=== PATIENT | female | born 1945 | race Caucasian/White ===

== ENCOUNTER 2017-03-29 09:29 | Outpatient (CLI) | payer MEDICARE, MEDICAID ==
[2017-03-29 11:55] LABS: Hematocrit 35.4 % (36.0-47.0); Mean Platelet Volume 6.8 fL (7.4-10.4); Red Blood Cell (RBC) Count 3.98 mill/uL (4.20-5.40); White Blood Cell (WBC) Count 8.9 thou/uL (4.8-10.8)
[2017-03-29 12:00] LABS: PTT 34.4 SEC (22.9-36.1); Prothrombin Time 14.7 SEC (12.0-14.7)
[2017-03-29 12:22] LABS: ALT (SGPT) 32 U/L (8-55); AST (SGOT) 35 U/L (5-34); Alkaline Phosphatase 149 U/L (40-150); Anion Gap 12 mmol/L (10-20); BUN (Urea Nitrogen) 9 mg/dL (9.8-20.1); Bilirubin, Total 0.8 mg/dL (0.2-1.2); Calc. Creatinine Clearance 0 mL/min (70-130); Calcium 9.3 mg/dL (7.8-10.44); Carbon Dioxide 27 mmol/L (23-31); Chloride 104 mmol/L (98-107); Cholesterol 117 mg/dl (< 200 Desired); Estimated GFR-MDRD 79; Globulin 3.2 g/dL (2.4-3.5); LDL Cholesterol, Calculated 61 mg/dL; Protein, Total 6.8 g/dL (6.0-8.3)
== END 2017-03-29 09:30 | disposition home or self-care (01) ==
LOC: LABBT 09:29
PROVIDERS: ATTEND Internal Medicine Cardiovascular Disease
DX: Z01.818 Encounter for other preprocedural examination (principal); R94.39 Abnormal result of other cardiovascular function study
CPT/HCPCS: 80053; 80061; 85027; 85610; 85730; 93005; 93010

== ENCOUNTER 2019-01-29 11:52 | Inpatient (IN) | payer MEDICARE, MEDICAID ==
[~2019-01-29 11:52] MED LIST: Iopamidol 370 76% 100 ML VIAL ONE
[2019-01-29] MEDS ORDERED: Midazolam HCl 5 mg/ml Vial ONE ×3 (12:02→13:37)
[2019-01-29] MEDS ORDERED: Fentanyl 100 MCG/2 ML VIAL ONE ×4 (12:02→13:37)
[2019-01-29 12:09] LABS: Actual Bicarbonate (HCO3a) 19.1 mEq/L (22-28); Analyzer IN Cardio ER; Base Excess (BEa) -8.9 mEq/L (-2.0 to +3.0); Calcium, Ionized 1.26 mmol/L (1.12-1.30); Carboxyhemoglobin (COHb) 0.1 gm% (0.0-3.0); Hemoglobin (Hb) 11.8 g/dL (12.0-16.0); Potassium - ABG Lab 3.64 mmol/L (3.70-5.30)
[2019-01-29 12:11] LABS: Puncture Site LR
[2019-01-29 12:52] LABS: Hemoglobin 10.5 g/dL (12.0-16.0); Mean Corpuscular HGB CONC 32.7 g/dL (32.0-36.0); Mean Corpuscular Hemoglobin 27.4 pg (27.0-31.0); Mean Corpuscular Volume 83.8 fL (78.0-98.0); RBC Distribution Width 15.1 % (11.5-14.5); Red Blood Cell (RBC) Count 3.84 mill/uL (4.20-5.40); White Blood Cell (WBC) Count 24.4 thou/uL (4.8-10.8)
[2019-01-29 13:04] LABS: Bilirubin Negative (Negative); Blood, Urine 2+ (Negative); Clarity Clear (Clear); Glucose, Urine (Dipstick) 500 mg/dL (Negative); Leukocyte 25 Leu/uL (Negative); Nitrite Negative (Negative); Protein, Urine (Dipstick) 100 mg/dL (Neg-Trace); Squamous Epithelial 0-3 HPF (0-3)
[2019-01-29 13:08] LABS: Anisocytosis SLIGHT = 6-15 cells (100X) (0-5/hpf); Band 23 % (5-11); Lymphocytes 1 % (21-51); MDiff Complete? YES; Mean Platelet Volume 9.1 fL (7.4-10.4); Monocytes 1 % (0-10); Neutrophil 75 % (42-75); Ovalocytes SLIGHT = 2-5 cells (100X) (0-1/hpf); Platelet Count 36 thou/uL (130-400); Platelet Morphology Comment Appears Decreased; Polychromasia SLIGHT = 2-3 cells (100X) (0-2/hpf)
[2019-01-29 13:12] LABS: Bacteria/HPF 2+ HPF (None Seen)
--- NOTE | 2019-01-29 13:21 | RAD ---
PORTABLE CHEST: Date: 01/29/19 HISTORY: Mental status change. COMPARISON: 04/17/12. FINDINGS: ET tube and NG tube have been placed and appear adequately positioned. There is hazy alveolar infiltr ate in both upper lungs. Lower lobes appear clear. Heart is mildly enlarged. IMPRESSION: Hazy bilateral upper lobe infiltrative changes. POS: [facility]
[2019-01-29] MEDS ORDERED: Fentanyl 20 mcg/ml (100 ml CADD) IV PRN (13:31)
[2019-01-29 13:59] LABS: INR-International Normal Ratio 1.5; PTT 24.1 SEC (22.9-36.1)
[2019-01-29] MEDS ORDERED: Azithromycin 500 MG in Sodium Chloride 0.9% 250 ML 250 ML IVPB SCH (14:00)
--- NOTE | 2019-01-29 14:05 | CT ---
CT head without contrast: Multiple axial tomograms obtained through the head without IV enhancement. INDICATIONS: Postintubation COMPARISON: None FINDINGS: Ventricles have normal size and position. No evidence of intracranial mass, hemorrhage, edema, or infarct. Visualized sinuses and mastoids are aerated. Small air-fluid levels in both maxillary sinuses Bony calvarium appears unremarkable. IMPRESSION: No acute finding
--- NOTE | 2019-01-29 14:16 | RAD ---
PORTABLE CHEST: Date: 01/29/19 HISTORY: Post line placement. COMPARISON: Earlier exam same date. FINDINGS: There has now been placement of a right-sided central line. Catheter tip overlies the superior vena c vince. No signs of pneumothorax. No other interval change. IMPRESSION: Placement of right-sided central line. No signs of pneumothorax. POS: [facility]
--- NOTE | 2019-01-29 14:23 | CT ---
EXAM: CTA of the chest HISTORY: Difficulty breathing and severe back pain COMPARISON: None TECHNIQUE: Multiple contiguous axial images were obtained a CTA of the chest with contrast per pulmon tristian embolism protocol. 3-D oblique MIP reformats and direct coronal reformats were performed. FINDINGS: HEART: Normal in size without focal cardiac abnormality. PULMONARY ARTERIES: Normal in caliber without filling defects to suggest pulmonary emboli. MEDIASTINUM: No hilar or mediastinal lymphadenopathy. An NG tube is seen with its tip in the stomach. An endotracheal tube is seen with its tip above the graciela. A central venous catheter is seen with its tip in the superior vena cava. LUNGS: Moderate dependent atelectasis is seen PLEURAL SPACE: No pleural effusion or pneumothorax. CHEST WALL SOFT TISSUES: Unremarkable VISUALIZED OSSEOUS STRUCTURES: Degenerative changes in the spine IMPRESSION: 1. No evidence of pulmonary thromboembolism 2. Moderate dependent atelectasis EXAM: CTA abdomen and pelvis with IV contrast CLINICAL INFORMATION: Difficulty breathing and severe back pain COMPARISON: None. TECHNIQUE: Multiple contiguous axial images were obtained and a CTA of the abdomen and pelvis with IV contrast. 3-D Coronal and sagittal MIP reformats were performed. FINDINGS: Abdomen: Liver: Cirrhotic without focal liver lesions. Bile Ducts: Normal caliber. Gallbladder: Large calcified gallstone. Pancreas: within normal limits. Spleen: within normal limits. There is a spontaneous left splenorenal shunt. Adrenals: within normal limits. Kidneys: within normal limits. Pelvis: Reproductive Organs: No pelvic masses. Ureters: within normal limits. Bladder: Decompressed by Cheng catheter. Peritoneum: No ascites or free air, no fluid collection. Bowel: Normal caliber. Scattered diverticula in the colon. Mesentery and Retroperitoneum: No enlarged mesenteric or retroperitoneal lymph nodes. Vessels: Atherosclerotic calcifications in the aorta. No evidence of dissection or aneurysmal dilatat ion. The celiac trunk, SMA, and SRINATH are patent. A single renal artery is seen on each side without significant atherosclerotic disease. Abdominal Wall: within normal limits. Bones: Degenerative changes in the spine. IMPRESSION: 1. Cirrhosis with sequelae of portal hypertension 2. Cholelithiasis 3. Diverticulosis 4. No evidence of aortic dissection or aneurysmal dilatation.
[2019-01-29] MEDS ORDERED: Azithromycin 500 MG VIAL ONE (14:35)
[2019-01-29] MEDS ORDERED: cefTRIAXone\\ROCEPHIN 2 GM VIAL ONE (14:35)
[2019-01-29 14:57] LABS: ALT (SGPT) 18 U/L (8-55); AST (SGOT) 40 U/L (5-34); Alkaline Phosphatase 131 U/L (40-110); Anion Gap 12 mmol/L (10-20); BUN (Urea Nitrogen) 10 mg/dL (9.8-20.1); Bilirubin, Total 1.2 mg/dL (0.2-1.2); Calc. Creatinine Clearance 0 mL/min (70-130); Calcium 8.7 mg/dL (7.8-10.44); Carbon Dioxide 22 mmol/L (23-31); Chloride 108 mmol/L (98-107); Estimated GFR-MDRD 59; Globulin 2.8 g/dL (2.4-3.5); Glucose 273 mg/dL (83-110); Potassium 3.5 mmol/L (3.5-5.1); Protein, Total 5.8 g/dL (6.0-8.3); Sodium 138 mmol/L (136-145)
[2019-01-29] MEDS ORDERED: Ventilator Sedation Protocol 1 EACH FS ONE (15:51)
[2019-01-29] MEDS ORDERED: CCU Electrolyte Replacement 1 EACH FS ONE (15:51)
[2019-01-29] MEDS ORDERED: Sodium Chloride 0.9% 1,000 ML IV SCH (16:00)
[2019-01-29] MEDS ORDERED: Lorazepam 2 MG/ML VIAL SLOW IVP PRN (16:20)
[2019-01-29] MEDS ORDERED: Fentanyl BOLUS 250 ML IVPB PRN (16:20)
[2019-01-29] MEDS ORDERED: DISCONTINUE PREVIOUS NARCOTIC PAIN MEDICATIONS AND BENZODIAZEPINES FS SCH (16:20)
[2019-01-29] MEDS ORDERED: Propofol BOLUS 1,000 MG/100 ML VIAL IV PRN (16:20)
[2019-01-29] MEDS ORDERED: Morphine 2 MG/ML SYRINGE SLOW IVP PRN (16:20)
--- NOTE | 2019-01-29 16:20 | CON ---
DATE OF CONSULTATION: 01/29/2019 REASON FOR CONSULTATION: New left bundle-branch block. HISTORY OF PRESENT ILLNESS: Mrs. Rodriguez is a 73-year-old white female, who comes to the hospital via EMS. She called EMS apparently for severe back pain and difficulty breathing. When EMS got to her, she was cyanotic, hypoxic and had to be intubated in the field for airway protection and hypoxia. Apparently, she had pink frothy sputum in her ET tube. She had a fever as well and was tachycardic, but blood pressure was in the 130s. She was brought in and initial EKG showed a new onset left bundle branch block. Cardiology was called. I rushed to her bedside. She soon went back down her heart rate. Once it crossed 108 and went lower than that, her QRS was shorter and had a normal EKG just in sinus tachycardia with no ST elevations. Currently, she is intubated and not give any history. PAST MEDICAL HISTORY: From chart review: 1. Type 2 diabetes. 2. COPD. 3. Hypertension. 4. Hypothyroidism. 5. Hyperlipidemia. PAST SURGICAL HISTORY: 1. Tonsillectomy. 2. Back surgery. 3. Ovarian cyst. SOCIAL HISTORY: Per chart review. No alcohol, tobacco, or drugs. ALLERGIES: 1. PENICILLIN. 2. CODEINE. 3. IODINE. 4. BETADINE. 5. SULFA DRUGS. MEDICATIONS: Outpatient medications from previous admissions show 1. Tramadol. 2. Metformin. 3. Verapamil. 4. Valsartan. 5. Levothyroxine. 6. Ibuprofen. 7. Atorvastatin. FAMILY HISTORY: Unobtainable. REVIEW OF SYSTEMS: Unobtainable as the patient is intubated. PHYSICAL EXAMINATION: VITAL SIGNS: Temperature is 102, pulse 104, respiratory rate 28, saturating 99% on 100% FiO2, blood pressure 142/77. GENERAL: Sedated, intubated. LUNGS: Have coarse breath sounds bilaterally. Distant lungs sounds. CARDIOVASCULAR: S1 and S2. Distant heart sounds. ABDOMEN: Soft. EXTREMITIES: Trace edema. SKIN: Warm and dry. LABORATORY DATA: Laboratory work was reviewed. White count of 24, hemoglobin of 10.5, hematocrit 32, platelet count of 36. Coags were reviewed. ABG was reviewed. Chemistries were reviewed. Glucose was 273. Lactic acid was 4. Albumin of 3.0. BNP was 92. Troponin was 0.63 and CK-MB is normal at 3. Urine study shows 2+ blood, 11-20 red cells, 7-10 white cells, 2+ bacteria. EKG initially showed a left bundle branch block. Once her heart rate started to come down she was in sinus tachycardia with no ST changes to suggest acute ischemia. CT of the chest was reviewed. It showed no evidence of pulmonary embolism. No evidence of dissection. There is what appears to be cirrhosis with portal hypertension, cholelithiasis and diverticulosis. CT of the brain showed no acute findings. ASSESSMENT AND PLAN: 1. Acute hypoxic hypercapnic respiratory insufficiency. 2. Non-ST elevation myocardial infarction, likely a type 2 demand type of ischemia. 3. Rate related left bundle branch block resolved once her heart rate does go below 108. PLAN: 1. Continue to trend troponins. 2. Continue supportive care. 3. We will do an echocardiogram to assess LV function valvular structures. 4. No plan on an invasive approach at this time as this is most likely a type 2 demand type of ischemia. Thank you for letting us to participate in the care of your patient. We will follow 45 minutes critical care time delivered at bedside. Job ID: [id number]
[2019-01-29] MEDS ORDERED: PHOS-NAK 1 PKT PACK PO PRN ×2 (16:22)
[2019-01-29] MEDS ORDERED: Potassium Phosphate 12 MMOL in Sodium Chloride 0.9% 250 ML 250 ML IV PRN (16:22)
[2019-01-29] MEDS ORDERED: CCU ELECTROLYTE REPLACEMENT PROTOCOL FS PRN (16:22)
[2019-01-29] MEDS ORDERED: Magnesium Oxide 400 MG TAB PO PRN ×2 (16:22)
[2019-01-29] MEDS ORDERED: Potassium Phosphate 9 MMOL in Sodium Chloride 0.9% 100 ML IVPB PRN (16:22)
[2019-01-29] MEDS ORDERED: Potassium Phosphate 15 MMOL in Sodium Chloride 0.9% 250 ML 250 ML IV PRN (16:22)
[2019-01-29] MEDS ORDERED: Magnesium 2 GM/50 ML 2 GM in Premix Bag 1 BAG IVPB PRN (16:22)
[2019-01-29] MEDS ORDERED: Potassium Chloride 20 MEQ TAB PO PRN (16:22)
[2019-01-29] MEDS ORDERED: Potassium Chloride 40 MEQ in Sodium Chloride 0.9% 250 ML 250 ML IVPB PRN (16:22)
--- NOTE | 2019-01-29 16:49 | CON ---
DATE OF CONSULTATION: 01/29/2019 This is 45 minutes critical care time. REASON FOR CONSULTATION: Respiratory failure, requiring mechanical ventilation. HISTORY OF PRESENT ILLNESS: The patient is a 73-year-old female, who comes to the ER with complaints of back pain and difficulty breathing. Apparently, she was intubated en route after having difficulty breathing. She is currently on mechanical ventilation. The workup has included a CT angiogram of the chest, which demonstrated moderate dependent bilateral atelectasis, cirrhosis with portal hypertension. Initially, she had a left bundle branch block, which resolved. Brain CT had no acute findings. Currently, she is intubated and noncommunicative. The information I have is gleaned by reviewing the records in the chart and by talking with nursing personnel. PAST MEDICAL HISTORY: 1. Diabetes mellitus, type 2. 2. COPD. PAST SURGICAL HISTORY: Tonsillectomy, back surgery, and ovarian cyst removal. SOCIAL HISTORY: Apparently, does not smoke. Does not use alcohol. ALLERGIES: CODEINE AND PENICILLIN. MEDICATIONS: Prior to admission, currently not known. REVIEW OF SYSTEMS: Cannot be obtained. The patient is currently on mechanical ventilation. PHYSICAL EXAMINATION: VITAL SIGNS: Temperature is 100.9, pulse 94, blood pressure 132/64, and O2 saturation 100%. GENERAL: She will wake up. She will open her eyes. She will squeeze hands appropriately when asked. HEENT: Unremarkable. NECK: No adenopathy or JVD. LUNGS: Fairly clear anteriorly. CARDIAC: S1 and S2. Regular. ABDOMEN: Morbidly obese, and nontender to palpation. EXTREMITIES: No clubbing, cyanosis, or edema. LABORATORY DATA: White blood cell count 24.4, hematocrit 32.2, and platelet count 36. INR is 1.5. The patient has 75% neutrophils, 23% bands. A pH is 7.20, pCO2 of 50, pO2 of 148, that is on SIMV rate 22, tidal volume 450, PEEP 5, pressure support 10, FiO2 of 100%. Sodium 138, potassium 3.5, chloride 108, CO2 of 22, BUN 10, creatinine 0.9, glucose 273. Lactate was 4. AST 40, ALT 18, troponin 0.63, and albumin 3.0. CT pulmonary angiogram was reviewed. There is no evidence of thromboembolism. There is no evidence of aortic dissection. CT of the chest shows bilateral infiltrative changes in the lower one-third of the lungs with air bronchograms probably consistent with pneumonia. ASSESSMENT: 1. Community-acquired pneumonia. 2. Jzy-JN-whwsvyd elevation myocardial infarction. 3. Acute respiratory failure, requiring mechanical ventilation. 4. Probable underlying chronic obstructive pulmonary disease given history. 5. Cirrhosis. 6. Thrombocytopenia, which is probably secondary to cirrhosis. 7. Transient hypotension, which appears to be resolved. PLAN: The patient has been placed in the ICU. She will receive broad-spectrum IV antibiotics. She will be fluid resuscitated. Laboratory tests will be trended. The above encompassed 45 minutes of critical care time. Job ID: [id number]
[2019-01-29 17:24] LABS: Troponin I 3.877 ng/mL (< 0.028)
[2019-01-29] MEDS ORDERED: Aspirin 325 MG TAB PER TUBE SCH (17:45)
[2019-01-29] MEDS ORDERED: Enoxaparin Sodium 120 MG/0.8 ML SYRINGE SC SCH (17:45)
[2019-01-29] MEDS: Sodium Chloride 0.9% 1,000 ML IV SCH (18:05)
[2019-01-29] MEDS: Propofol 1,000 MG/100 ML VIAL IV PRN (18:10)
[2019-01-29 19:36] LABS: Troponin I 3.898 ng/mL (< 0.028)
--- NOTE | 2019-01-29 20:59 | HP ---
PRIMARY CARE PROVIDER: Cindi Boyd DO. CHIEF COMPLAINT: Back pain and shortness of breath. HISTORY OF PRESENT ILLNESS: This is a 73-year-old female who presented to [facility] Emergency Department in transport by EMS personnel after they were initially called to her home complaining of severe back pain and difficulty breathing. The patient was reported by EMS personnel to be cyanotic and hypoxic, undergoing intubation in the home. The patient was also noted with pink frothy sputum in her ET tube per EMS reports. The patient was also noted febrile and tachycardic with normal blood pressure. History is obtained after discussions with the emergency room attending as well as review of electronic medical record and EMS reports. The patient currently on mechanical ventilation and unable to provide any history. In the emergency room, the patient underwent extensive evaluation including chest imaging and CT angiogram of the chest. Bilateral infiltrates were noted; however, CT angiogram ruled out evidence of pulmonary embolus or dissection. The patient did meet sepsis protocol receiving IV Rocephin, azithromycin, in addition to intravenous normal saline and fentanyl. The patient was noted with elevated lactic acid level; white blood cell count of 24,000; and troponin I trending from 0.638 to 3.88. The patient was transferred to the critical care unit for further evaluation. PAST MEDICAL HISTORY: 1. Chronic obstructive pulmonary disease. 2. Diabetes mellitus type 2. 3. Hypertension. 4. Hypothyroidism. PAST SURGICAL HISTORY: 1. Status post tonsillectomy. 2. Status post back surgery. 3. Status post ovarian cystectomy. CURRENT MEDICATIONS: Based on previous evaluation in the electronic medical record of 2017; 1. Lipitor 10 mg p.o. at bedtime. 2. Levothyroxine 137 mcg p.o. daily. 3. Metformin 1000 mg p.o. b.i.d. 4. Tramadol 50 mg p.o. q.6 hours p.r.n. 5. Valsartan 160 mg p.o. daily. 6. Verapamil 180 mg p.o. daily. ALLERGIES: TO CODEINE, PENICILLIN, IODINE, AND SOAP. FAMILY HISTORY: Positive for hypertension. SOCIAL HISTORY: Resides in [place], [place]. Retired. No current alcohol, tobacco, or illicit drug use. REVIEW OF SYSTEMS: Unable to obtain due to the patient on mechanical ventilation. PHYSICAL EXAMINATION: VITAL SIGNS: On admission, blood pressure 163/91, pulse 126, respiratory rate 30, O2 saturation 98% on 100% FiO2 by mechanical ventilation. GENERAL APPEARANCE: This is a 73-year-old female, on current mechanical ventilation, grimacing, shaking her head in moderate distress. HEENT: Pupils are equal, round, reactive to light and accommodation. Extraocular muscles are intact. No scleral icterus. No conjunctival injection. Nares patent. OP is clear. ET tube and OGT tube in place. NECK: Supple. No cervical adenopathy. No thyromegaly. No carotid bruits. No JVD appreciated. Cervical spine with full active and passive range of motion. No meningeal signs noted. CHEST: Diminished breath sounds in the bases bilaterally with occasional rhonchi. CARDIOVASCULAR: S1 and S2 with tachycardia. Distant heart sounds. ABDOMEN: Obese with landmarks difficult to palpate due to the patient's body habitus. No rebound or guarding appreciated. Bowel sounds are positive in all 4 quadrants. EXTREMITIES: Warm and dry with fair turgor. Mild edema to the lower extremities bilaterally. Pulses are palpable distally at the dorsalis pedis, posterior tibial, and popliteal arteries bilaterally. Capillary refill less than 2 seconds. NEUROLOGIC: Agitated, opens eyes to name. Moves all extremities. PERTINENT LABORATORY AND X-RAY FINDINGS: Sodium is 138, potassium 3.5, chloride 108, CO2 of 22, BUN 10, creatinine 0.94, estimated GFR 59, glucose 273, lactic acid level 4.0, calcium 8.7, total bilirubin 1.2, AST 40, ALT of 18, alkaline phosphatase 131. Troponin I ranged between 0.638 to 3.88. BNP 93. Albumin 3.0. CBC showed a white blood cell count of 24.4, hemoglobin 10.5, hematocrit 32, platelet count 36,000, and 75% neutrophils with 23% bands. PT 18, INR 1.5, PTT 24.1. ABG dated 01/29/2019, at 12:04 p.m. showed a pH of 7.20, pCO2 of 50, pO2 of 148, bicarb 19, with 98% O2 saturation on 100% FiO2 by SIMV. CT of the brain without contrast dated 01/29/2019, showed no acute intracranial process. CT angiogram of the chest dated 01/29/2019, showed no evidence of pulmonary embolus. Moderate dependent atelectasis. Cirrhotic changes of the liver noted with portal hypertension with cholelithiasis, diverticulosis, but no evidence of aortic dissection or aneurysmal dilation. Portable chest x-ray dated 01/29/2019, showed bilateral upper lobe infiltrates. EKG dated 01/29/2019, by my interpretation shows sinus tachycardia with heart rates in the 120s. Attenuated R-waves noted in the precordial leads. Left bundle-branch block noted. Left axis deviation. Repeat EKG dated 01/29/2019, showed sinus tachycardia with resolution of bundle branch block pattern. ASSESSMENT AND PLAN: 1. Acute hypoxic hypercapnic respiratory failure. Suspect multifactorial process including component of [id number]-DG-[id number] myocardial infarction. Questionable developing community-acquired pneumonia and sepsis. We will continue SIMV titrating to clinical response. Pulmonary Critical Care Service consulted for ventilatory management. See below for management options. Repeat ABG and portable chest x-ray in the a.m. 2. Sepsis secondary to probable bacterial pneumonia. We will continue general sepsis protocol. Serial lactic acid measurement. Continue Levaquin and vancomycin. Await blood and urine culture results. 3. Lyc-VX-uppvhopoh myocardial infarction. We will continue trending of cardiac biomarkers. Lovenox 1 mg/kg subcutaneously x1 now and q.12 hours thereafter. Aspirin 325 mg per OGT. 2D transthoracic echocardiogram pending. Cardiology consultation obtained for further recommendations and monitoring. 4. Left bundle branch block pattern. Suspect secondarily to [id number]-NW-vysxjbkxa myocardial infarction in conjunction with respiratory failure and sepsis. See management above. Continue telemetry monitoring. 5. Hepatic cirrhosis with thrombocytopenia. We will continue to monitor clinically. No current evidence to suggest hepatic decompensation currently. 6. Hypertension. Continue hydralazine 10 mg IV q.4 hours as needed for systolic blood pressure greater than or equal to 180. Confirm home blood pressure regimen. 7. Morbid obesity. Consider dietitian consult. 8. Prophylaxis. Sequential compression devices while in bed. Protonix 40 mg IV daily. 9. Code status is full. Surrogate medical decision maker is the patient's son. Job ID: [id number]
[2019-01-29] MEDS: Vancomycin HCl 1 GM in Premix Bag 1 BAG IVPB SCH (21:51)
[2019-01-30] MEDS: Propofol 1,000 MG/100 ML VIAL IV PRN ×2 (02:00→20:17)
[2019-01-30 04:49] LABS: #Lymphocytes 0.7 thou/uL (1.20-3.40); #Monocytes 0.9 thou/uL (0.11-0.59); #Neutrophils 10.1 thou/uL (1.40-6.50); %Basophils 0.1 % (0.0-1.0); %Eosinophils 0.1 % (0.0-10.0); %Lymphocytes 6.3 % (21.0-51.0); %Neutrophils 85.7 % (42.0-75.0); Hemoglobin 9.3 g/dL (12.0-16.0); Mean Corpuscular HGB CONC 32.8 g/dL (32.0-36.0); Mean Corpuscular Hemoglobin 28.1 pg (27.0-31.0); Mean Corpuscular Volume 85.5 fL (78.0-98.0); Mean Platelet Volume 8.1 fL (7.4-10.4); Platelet Count 68 thou/uL (130-400); RBC Distribution Width 15.4 % (11.5-14.5); Red Blood Cell (RBC) Count 3.32 mill/uL (4.20-5.40); White Blood Cell (WBC) Count 11.8 thou/uL (4.8-10.8)
[2019-01-30 04:52] LABS: Hemoglobin A1c 5.9 % (4.0-6.0)
[2019-01-30 05:04] LABS: Anion Gap 9 mmol/L (10-20); BUN (Urea Nitrogen) 14 mg/dL (9.8-20.1); Calc. Creatinine Clearance 114 mL/min (70-130); Calcium 8.7 mg/dL (7.8-10.44); Carbon Dioxide 22 mmol/L (23-31); Chloride 110 mmol/L (98-107); Estimated GFR-MDRD 64; Glucose 154 mg/dL (83-110); Magnesium 1.4 mg/dL (1.6-2.6); Potassium 3.2 mmol/L (3.5-5.1); Sodium 138 mmol/L (136-145)
[2019-01-30] MEDS: Sodium Chloride 0.9% 1,000 ML IV SCH ×3 (06:14→18:45)
[2019-01-30 06:47] LABS: Actual Bicarbonate (HCO3a) 19.7 mEq/L (22-28); Base Excess (BEa) -2.1 mEq/L (-2.0 to +3.0); Calcium, Ionized 1.22 mmol/L (1.12-1.30); Carboxyhemoglobin (COHb) 0.8 gm% (0.0-3.0); Hemoglobin (Hb) 9.8 g/dL (12.0-16.0); O2 Tension (PaO2) 70.7 mmHg (> 70.0); Potassium - ABG Lab 3.23 mmol/L (3.70-5.30); pH, Arterial 7.53 (7.35-7.45)
[2019-01-30 06:50] LABS: CO2 Tension 24.4 mmHg (35.0-45.0); Puncture Site RRA
--- NOTE | 2019-01-30 06:53 | PRG ---
DATE OF SERVICE: 01/30/2019 TIME SPENT: 35 minutes of critical care time. SUBJECTIVE: The patient remains intubated on mechanical ventilation. There have been no acute changes overnight. She is sedated on propofol and fentanyl. OBJECTIVE: VITAL SIGNS: Her temperature is 98.9, pulse 72, blood pressure 111/54, sat 98%, and respiratory rate 28. Intake for last 24 hours 577, output 555. HEENT: Unremarkable. NECK: No adenopathy or JVD. LUNGS: Diminished breath sounds at both bases. CARDIAC: S1, S2. Regular. No murmur. ABDOMEN: Obese, soft, nontender, and nondistended. EXTREMITIES: No clubbing, cyanosis, or edema. LABORATORY DATA: Sodium 138, potassium 3.2, chloride 110, CO2 of 22, BUN 14, creatinine 0.8, glucose 154, and magnesium 1.4. TSH 0.3. Hemoglobin A1c was 5.9. White blood cell count 11.8, hematocrit 28.4, and platelet count 68. Her chest x-ray was rotated, bilateral lower lobe infiltrates are evident. ET tube and central line are in good position. ASSESSMENT: 1. Acute hypoxic respiratory failure, requiring mechanical ventilation. 2. Community-acquired pneumonia. 3. Non ST-segment elevation myocardial infarction. 4. Probable underlying chronic obstructive pulmonary disease. 5. Cirrhosis. 6. Thrombocytopenia, which is probably secondary to cirrhosis. 7. Transient hypotension which resolved. PLAN: 1. Continue supportive care with mechanical ventilation, adjusting ventilatory rate and tidal volume as needed. 2. Continue IV antibiotics. 3. Replace magnesium and potassium. 4. Continue to monitor labs. 5. I do not think she is weanable at this time, probably remained ventilated over the weekend. 6. Initiate enteral tube feeds. Job ID: [id number]
[2019-01-30] MEDS: Pantoprazole 40 MG VIAL IVP SCH (08:36)
[2019-01-30] MEDS: Vancomycin HCl 1 GM in Premix Bag 1 BAG IVPB SCH (08:37)
--- NOTE | 2019-01-30 10:11 | RAD ---
SINGLE VIEW CHEST: Date: 01/30/19 COMPARISON: 01/29/19. HISTORY: Pneumonia. FINDINGS: Single view of the chest shows an enlarged cardiomediastinal silhouette. The lines and tubes are unch anged in position. There are bilateral veil-like opacities which likely representing layering pleural effusions. Perihilar fullness is seen which may represent infiltrates or enlarged pulmonary vasculat ure. IMPRESSION: Bilateral pleural effusions with adjacent atelectasis versus infiltrates. POS: [facility]
[2019-01-30] MEDS ORDERED: VANCOMYCIN IVPB PRN (11:24)
[2019-01-30] MEDS: fentaNYL Citrate/PF 2,000 MCG in Sodium Chloride 0.9% 60 ML IV SCH (15:30)
--- NOTE | 2019-01-30 20:09 | PDOC.HOSPP ---
- Subjective Encounter Date: 01/30/19 Encounter Time: 13:54 Subjective: 73 y/o female with COPD, hTN and liver cirrhosis admitted with respiratory distress requiring intubation. Patient reportedly developed worsening backpain and SOB. Found by EMS to be hypoxic and cyanotic hence was intubated at her home. Further evaluation showed LBBB, bilateral infiltrates, and elevated troponin. Still intubated. - Objective Vital Signs & Weight: Vital Signs (12 hours) Temp Pulse Resp Pulse Ox 01/30/19 19:02 87 97 01/30/19 16:00 99.3 F 01/30/19 13:57 97 01/30/19 12:00 99 F 01/30/19 10:35 68 01/30/19 10:00 99.5 F 17 01/30/19 09:00 99.7 F H Weight Admit Weight 268 lb Weight 268 lb 15.423 oz Most Recent Monitor Data Heart Rate from ECG 88 NIBP 138/85 NIBP BP-Mean 102 Respiration from ECG 18 SpO2 97 I&O: 01/29/19 01/30/19 01/31/19 06:59 06:59 06:59 Intake Total 1871.0 2284 Output Total 670 430 Balance 1201.0 1854 Result Diagrams: 01/30/19 04:30 01/30/19 03:30 Hospitalist ROS - Medication Medications: Active Medications Generic Name Dose Route Start Last Admin Trade Name Freq PRN Reason Stop Dose Admin Albuterol/Ipratropium 3 ml 01/29/19 18:30 01/30/19 19:02 Duoneb NEB 3 ml [id number] CHEO Administration Sodium Chloride 1,000 mls @ 100 mls/hr 01/29/19 16:00 01/30/19 18:45 Normal Saline 0.9% IV 1,000 mls .Q10H CHEO Administration Ascorbic Acid 1,500 mg/ Sodium 53 mls @ 100 mls/hr 01/29/19 18:00 01/30/19 17 :14 Chloride IVPB 02/02/19 18:01 53 mls Q6HR [facility]O Administration Levofloxacin 750 mg/ Device 150 mls @ 100 mls/hr 01/29/19 17:00 01/30/19 16: 32 IVPB 150 mls Q24HR [facility]O Administration Thiamine HCl 200 mg/ Sodium 52 mls @ 100 mls/hr 01/29/19 21:00 01/30/19 08:37 Chloride IVPB 02/02/19 21:01 52 mls Q12HR [facility]O Administration Vancomycin HCl 1 gm/ Device 200 mls @ 200 mls/hr 01/29/19 21:00 01/30/19 08: 37 IVPB 200 mls Q12HR CHEO Administration Fentanyl Citrate 2,000 mcg/ 100 mls @ 0 mls/hr 01/29/19 16:20 01/30/19 15:30 Sodium Chloride IV 02/28/19 16:20 100 mls INF CHEO Administration Protocol Per Protocol Lorazepam 2 mg 01/29/19 16:20 01/30/19 14:35 Ativan SLOW IVP 02/28/19 16:20 2 mg Q1H PRN Administration Breakthrough agitation Pantoprazole Sodium 40 mg 01/30/19 09:00 01/30/19 08:36 Protonix IVP 40 mg DAILY CHEO Administration Potassium Chloride 40 meq 01/29/19 16:22 01/30/19 16:20 Klor-Con PER TUBE 40 meq ASDIR PRN Administration FOR SERUM K+ 2.5-3.5 Propofol 1,000 mg 01/29/19 16:20 01/30/19 02:00 Diprivan IV 02/28/19 16:20 1,000 mg INF PRN Administration TO ACHIEVE GOAL RASS Protocol Sodium Chloride 10 ml 01/30/19 09:00 01/30/19 08:36 Flush - Normal Saline IVF 10 ml Q12HR CHEO Administration - Exam General - other findings: sedated and mechanically ventilated ENT: normocephalic atraumatic ENT - other findings: Et tube in place Heart: RRR Respiratory - other findings: ventilator transmitted breathsound Gastrointestinal: soft, normal bowel sounds Extremities - other findings: erythema of right leg and foot noted Neurological: cranial nerve grossly intact Neurological - other findings: Sedated but wakes up with stimulation Hosp A/P (1) Acute respiratory failure with hypoxemia Code(s): J96.01 - ACUTE RESPIRATORY FAILURE WITH HYPOXIA Status: Acute (2) COPD exacerbation Code(s): J44.1 - CHRONIC OBSTRUCTIVE PULMONARY DISEASE W (ACUTE) EXACERBATION Status: Acute (3) CHF exacerbation Code(s): I50.9 - HEART FAILURE, UNSPECIFIED Status: Acute (4) Sepsis Code(s): A41.9 - SEPSIS, UNSPECIFIED ORGANISM Status: Acute (5) Bacteremia Code(s): R78.81 - BACTEREMIA Status: Acute (6) Cellulitis of right lower extremity Code(s): L03.115 - CELLULITIS OF RIGHT LOWER LIMB Status: Acute (7) Acute non-ST elevation myocardial infarction (NSTEMI) Code(s): I21.4 - NON-ST ELEVATION (NSTEMI) MYOCARDIAL INFARCTION Status: Acute (8) LBBB (left bundle branch block) Code(s): I44.7 - LEFT BUNDLE-BRANCH BLOCK, UNSPECIFIED Status: Acute (9) Hypothyroidism Code(s): E03.9 - HYPOTHYROIDISM, UNSPECIFIED Status: Acute (10) BHARGAV (acute kidney injury) Code(s): N17.9 - ACUTE KIDNEY FAILURE, UNSPECIFIED Status: Acute (11) Hypokalemia Code(s): E87.6 - HYPOKALEMIA Status: Acute (12) Hypomagnesemia Code(s): E83.42 - HYPOMAGNESEMIA Status: Acute - Plan Continue broad spectrum antibotics. Sedatives and mechanical ventilation as per Pulm/critical care Replete serum potassium and magnesium Awaiting ECHO Continue other treatments. Await microbe ID and susceptibility
[2019-01-30 20:36] LABS: Vancomycin, Trough 9.4 ug/mL
[2019-01-30] MEDS: Vancomycin HCl 1.25 GM in Sodium Chloride 0.9% 250 ML 250 ML IVPB SCH (21:26)
[2019-01-31] MEDS ORDERED: Propofol 1,000 MG/100 ML VIAL IV ONE (03:07)
[2019-01-31 04:35] LABS: #Lymphocytes 0.8 thou/uL (1.20-3.40); #Monocytes 0.7 thou/uL (0.11-0.59); #Neutrophils 7.4 thou/uL (1.40-6.50); %Basophils 0.2 % (0.0-1.0); %Eosinophils 0.4 % (0.0-10.0); %Lymphocytes 8.9 % (21.0-51.0); %Monocytes 7.5 % (0.0-10.0); Mean Corpuscular HGB CONC 31.7 g/dL (32.0-36.0); Mean Corpuscular Volume 88.4 fL (78.0-98.0); Mean Platelet Volume 8.6 fL (7.4-10.4); Platelet Count 71 thou/uL (130-400); White Blood Cell (WBC) Count 8.9 thou/uL (4.8-10.8)
[2019-01-31 04:48] LABS: Anion Gap 7 mmol/L (10-20); BUN (Urea Nitrogen) Less than 4 mg/dL (9.8-20.1); Calc. Creatinine Clearance 171 mL/min (70-130); Calcium 8.6 mg/dL (7.8-10.44); Carbon Dioxide 24 mmol/L (23-31); Chloride 112 mmol/L (98-107); Estimated GFR-MDRD Greater than 90; Glucose 164 mg/dL (83-110); Potassium 4.1 mmol/L (3.5-5.1); Sodium 139 mmol/L (136-145)
[2019-01-31 07:16] LABS: Actual Bicarbonate (HCO3a) 21.7 mEq/L (22-28); Base Excess (BEa) -3.8 mEq/L (-2.0 to +3.0); CO2 Tension 41.3 mmHg (35.0-45.0); Calcium, Ionized 1.29 mmol/L (1.12-1.30); Carboxyhemoglobin (COHb) 0.7 gm% (0.0-3.0); Hemoglobin (Hb) 10.1 g/dL (12.0-16.0); O2 Tension (PaO2) 84.6 mmHg (> 70.0); Potassium - ABG Lab 4.15 mmol/L (3.70-5.30); pH, Arterial 7.34 (7.35-7.45)
[2019-01-31 07:17] LABS: ALV-art Gradient 148.975 (0-20); Puncture Site RRA
[2019-01-31] MEDS: Sodium Chloride 0.9% 1,000 ML IV SCH (08:37)
[2019-01-31] MEDS: Pantoprazole 40 MG VIAL IVP SCH (08:37)
[2019-01-31] MEDS: Vancomycin HCl 1.25 GM in Sodium Chloride 0.9% 250 ML 250 ML IVPB SCH ×2 (10:15→21:39)
--- NOTE | 2019-01-31 12:15 | RAD ---
PORTABLE AP CHEST XRAY: HISTORY: Pneumonia. COMPARISON: 01/30/2019. FINDINGS: Lines and tubes remain stable in position. The cardiac silhouette appears enlarged. There is increa sed density seen at each lung base which appeared to represent bilateral pleural effusions, but recen t CTA of the chest on 01/29/2019 demonstrated consolidation involving the lower lobes bilaterally. Pu lmonary vasculature is within normal limits. Given differences in patient positioning, chest has not significantly changed compared to the prior study on 01/30/2019. IMPRESSION: 1. Increased bibasilar densities. Recent CTA chest demonstrated consolidation in the lower lobes hue aterally. 2. Lines and tubes stable in position. POS: OFF
[2019-01-31] MEDS: Propofol 1,000 MG/100 ML VIAL IV PRN ×2 (17:05→20:09)
--- NOTE | 2019-01-31 17:12 | PDOC.HOSPP ---
- Subjective Encounter Date: 01/31/19 Encounter Time: 14:11 Subjective: 73 y/o female with COPD, hTN and liver cirrhosis admitted with respiratory distress requiring intubation. Patient reportedly developed worsening backpain and SOB. Found by EMS to be hypoxic and cyanotic hence was intubated at her home. Further evaluation showed LBBB, bilateral infiltrates, and elevated troponin. Still intubated and mechanically ventilated. - Objective Vital Signs & Weight: Vital Signs (12 hours) Temp Pulse Resp BP Pulse Ox 01/31/19 16:00 98.1 F 19 01/31/19 15:38 95 149/60 H 01/31/19 14:00 20 01/31/19 13:39 79 140/64 01/31/19 12:00 98.9 F 15 01/31/19 10:27 73 128/60 01/31/19 10:00 17 01/31/19 08:55 78 01/31/19 08:00 98.9 F 16 97 01/31/19 07:57 71 134/70 Weight Admit Weight 268 lb Weight 268 lb 15.423 oz Most Recent Monitor Data Heart Rate from ECG 87 NIBP 137/70 NIBP BP-Mean 92 Respiration from ECG 15 SpO2 99 I&O: 01/30/19 01/31/19 02/01/19 06:59 06:59 06:59 Intake Total 1871.0 3835.5 Output Total 670 895 450 Balance 1201.0 2940.5 -450 Result Diagrams: 01/31/19 04:09 01/31/19 03:30 Hospitalist ROS - Medication Medications: Active Medications Generic Name Dose Route Start Last Admin Trade Name Freq PRN Reason Stop Dose Admin Albuterol/Ipratropium 3 ml 01/29/19 18:30 01/31/19 14:27 Duoneb NEB 3 ml [id number] CHEO Administration Sodium Chloride 1,000 mls @ 70 mls/hr 01/29/19 16:00 01/31/19 08:37 Normal Saline 0.9% IV 1,000 mls .[id number] CHEO Administration Ascorbic Acid 1,500 mg/ Sodium 53 mls @ 100 mls/hr 01/29/19 18:00 01/31/19 17 :05 Chloride IVPB 02/02/19 18:01 53 mls Q6HR CHEO Administration Levofloxacin 750 mg/ Device 150 mls @ 100 mls/hr 01/29/19 17:00 01/31/19 17: 05 IVPB 150 mls Q24HR CHEO Administration Thiamine HCl 200 mg/ Sodium 52 mls @ 100 mls/hr 01/29/19 21:00 01/31/19 09:17 Chloride IVPB 02/02/19 21:01 52 mls Q12HR CHEO Administration Fentanyl Citrate 2,000 mcg/ 100 mls @ 0 mls/hr 01/29/19 16:20 01/30/19 15:30 Sodium Chloride IV 02/28/19 16:20 100 mls INF CHEO Administration Protocol Per Protocol Vancomycin HCl 1.25 gm/ Sodium 250 mls @ 166.667 mls/hr 01/30/19 21:00 10:15 Chloride IVPB 250 mls Q12HR CHEO Administration Lorazepam 2 mg 01/29/19 16:20 01/30/19 14:35 Ativan SLOW IVP 02/28/19 16:20 2 mg Q1H PRN Administration Breakthrough agitation Pantoprazole Sodium 40 mg 01/30/19 09:00 01/31/19 08:37 Protonix IVP 40 mg DAILY CHEO Administration Potassium Chloride 40 meq 01/29/19 16:22 01/30/19 16:20 Klor-Con PER TUBE 40 meq ASDIR PRN Administration FOR SERUM K+ 2.5-3.5 Propofol 1,000 mg 01/29/19 16:20 01/31/19 17:05 Diprivan IV 02/28/19 16:20 1,000 mg INF PRN Administration TO ACHIEVE GOAL RASS Protocol Sodium Chloride 10 ml 01/30/19 09:00 01/31/19 08:37 Flush - Normal Saline IVF 10 ml Q12HR CHEO Administration - Exam General Appearance: awake alert General - other findings: obese Eye: anicteric sclera ENT: normocephalic atraumatic ENT - other findings: ET and NG tubes in place Neck: symmetric, no JVD Heart: RRR Respiratory - other findings: fair air entry bilaterally. Gastrointestinal: soft, non-distended, diminished bowl sounds Extremities: 1+ LE edema Extremities - other findings: mild erythema of right lower extremity Neurological - other findings: Sedated. Hosp A/P (1) Streptococcal bacteremia Code(s): R78.81 - BACTEREMIA; B95.5 - UNSP STREPTOCOCCUS THE CAUSE OF DISEASES CLASSD ELSWHR Status: Acute (2) Acute respiratory failure with hypoxemia Code(s): J96.01 - ACUTE RESPIRATORY FAILURE WITH HYPOXIA Status: Acute (3) COPD exacerbation Code(s): J44.1 - CHRONIC OBSTRUCTIVE PULMONARY DISEASE W (ACUTE) EXACERBATION Status: Acute (4) CHF exacerbation Code(s): I50.9 - HEART FAILURE, UNSPECIFIED Status: Acute (5) Sepsis Code(s): A41.9 - SEPSIS, UNSPECIFIED ORGANISM Status: Acute (6) Bacteremia Code(s): R78.81 - BACTEREMIA Status: Acute (7) Cellulitis of right lower extremity Code(s): L03.115 - CELLULITIS OF RIGHT LOWER LIMB Status: Acute (8) Acute non-ST elevation myocardial infarction (NSTEMI) Code(s): I21.4 - NON-ST ELEVATION (NSTEMI) MYOCARDIAL INFARCTION Status: Acute (9) LBBB (left bundle branch block) Code(s): I44.7 - LEFT BUNDLE-BRANCH BLOCK, UNSPECIFIED Status: Acute (10) Hypothyroidism Code(s): E03.9 - HYPOTHYROIDISM, UNSPECIFIED Status: Acute (11) BHARGAV (acute kidney injury) Code(s): N17.9 - ACUTE KIDNEY FAILURE, UNSPECIFIED Status: Acute (12) Hypokalemia Code(s): E87.6 - HYPOKALEMIA Status: Acute (13) Hypomagnesemia Code(s): E83.42 - HYPOMAGNESEMIA Status: Acute (14) Streptococcus agalactiae infection Code(s): A49.1 - STREPTOCOCCAL INFECTION, UNSPECIFIED SITE Status: Acute - Plan Continue broad spectrum antibotics. Await strep agalactiae susceptibility Sedatives and mechanical ventilation as per Pulm/critical care Awaiting ECHO Monitor electrolytes and replete as needed. Continue other treatments.
[2019-01-31] MEDS: fentaNYL Citrate/PF 2,000 MCG in Sodium Chloride 0.9% 60 ML IV SCH (17:18)
--- NOTE | 2019-01-31 18:32 | PRG ---
DATE OF SERVICE: 01/31/2019 SUBJECTIVE: Ms. Rodriguez remains mechanically ventilated. OBJECTIVE: VITAL SIGNS: Blood pressure 137/70, heart rate 87, respiratory rates in the teens, oximetry is 99% to 100%. Intake and output are positive 2940. LUNGS: Remarkable for coarse equal breath sounds. HEART: Regular rhythm. ABDOMEN: Soft. EXTREMITIES: Without asymmetry. DIAGNOSTIC STUDIES: Chest x-ray today shows bilateral effusions. One blood culture grew out group B Strep. Urine culture grew out Enterococcus. The other blood culture was negative. White count 8.9, hemoglobin 9.0, platelets 71,000. Sodium 139, potassium 4.1, chloride 112, bicarb 24, BUN less than 4, creatinine 0.58. PH 7.34, CO2 of 41, PO2 of 84. IMV was decreased today. IMPRESSION: 1. Hypoxic respiratory failure, requiring mechanical ventilation. 2. Community-acquired pneumonia. 3. Cystitis. 4. Unt-UX-[id number] elevation myocardial infarction. 5. Underlying obstructive lung disease. 6. Underlying cirrhosis. 7. Thrombocytopenia, likely is part of the inflammatory response combined with the cirrhosis. We will continue ventilatory support. Currently, she is not weanable. As anticipated, we are making slow progress, but she is hemodynamically stable. Critical care time is 35 minutes. Job ID: [id number] MTDD
[2019-01-31] MEDS: hydrALAZINE 20 MG/ML VIAL SLOW IVP PRN (20:09)
[2019-02-01] MEDS: Sodium Chloride 0.9% 1,000 ML IV SCH ×2 (01:29→16:56)
[2019-02-01 04:39] LABS: #Lymphocytes 0.9 thou/uL (1.20-3.40); #Monocytes 0.5 thou/uL (0.11-0.59); #Neutrophils 6.9 thou/uL (1.40-6.50); %Eosinophils 0.4 % (0.0-10.0); %Lymphocytes 10.9 % (21.0-51.0); %Monocytes 5.9 % (0.0-10.0); %Neutrophils 82.8 % (42.0-75.0); Hemoglobin 8.9 g/dL (12.0-16.0); Mean Corpuscular HGB CONC 32.5 g/dL (32.0-36.0); Mean Corpuscular Hemoglobin 28.4 pg (27.0-31.0); Mean Corpuscular Volume 87.4 fL (78.0-98.0); Mean Platelet Volume 8.5 fL (7.4-10.4); Platelet Count 82 thou/uL (130-400); RBC Distribution Width 15.9 % (11.5-14.5); Red Blood Cell (RBC) Count 3.13 mill/uL (4.20-5.40); White Blood Cell (WBC) Count 8.4 thou/uL (4.8-10.8)
[2019-02-01 04:57] LABS: Anion Gap 7 mmol/L (10-20); BUN (Urea Nitrogen) 14 mg/dL (9.8-20.1); Calc. Creatinine Clearance 136 mL/min (70-130); Calcium 8.6 mg/dL (7.8-10.44); Carbon Dioxide 22 mmol/L (23-31); Chloride 112 mmol/L (98-107); Estimated GFR-MDRD 79; Glucose 188 mg/dL (83-110); Magnesium 1.8 mg/dL (1.6-2.6); Sodium 137 mmol/L (136-145)
[2019-02-01] MEDS: hydrALAZINE 20 MG/ML VIAL SLOW IVP PRN (05:09)
[2019-02-01 07:23] LABS: Actual Bicarbonate (HCO3a) 23.7 mEq/L (22-28); Base Excess (BEa) -2.4 mEq/L (-2.0 to +3.0); CO2 Tension 46.7 mmHg (35.0-45.0); Carboxyhemoglobin (COHb) 0.7 gm% (0.0-3.0); O2 Tension (PaO2) 82.4 mmHg (> 70.0); Potassium - ABG Lab 4.11 mmol/L (3.70-5.30); pH, Arterial 7.32 (7.35-7.45)
[2019-02-01 07:24] LABS: ALV-art Gradient 144.425 (0-20); Puncture Site LR
[2019-02-01 08:37] LABS: Vancomycin, Trough 14.8 ug/mL
[2019-02-01] MEDS: Magnesium Oxide 400 MG TAB PO SCH ×2 (08:43→21:37)
[2019-02-01] MEDS: fentaNYL Citrate/PF 2,000 MCG in Sodium Chloride 0.9% 60 ML IV SCH (08:43)
[2019-02-01] MEDS: Pantoprazole 40 MG VIAL IVP SCH (08:44)
[2019-02-01] MEDS ORDERED: Furosemide 40 MG/4 ML VIAL SLOW IVP SCH (09:00)
[2019-02-01] MEDS: Vancomycin HCl 1.25 GM in Sodium Chloride 0.9% 250 ML 250 ML IVPB SCH ×2 (09:16→21:44)
[2019-02-01] MEDS: Propofol 1,000 MG/100 ML VIAL IV PRN ×2 (12:24→18:04)
--- NOTE | 2019-02-01 12:27 | RAD ---
PORTABLE AP CHEST: Date: 02/01/19 HISTORY: Pneumonia. Follow-up evaluation. COMPARISON: 01/31/19. FINDINGS: Endotracheal tube, nasogastric tube, and right internal jugular vein central venous catheters remain in place and unchanged in position. Cardiac silhouette remains enlarged. Increased bibasilar densitie s are again seen, which may be related to bilateral pleural effusions and associated atelectasis. Mil d increased perihilar interstitial densities and alveolar opacities are seen on the right, which may be related to associated pneumonia. Pulmonary vasculature is at the upper limits of normal. No other interval change. IMPRESSION: Cardiomegaly and bilateral pleural effusions with increased perihilar interstitial and alveolar opaci ties which may be related to associated pneumonia in the right mid lung zone. Pneumonia at either louisa g base also could not be entirely excluded. POS: OFF
--- NOTE | 2019-02-01 14:06 | PDOC.HOSPP ---
- Subjective Encounter Date: 02/01/19 Encounter Time: 11:03 Subjective: 73 y/o female with COPD, hTN and liver cirrhosis admitted with respiratory distress requiring intubation. Patient reportedly developed worsening backpain and SOB. Found by EMS to be hypoxic and cyanotic hence was intubated at her home. Further evaluation showed LBBB, bilateral infiltrates, and elevated troponin. Still intubated, sedated and mechanically ventilated. No new problem. - Objective Vital Signs & Weight: Vital Signs (12 hours) Temp Pulse Resp BP Pulse Ox 02/01/19 13:37 77 125/62 02/01/19 12:00 98.2 F 19 02/01/19 10:43 75 139/61 02/01/19 10:00 16 02/01/19 08:00 99.7 F H 19 97 02/01/19 07:11 91 143/59 H 02/01/19 06:00 18 02/01/19 05:09 83 02/01/19 04:00 16 02/01/19 03:22 83 02/01/19 03:21 99 02/01/19 03:00 98.3 F Weight Admit Weight 268 lb Weight 268 lb 15.423 oz Most Recent Monitor Data Heart Rate from ECG 80 NIBP 125/62 NIBP BP-Mean 83 Respiration from ECG 14 SpO2 100 I&O: 01/31/19 02/01/19 02/02/19 06:59 06:59 06:59 Intake Total 3835.5 3072 50 Output Total 319 862 6634 Balance 2940.5 2137 -1430 Result Diagrams: 02/01/19 04:30 02/01/19 04:30 Hospitalist ROS - Medication Medications: Active Medications Generic Name Dose Route Start Last Admin Trade Name Freq PRN Reason Stop Dose Admin Albuterol/Ipratropium 3 ml 01/29/19 18:30 02/01/19 10:42 Duoneb NEB 3 ml [id number] CHEO Administration Furosemide 60 mg 02/01/19 09:00 02/01/19 08:43 Lasix SLOW IVP 60 mg DAILY CHEO Administration Hydralazine HCl 10 mg 01/29/19 17:51 02/01/19 05:09 Apresoline SLOW IVP 10 mg Q4H PRN Administration SBP Greater Than 180 Sodium Chloride 1,000 mls @ 70 mls/hr 01/29/19 16:00 02/01/19 01:29 Normal Saline 0.9% IV 1,000 mls .[id number] CHEO Administration Ascorbic Acid 1,500 mg/ Sodium 53 mls @ 100 mls/hr 01/29/19 18:00 02/01/19 12 :24 Chloride IVPB 02/02/19 18:01 53 mls Q6HR CHEO Administration Levofloxacin 750 mg/ Device 150 mls @ 100 mls/hr 01/29/19 17:00 01/31/19 17: 05 IVPB 150 mls Q24HR CHEO Administration Thiamine HCl 200 mg/ Sodium 52 mls @ 100 mls/hr 01/29/19 21:00 02/01/19 09:15 Chloride IVPB 02/02/19 21:01 52 mls Q12HR CHEO Administration Fentanyl Citrate 2,000 mcg/ 100 mls @ 0 mls/hr 01/29/19 16:20 02/01/19 08:43 Sodium Chloride IV 02/28/19 16:20 100 mls INF CHEO Administration Protocol Per Protocol Vancomycin HCl 1.25 gm/ Sodium 250 mls @ 166.667 mls/hr 01/30/19 21:00 09:16 Chloride IVPB 250 mls Q12HR CHEO Administration Lorazepam 2 mg 01/29/19 16:20 01/30/19 14:35 Ativan SLOW IVP 02/28/19 16:20 2 mg Q1H PRN Administration Breakthrough agitation Magnesium Oxide 400 mg 02/01/19 09:00 02/01/19 08:43 Magnesium Oxide PO 400 mg BID CHEO Administration Pantoprazole Sodium 40 mg 01/30/19 09:00 02/01/19 08:44 Protonix IVP 40 mg DAILY CHEO Administration Potassium Chloride 40 meq 01/29/19 16:22 01/30/19 16:20 Klor-Con PER TUBE 40 meq ASDIR PRN Administration FOR SERUM K+ 2.5-3.5 Propofol 1,000 mg 01/29/19 16:20 02/01/19 12:24 Diprivan IV 02/28/19 16:20 1,000 mg INF PRN Administration TO ACHIEVE GOAL RASS Protocol Sodium Chloride 10 ml 01/30/19 09:00 02/01/19 08:44 Flush - Normal Saline IVF 10 ml Q12HR CHEO Administration - Exam General - other findings: sedated Eye: anicteric sclera ENT: normocephalic atraumatic ENT - other findings: ET and NG tubes in place Neck - other findings: short thick neck. Heart: RRR Respiratory - other findings: ventilator transmitted sound noted Extremities: 1+ LE edema Extremities - other findings: Right thigh erythema is worse Neurological: cranial nerve grossly intact Neurological - other findings: Sedated Hosp A/P (1) Streptococcal bacteremia Code(s): R78.81 - BACTEREMIA; B95.5 - UNSP STREPTOCOCCUS THE CAUSE OF DISEASES CLASSD ELSWHR Status: Acute (2) Acute respiratory failure with hypoxemia Code(s): J96.01 - ACUTE RESPIRATORY FAILURE WITH HYPOXIA Status: Acute (3) COPD exacerbation Code(s): J44.1 - CHRONIC OBSTRUCTIVE PULMONARY DISEASE W (ACUTE) EXACERBATION Status: Acute (4) CHF exacerbation Code(s): I50.9 - HEART FAILURE, UNSPECIFIED Status: Acute (5) Sepsis Code(s): A41.9 - SEPSIS, UNSPECIFIED ORGANISM Status: Acute (6) Cellulitis of right lower extremity Code(s): L03.115 - CELLULITIS OF RIGHT LOWER LIMB Status: Acute (7) Acute non-ST elevation myocardial infarction (NSTEMI) Code(s): I21.4 - NON-ST ELEVATION (NSTEMI) MYOCARDIAL INFARCTION Status: Acute (8) LBBB (left bundle branch block) Code(s): I44.7 - LEFT BUNDLE-BRANCH BLOCK, UNSPECIFIED Status: Acute (9) Hypothyroidism Code(s): E03.9 - HYPOTHYROIDISM, UNSPECIFIED Status: Acute (10) BHARGAV (acute kidney injury) Code(s): N17.9 - ACUTE KIDNEY FAILURE, UNSPECIFIED Status: Acute (11) Hypokalemia Code(s): E87.6 - HYPOKALEMIA Status: Acute (12) Hypomagnesemia Code(s): E83.42 - HYPOMAGNESEMIA Status: Acute (13) Streptococcus agalactiae infection Code(s): A49.1 - STREPTOCOCCAL INFECTION, UNSPECIFIED SITE Status: Acute - Plan Add clindamycin to Levaquin and vancomycin given worsening right leg cellulitiis Sedatives and mechanical ventilation as per Pulm/critical care Awaiting ECHO Monitor electrolytes and replete as needed. Continue other treatments. Tube feeding and other supportve care to continue
[2019-02-01] MEDS: Clindamycin/D5W 600 MG in Premix Bag 1 BAG IVPB SCH ×2 (14:21→21:44)
--- NOTE | 2019-02-01 17:45 | PRG ---
DATE OF SERVICE: 02/01/2019 SUBJECTIVE: Florencia Rodriguez remains mechanically ventilated. OBJECTIVE: VITAL SIGNS: Blood pressure 113/51, heart rate is in the 70s, respiratory rate is in the teens. LUNGS: Remarkable for distant breath sounds. HEART: Regular rhythm. ABDOMEN: Soft. EXTREMITIES: Without asymmetry or edema. NEUROLOGIC: grossly nonfocal. She is sedated for ventilation. LABORATORY DATA: White count 8.4, hemoglobin 8.9, platelets 82,000. Sodium 137, potassium 4, chloride 112, bicarbonate 22, BUN 14, creatinine 0.73. PH 7.32, CO2 of 46, PO2 of 82. Chest radiograph, essentially unchanged. IMPRESSION: 1. Hypoxic respiratory failure with mechanical ventilation. 2. Pneumonia with cystitis for non ST-segment elevated myocardial infarction. 3. Underlying obstructive lung disease. 4. Underlying cirrhosis. 5. Thrombocytopenia. 6. Obesity. We made some small ventilator changes, but she is not a candidate for extubation yet. CRITICAL CARE TIME: 30 minutes. Job ID: [id number]
[2019-02-02] MEDS: Propofol 1,000 MG/100 ML VIAL IV PRN ×3 (01:27→22:46)
[2019-02-02] MEDS: fentaNYL Citrate/PF 2,000 MCG in Sodium Chloride 0.9% 60 ML IV SCH (04:22)
[2019-02-02 04:29] LABS: #Eosinphils 0.1 thou/uL (0.0-0.7); #Lymphocytes 0.9 thou/uL (1.20-3.40); #Monocytes 0.7 thou/uL (0.11-0.59); %Basophils 0.4 % (0.0-1.0); %Eosinophils 0.9 % (0.0-10.0); %Lymphocytes 11.6 % (21.0-51.0); %Monocytes 9.4 % (0.0-10.0); %Neutrophils 77.6 % (42.0-75.0); Hemoglobin 9.1 g/dL (12.0-16.0); Mean Corpuscular HGB CONC 32.5 g/dL (32.0-36.0); Mean Corpuscular Hemoglobin 28.5 pg (27.0-31.0); Mean Corpuscular Volume 87.7 fL (78.0-98.0); Mean Platelet Volume 8.2 fL (7.4-10.4); Platelet Count 90 thou/uL (130-400); RBC Distribution Width 15.9 % (11.5-14.5); Red Blood Cell (RBC) Count 3.19 mill/uL (4.20-5.40); White Blood Cell (WBC) Count 7.7 thou/uL (4.8-10.8)
[2019-02-02 04:46] LABS: Anion Gap 9 mmol/L (10-20); BUN (Urea Nitrogen) 18 mg/dL (9.8-20.1); Calc. Creatinine Clearance 131 mL/min (70-130); Calcium 8.7 mg/dL (7.8-10.44); Carbon Dioxide 25 mmol/L (23-31); Chloride 109 mmol/L (98-107); Estimated GFR-MDRD 75; Glucose 218 mg/dL (83-110); Potassium 3.7 mmol/L (3.5-5.1); Sodium 139 mmol/L (136-145)
[2019-02-02] MEDS: Clindamycin/D5W 600 MG in Premix Bag 1 BAG IVPB SCH ×3 (05:47→21:22)
[2019-02-02 06:19] LABS: Actual Bicarbonate (HCO3a) 23.9 mEq/L (22-28); Base Excess (BEa) -2.1 mEq/L (-2.0 to +3.0); CO2 Tension 46.5 mmHg (35.0-45.0); Carboxyhemoglobin (COHb) 1.2 gm% (0.0-3.0); Hemoglobin (Hb) 9.2 g/dL (12.0-16.0); O2 Tension (PaO2) 91.5 mmHg (> 70.0); Potassium - ABG Lab 3.86 mmol/L (3.70-5.30); pH, Arterial 7.33 (7.35-7.45)
[2019-02-02 06:26] LABS: ALV-art Gradient 135.575 (0-20); Puncture Site RRA
--- NOTE | 2019-02-02 07:56 | RAD ---
EXAM: CHEST ONE VIEW HISTORY: Pneumonia. Follow-up evaluation. COMPARISON: 02/01/2019. FINDINGS: Lines and tubes remain stable in position. This exam is obtained with the patient in kyphotic positio antoni. Cardiac silhouette does appear enlarged. Pulmonary vasculature is mildly increased. Small bilateral pleural effusions are present greater on the right. Again noted is increase in bilateral pe rihilar interstitial and alveolar opacities which may related to pulmonary edema or infectious process. Chest is overall unchanged compared to prior study. IMPRESSION: Stable chest.
[2019-02-02] MEDS: Magnesium Oxide 400 MG TAB PO SCH ×2 (08:34→20:38)
[2019-02-02] MEDS: Furosemide 40 MG/4 ML VIAL SLOW IVP SCH ×2 (08:34→20:42)
[2019-02-02] MEDS: Pantoprazole 40 MG VIAL IVP SCH (08:34)
[2019-02-02 08:54] LABS: Vancomycin, Trough 15.4 ug/mL
--- NOTE | 2019-02-02 09:24 | PRG ---
DATE OF SERVICE: 02/02/2019 A 35 minutes of critical care time. SUBJECTIVE: The patient remains intubated on mechanical ventilation. OBJECTIVE: VITAL SIGNS: Her temperature is 98.7 with no fever overnight, pulse 90, blood pressure 137/62, and O2 saturation 100%. Intake for 24 hours 3832 and output 2295. HEENT: Unremarkable. NECK: No adenopathy or JVD. LUNGS: Diminished breath sounds at the bases. CARDIAC: S1 and S2. Regular. ABDOMEN: Soft and morbidly obese. EXTREMITIES: Edematous. LABORATORY DATA: A pH of 7.33, pCO2 of 46, pO2 of 91, SIMV rate 12, tidal volume 450, PEEP 5, pressure support of 10, and FiO2 of 40%. White blood cell count 7.7, hematocrit 28.0, and platelet count 90. Sodium 139, potassium 3.7, chloride 109, CO2 of 25, BUN 18, creatinine 0.7, and glucose 218. ASSESSMENT: 1. Acute respiratory failure requiring mechanical ventilation. 2. Pneumonia. 3. Volume overload. 4. Cirrhosis of the liver. 5. Thrombocytopenia, which has slowly improved. PLAN: 1. I am going to switch her over to pressure control ventilation because she is desiring higher tidal volumes, which she is currently being given. 2. Stop the vancomycin, since no MRSA has grown out. 3. She has an urticarial type rash on her legs, which I am not sure is due to drug reaction or this could be some type of yeast infection. 4. Continue enteral tube feeds. 5. Prognosis remains guarded. Job ID: [id number]
[2019-02-02] MEDS: Sodium Chloride 0.9% 1,000 ML IV SCH (12:05)
[2019-02-02] MEDS: Nystatin Powder 15 GM BOT TOP PRN ×2 (14:37→20:25)
[2019-02-02] MEDS ORDERED: Dextrose 50% Abboject 50 ML SYRINGE SLOW IVP PRN (18:21)
[2019-02-02] MEDS ORDERED: Dextrose 5% in Water 1,000 ML IV PRN (18:21)
[2019-02-02] MEDS ORDERED: HumaLOG 300 UNITS/3 ML VIAL SC PRN (18:21)
--- NOTE | 2019-02-02 18:24 | PDOC.HOSPP ---
- Subjective Encounter Date: 02/02/19 Encounter Time: 18:20 Subjective: f/u for resp failure on mech ventilation receiving Clindamycin/Levaquin for PNA , sepsis unable to wean. Receiving TF's with Vital HP at 60ml/h. Nursing reports LLE redness near knee/thigh. - Objective Vital Signs & Weight: Vital Signs (12 hours) Temp Pulse Resp BP Pulse Ox 02/02/19 17:00 98.7 F 02/02/19 16:00 16 02/02/19 15:05 85 02/02/19 14:00 12 02/02/19 12:57 99 166/65 H 02/02/19 12:00 99.3 F 12 02/02/19 10:36 91 155/70 H 02/02/19 10:00 14 02/02/19 08:24 97 02/02/19 08:00 98.3 F 14 100 02/02/19 07:30 102 H Weight Admit Weight 268 lb Weight 269 lb 10.005 oz Most Recent Monitor Data Heart Rate from ECG 77 NIBP 136/50 NIBP BP-Mean 78 Respiration from ECG 17 SpO2 100 I&O: 02/01/19 02/02/19 02/03/19 06:59 06:59 06:59 Intake Total 3072 3832 110 Output Total 935 2295 3015 Balance 2137 1537 -2905 Result Diagrams: 02/02/19 04:10 02/02/19 04:10 Additional Labs: Microbiology 01/29/19 13:38 Central Line - Right external jugular vein Blood Culture - Final Streptococcus agalactiae Gp. B 01/29/19 12:50 Urine vela catheter Urine Culture - Final Enterococcus faecalis 01/29/19 14:23 Central Line - Right external jugular vein Blood Culture - Preliminary NO GROWTH AT 48 HOURS Laboratory Tests 01/30/19 01/30/19 01/31/19 04:30 20:11 04:09 Hgb 9.3 L 9.0 L Plt Count 68 L 71 L Vancomycin Trough 9.4 02/01/19 02/01/19 02/02/19 04:30 08:02 08:09 Hgb 8.9 L Plt Count 82 L Vancomycin Trough 14.8 15.4 Radiology Reviewed by me: Yes (PCXR - perihilar infiltrates, lines/tube in place ) EKG Reviewed by me: Yes (Tele - SR) Hospitalist ROS - Medication Medications: Active Medications Generic Name Dose Route Start Last Admin Trade Name Freq PRN Reason Stop Dose Admin Albuterol/Ipratropium 3 ml 01/29/19 18:30 02/02/19 15:04 Duoneb NEB 3 ml [id number] CHEO Administration Furosemide 60 mg 02/02/19 09:00 02/02/19 08:34 Lasix SLOW IVP 60 mg BID CHEO Administration Hydralazine HCl 10 mg 01/29/19 17:51 02/01/19 05:09 Apresoline SLOW IVP 10 mg Q4H PRN Administration SBP Greater Than 180 Levofloxacin 750 mg/ Device 150 mls @ 100 mls/hr 01/29/19 17:00 02/02/19 17: 06 IVPB 150 mls Q24HR CHEO Administration Fentanyl Citrate 2,000 mcg/ 100 mls @ 0 mls/hr 01/29/19 16:20 02/02/19 04:22 Sodium Chloride IV 02/28/19 16:20 100 mls INF CHEO Administration Protocol Per Protocol Clindamycin Phosphate/Dextrose 50 mls @ 100 mls/hr 02/01/19 14:00 02/02/19 14 :18 600 mg/ Device IVPB 50 mls Q8HR CHEO Administration Lorazepam 2 mg 01/29/19 16:20 01/30/19 14:35 Ativan SLOW IVP 02/28/19 16:20 2 mg Q1H PRN Administration Breakthrough agitation Magnesium Oxide 400 mg 02/01/19 09:00 02/02/19 08:34 Magnesium Oxide PO 400 mg BID CHEO Administration Nystatin 1 gm 02/02/19 07:59 02/02/19 14:37 Mycostatin Powder TOP 1 applic BID PRN Administration Topical Irritations Potassium Chloride 40 meq 01/29/19 16:22 01/30/19 16:20 Klor-Con PER TUBE 40 meq ASDIR PRN Administration FOR SERUM K+ 2.5-3.5 Propofol 1,000 mg 01/29/19 16:20 02/02/19 11:02 Diprivan IV 02/28/19 16:20 1,000 mg INF PRN Administration TO ACHIEVE GOAL RASS Protocol Sodium Chloride 10 ml 01/30/19 09:00 02/02/19 08:34 Flush - Normal Saline IVF 10 ml Q12HR CHEO Administration - Exam General - other findings: sedate on mech ventilation Eye: PERRL ENT: normocephalic atraumatic, no oropharyngeal lesions ENT - other findings: ETT in place Neck: supple, symmetric, no JVD, no thyromegaly Heart: RRR, no murmur, no gallops, no rubs, normal peripheral pulses Respiratory: no wheezes, no tachypnea Respiratory - other findings: diminished in bases Gastrointestinal: soft, non-distended, normal bowel sounds, no palpable masses Gastrointestinal - other findings: obese, Vela in place Extremities: 2+ LE edema Extremities - other findings: + erythema LLE in distal thigh, groin Skin: normal turgor Neurological - other findings: sedate on mech ventilation Hosp A/P (1) Sepsis Code(s): A41.9 - SEPSIS, UNSPECIFIED ORGANISM Status: Acute Plan: Continue Levaquin/Clindamycin for streptococcal coverage (2) Acute respiratory failure with hypoxemia Code(s): J96.01 - ACUTE RESPIRATORY FAILURE WITH HYPOXIA Status: Acute Plan: continue mech ventilation, slow wean as clinically indicated (3) BHARGAV (acute kidney injury) Code(s): N17.9 - ACUTE KIDNEY FAILURE, UNSPECIFIED Status: Acute Plan: Resolving, avoid nephrotoxic meds and limit contrast exposure (4) Cellulitis of right lower extremity Code(s): L03.115 - CELLULITIS OF RIGHT LOWER LIMB Status: Acute Plan: Suspected, check dopplers to r/o DVT, monitor clinically (5) Streptococcal bacteremia Code(s): R78.81 - BACTEREMIA; B95.5 - UNSP STREPTOCOCCUS THE CAUSE OF DISEASES CLASSD ELSWHR Status: Acute Plan: See above (6) Acute non-ST elevation myocardial infarction (NSTEMI) Code(s): I21.4 - NON-ST ELEVATION (NSTEMI) MYOCARDIAL INFARCTION Status: Acute - Plan continue antibiotics, certified social workers in health care, respiratory therapy continue critical support Mech ventilation weaning as clinically indicated Continue Levaquin/Clindamycin Check BLE dopplers to r/o DVT Nutritional support with Vital HP @ 60ml/h Add ISS, serial accuchecks AM lab: BMP, CBC
[2019-02-02] MEDS ORDERED: Enoxaparin Sodium 40 MG/0.4 ML SYRINGE SC SCH (18:45)
--- NOTE | 2019-02-02 22:48 | ULT ---
US Venous Doppler Bilat History: Pain and edema Comparison: None. Findings: Real-time grayscale, color, and spectral analysis of the bilateral lower extremity venous s ystem was performed. The common femoral, femoral, proximal portions greater saphenous and deep femoral veins as well as the popliteal posterior tibial veins were interrogated. Partially occlusive thrombus left posterior tibial vein. Remainder of the veins are patent with moris l flow, augmentation, and compression. Impression: Partially occlusive thrombus left posterior tibial vein. The technologist notified of the nurse Ramsey at time of exam.
[2019-02-02] MEDS: HumaLOG 300 UNITS/3 ML VIAL SC PRN (23:50)
[2019-02-03 04:23] LABS: #Eosinphils 0.1 thou/uL (0.0-0.7); #Lymphocytes 0.8 thou/uL (1.20-3.40); #Monocytes 0.7 thou/uL (0.11-0.59); #Neutrophils 4.8 thou/uL (1.40-6.50); %Basophils 0.2 % (0.0-1.0); %Eosinophils 2.3 % (0.0-10.0); %Lymphocytes 12.4 % (21.0-51.0); %Monocytes 10.7 % (0.0-10.0); %Neutrophils 74.4 % (42.0-75.0); Hemoglobin 8.8 g/dL (12.0-16.0); Mean Corpuscular HGB CONC 32.3 g/dL (32.0-36.0); Mean Corpuscular Hemoglobin 28.3 pg (27.0-31.0); Mean Corpuscular Volume 87.6 fL (78.0-98.0); Mean Platelet Volume 8.4 fL (7.4-10.4); Platelet Count 90 thou/uL (130-400); RBC Distribution Width 15.9 % (11.5-14.5); Red Blood Cell (RBC) Count 3.12 mill/uL (4.20-5.40); White Blood Cell (WBC) Count 6.4 thou/uL (4.8-10.8)
[2019-02-03 04:33] LABS: Anion Gap 8 mmol/L (10-20); BUN (Urea Nitrogen) 21 mg/dL (9.8-20.1); Calc. Creatinine Clearance 129 mL/min (70-130); Calcium 8.9 mg/dL (7.8-10.44); Carbon Dioxide 31 mmol/L (23-31); Chloride 103 mmol/L (98-107); Estimated GFR-MDRD 74; Glucose 277 mg/dL (83-110); Potassium 3.4 mmol/L (3.5-5.1); Sodium 139 mmol/L (136-145)
[2019-02-03] MEDS: Clindamycin/D5W 600 MG in Premix Bag 1 BAG IVPB SCH (05:33)
[2019-02-03] MEDS: HumaLOG 300 UNITS/3 ML VIAL SC PRN ×3 (05:49→16:16)
[2019-02-03] MEDS: Potassium Chloride 40 MEQ in Premix Bag 1 BAG IVPB PRN (06:24)
[2019-02-03 07:00] LABS: Actual Bicarbonate (HCO3a) 29.6 mEq/L (22-28); Base Excess (BEa) 4.2 mEq/L (-2.0 to +3.0); CO2 Tension 49.3 mmHg (35.0-45.0); Calcium, Ionized 1.26 mmol/L (1.12-1.30); Carboxyhemoglobin (COHb) 1.3 gm% (0.0-3.0); Hemoglobin (Hb) 8.8 g/dL (12.0-16.0); Potassium - ABG Lab 3.81 mmol/L (3.70-5.30)
[2019-02-03 07:08] LABS: Puncture Site RR
[2019-02-03 07:09] LABS: ALV-art Gradient 115.575 (0-20)
[2019-02-03] MEDS: Furosemide 40 MG/4 ML VIAL SLOW IVP SCH ×3 (07:57→20:42)
[2019-02-03] MEDS: Magnesium Oxide 400 MG TAB PO SCH ×2 (08:02→20:42)
[2019-02-03] MEDS: Pantoprazole 40 MG VIAL IVP SCH (08:42)
[2019-02-03] MEDS: Propofol 1,000 MG/100 ML VIAL IV PRN ×2 (09:00→20:42)
[2019-02-03] MEDS ORDERED: Enoxaparin Sodium 40 MG/0.4 ML SYRINGE SC SCH (09:00)
--- NOTE | 2019-02-03 10:03 | RAD ---
CHEST ONE VIE: HISTORY: Follow up pneumonia. COMPARISON: 02/02/2019 FINDINGS: Life support tubes remain in place with cardiomegaly and bilateral pleural effusions and vascular con gestion. IMPRESSION: Overall stable chest. Continue short term followup for clearing. POS: TPC
[2019-02-03] MEDS: Apixaban 5 MG TAB PO SCH ×2 (10:04→20:42)
[2019-02-03] MEDS: NPH, Human Insulin Isophane 300 UNIT/3 ML VIAL SC SCH ×2 (10:04→20:43)
--- NOTE | 2019-02-03 10:16 | PRG ---
DATE OF SERVICE: 02/03/2019 TIME SPENT: Thirty five minutes of critical care time. SUBJECTIVE: The patient remains intubated on mechanical ventilation. There has been no acute changes. She will wake up to voice. OBJECTIVE: VITAL SIGNS: Temperature is 99.1, pulse 80, blood pressure 103/66. A 24-hour intake 2564, output 4540. Weight 269 pounds. HEENT: She has conjunctival edema. NECK: No adenopathy or JVD. LUNGS: Diminished breath sounds at the bases. CARDIAC: S1 and S2, regular. ABDOMEN: Obese, soft, and nontender. EXTREMITIES: No edema. LABORATORY DATA: Sodium 139, potassium 3.4, chloride 103, CO2 of 31, BUN 21, creatinine 0.7, glucose 277. White blood cell count 6.4, hematocrit 27.4, and platelet count 90. A pH of 7.40, pCO2 of 49, PO2 of 108. A Doppler of the lower extremities demonstrated a partially occlusive thrombus of the left posterior tibial vein. Her x-ray shows a rotated film, endotracheal tube looks to be in good position. She has bilateral effusions. ASSESSMENT: 1. Acute respiratory failure requiring mechanical ventilation. 2. Deep venous thrombosis. 3. Cirrhosis of the liver. 4. Mild thrombocytopenia. 5. Pneumonia. 6. Developing prerenal azotemia. PLAN: 1. I will go ahead and switch her Lovenox to Eliquis given that she has DVT and the mild thrombocytopenia. I am choosing to use a lower dose of Eliquis in this situation. 2. Continue IV Levaquin and discontinue the clindamycin. 3. Decrease the dose of Lasix. 4. Not weanable from mechanical ventilation at this time. 5. We will follow. Job ID: [id number]
[2019-02-03] MEDS: hydrALAZINE 20 MG/ML VIAL SLOW IVP PRN ×2 (17:38→21:02)
--- NOTE | 2019-02-03 18:11 | PDOC.HOSPP ---
- Subjective Encounter Date: 02/03/19 Encounter Time: 16:40 Subjective: f/u for sepsis, resp failure on mech ventilation and unable to wean. Receiving Levaquin/Lasix/Duonebs. TF's with Vital HP @ 60ml/h - Objective Vital Signs & Weight: Vital Signs (12 hours) Temp Pulse Resp BP 02/03/19 16:00 99.2 F 14 02/03/19 14:54 91 186/75 H 02/03/19 14:00 12 02/03/19 13:05 72 133/56 L 02/03/19 12:00 12 02/03/19 11:00 98.7 F 02/03/19 10:48 78 150/70 H 02/03/19 10:00 12 02/03/19 08:06 77 149/73 H 02/03/19 08:00 16 02/03/19 07:00 99.1 F Weight Admit Weight 268 lb Weight 269 lb 10.005 oz Most Recent Monitor Data Heart Rate from ECG 74 NIBP 171/53 NIBP BP-Mean 92 Respiration from ECG 12 SpO2 100 I&O: 02/02/19 02/03/19 02/04/19 06:59 06:59 06:59 Intake Total 3832 2564.6 1119 Output Total 2295 4540 2105 Balance 1537 -1975.4 -986 Result Diagrams: 02/03/19 03:20 02/03/19 03:20 Additional Labs: Accuchecks 02/03/19 02/03/19 02/03/19 16:18 11:30 05:50 POC Glucose 230 H 318 H 305 H 02/02/19 23:49 POC Glucose 245 H Microbiology 01/29/19 13:38 Central Line - Right external jugular vein Blood Culture - Final Streptococcus agalactiae Gp. B 01/29/19 12:50 Urine vela catheter Urine Culture - Final Enterococcus faecalis 01/29/19 14:23 Central Line - Right external jugular vein Blood Culture - Preliminary NO GROWTH AT 48 HOURS Laboratory Tests 01/30/19 01/30/19 01/31/19 04:30 20:11 04:09 Hgb 9.3 L 9.0 L Plt Count 68 L 71 L Vancomycin Trough 9.4 02/01/19 02/01/19 02/02/19 04:30 08:02 08:09 Hgb 8.9 L Plt Count 82 L Vancomycin Trough 14.8 15.4 Radiology Reviewed by me: Yes (PCXR - bilat effusions, lines/tubes in position; Venogram - + DVT LLE) EKG Reviewed by me: Yes (Tele - SR) Hospitalist ROS - Medication Medications: Active Medications Generic Name Dose Route Start Last Admin Trade Name Freq PRN Reason Stop Dose Admin Albuterol/Ipratropium 3 ml 01/29/19 18:30 02/03/19 14:54 Duoneb NEB 3 ml [id number] CHEO Administration Apixaban 5 mg 02/03/19 09:00 02/03/19 10:04 Eliquis PO 5 mg BID CHEO Administration Furosemide 40 mg 02/03/19 08:54 02/03/19 10:03 Lasix SLOW IVP Not Given BID CHEO Hydralazine HCl 10 mg 01/29/19 17:51 02/03/19 17:38 Apresoline SLOW IVP 10 mg Q4H PRN Administration SBP Greater Than 180 Levofloxacin 750 mg/ Device 150 mls @ 100 mls/hr 01/29/19 17:00 02/03/19 17: 15 IVPB 150 mls Q24HR CHEO Administration Fentanyl Citrate 2,000 mcg/ 100 mls @ 0 mls/hr 01/29/19 16:20 02/02/19 04:22 Sodium Chloride IV 02/28/19 16:20 100 mls INF CHEO Administration Protocol Per Protocol Potassium Chloride 40 meq/ 100 mls @ 50 mls/hr 01/29/19 16:22 02/03/19 06:24 Device IVPB 100 mls ASDIR PRN Administration FOR SERUM K+ 2.5 - 3.5 Insulin Human Lispro 0 units 02/02/19 18:21 02/03/19 16:16 Humalog SC 4 unit .MODERATE SLIDING SC PRN Administration Moderate Correctional Scale Insulin Human NPH 15 unit 02/03/19 09:00 02/03/19 10:04 Humulin N SC 15 unit BID CHEO Administration Lorazepam 2 mg 01/29/19 16:20 01/30/19 14:35 Ativan SLOW IVP 02/28/19 16:20 2 mg Q1H PRN Administration Breakthrough agitation Magnesium Oxide 400 mg 02/01/19 09:00 02/03/19 08:02 Magnesium Oxide PO 400 mg BID CHEO Administration Nystatin 1 gm 02/02/19 07:59 02/02/19 20:25 Mycostatin Powder TOP 1 applic BID PRN Administration Topical Irritations Pantoprazole Sodium 40 mg 02/03/19 09:00 02/03/19 08:42 Protonix IVP 40 mg DAILY CHEO Administration Potassium Chloride 40 meq 01/29/19 16:22 01/30/19 16:20 Klor-Con PER TUBE 40 meq ASDIR PRN Administration FOR SERUM K+ 2.5-3.5 Propofol 1,000 mg 01/29/19 16:20 02/03/19 09:00 Diprivan IV 02/28/19 16:20 1,000 mg INF PRN Administration TO ACHIEVE GOAL RASS Protocol Sodium Chloride 10 ml 01/30/19 09:00 02/03/19 08:42 Flush - Normal Saline IVF 10 ml Q12HR CHEO Administration - Exam General - other findings: sedate on mech ventilation ENT: normocephalic atraumatic, no oropharyngeal lesions ENT - other findings: ETT in place Neck: supple, symmetric, no JVD, no thyromegaly Heart: RRR, no gallops, no rubs, normal peripheral pulses Respiratory: no wheezes, no ronchi Respiratory - other findings: diminished in bases bilat Gastrointestinal: soft, non-tender, non-distended, normal bowel sounds Gastrointestinal - other findings: obese Extremities: 1+ LE edema Skin: normal turgor Neurological - other findings: sedate on mech vent Psychiatric: somnolent Hosp A/P (1) Sepsis Code(s): A41.9 - SEPSIS, UNSPECIFIED ORGANISM Status: Acute Plan: Enterococcus UTI, Group B strep on 1 of 2 blood cx, currently on Levaquin IV (2) Acute respiratory failure with hypoxemia Code(s): J96.01 - ACUTE RESPIRATORY FAILURE WITH HYPOXIA Status: Acute Plan: Persistent, continue SIMV, unable to wean (3) BHARGAV (acute kidney injury) Code(s): N17.9 - ACUTE KIDNEY FAILURE, UNSPECIFIED Status: Acute Plan: Resolved, avoid nephrotoxic meds and limit contrast (4) Cellulitis of right lower extremity Code(s): L03.115 - CELLULITIS OF RIGHT LOWER LIMB Status: Acute (5) Streptococcal bacteremia Code(s): R78.81 - BACTEREMIA; B95.5 - UNSP STREPTOCOCCUS THE CAUSE OF DISEASES CLASSD ELSWHR Status: Acute Plan: See above (6) Acute non-ST elevation myocardial infarction (NSTEMI) Code(s): I21.4 - NON-ST ELEVATION (NSTEMI) MYOCARDIAL INFARCTION Status: Acute (7) Deep vein thrombosis (DVT) of distal vein of left lower extremity Code(s): I82.4Z2 - AC EMBLSM AND THOMBOS UNSP DEEP VEINS OF LEFT DIST LOW EXTRM Status: Acute Plan: Continue Eliquis - Plan continue antibiotics, social services specialist, respiratory therapy continue critical support Mec ventilation weaning as clinically indicated Continue Levaquin Continue Eliquis 5mg BID Nutritional support with Vital HP @ 60ml/h Add ISS, serial accuchecks Consult Palliative care team AM lab: BMP, CBC
[2019-02-04] MEDS: HumaLOG 300 UNITS/3 ML VIAL SC PRN ×4 (00:53→18:16)
[2019-02-04] MEDS: Propofol 1,000 MG/100 ML VIAL IV PRN ×4 (03:12→22:40)
[2019-02-04 04:51] LABS: #Eosinphils 0.2 thou/uL (0.0-0.7); #Lymphocytes 0.7 thou/uL (1.20-3.40); #Monocytes 0.5 thou/uL (0.11-0.59); %Basophils 0.4 % (0.0-1.0); %Eosinophils 3.3 % (0.0-10.0); %Lymphocytes 10.2 % (21.0-51.0); %Monocytes 7.7 % (0.0-10.0); %Neutrophils 78.5 % (42.0-75.0); Hemoglobin 8.7 g/dL (12.0-16.0); Mean Corpuscular HGB CONC 31.9 g/dL (32.0-36.0); Mean Corpuscular Volume 87.9 fL (78.0-98.0); Mean Platelet Volume 7.9 fL (7.4-10.4); Platelet Count 88 thou/uL (130-400); RBC Distribution Width 15.9 % (11.5-14.5); Red Blood Cell (RBC) Count 3.11 mill/uL (4.20-5.40); White Blood Cell (WBC) Count 6.4 thou/uL (4.8-10.8)
[2019-02-04 05:05] LABS: Anion Gap 9 mmol/L (10-20); BUN (Urea Nitrogen) 25 mg/dL (9.8-20.1); Calc. Creatinine Clearance 129 mL/min (70-130); Calcium 9.2 mg/dL (7.8-10.44); Carbon Dioxide 32 mmol/L (23-31); Chloride 102 mmol/L (98-107); Estimated GFR-MDRD 74; Glucose 301 mg/dL (83-110); Potassium 3.8 mmol/L (3.5-5.1); Sodium 139 mmol/L (136-145)
--- NOTE | 2019-02-04 07:58 | RAD ---
CHEST 1 VIEW: COMPARISON: 02/03/2019. HISTORY: Pneumonia. FINDINGS: Redemonstration of endotracheal tube, nasogastric tube, right-sided central venous catheter, and over lying cardiac specialist leads. Heart is enlarged and the pulmonary vessels are prominent. There are b ilateral pleural effusions with adjacent parenchymal change. No pneumothorax. IMPRESSION: Worsening congestive heart failure. POS: [facility]
[2019-02-04] MEDS: Apixaban 5 MG TAB PO SCH ×2 (08:40→20:37)
[2019-02-04] MEDS: Furosemide 40 MG/4 ML VIAL SLOW IVP SCH (08:40)
[2019-02-04] MEDS: Magnesium Oxide 400 MG TAB PO SCH ×2 (08:40→20:37)
[2019-02-04] MEDS: Pantoprazole 40 MG VIAL IVP SCH (08:40)
[2019-02-04] MEDS: acetaZOLAMIDE Sodium 250 MG in Sodium Chloride 0.9% 50 ML IVPB SCH ×2 (08:52→20:49)
--- NOTE | 2019-02-04 09:27 | PRG ---
DATE OF SERVICE: 02/04/2019 35 minutes of critical care time. SUBJECTIVE: She remains intubated on mechanical ventilation. She will wake up once sedation is lessened. OBJECTIVE: VITAL SIGNS: Temperature is 99.6, pulse 75, blood pressure 158/66, O2 saturation 97%. She is currently on SIMV pressure control ventilation. HEENT: Exam is unremarkable. NECK: No adenopathy or JVD. LUNGS: Coarse breath sounds that are diminished at the bases. CARDIAC: S1, S2. Regular. ABDOMEN: Obese, soft, nontender. EXTREMITIES: Edematous. LABORATORY DATA: Sodium 139, potassium 3.8, chloride 102, CO2 of 32, BUN 25, creatinine 0.7, glucose 301. White blood cell count 6.4, hematocrit 27.3, and platelet count 88. ABG pending. IMAGING STUDIES: Chest x-ray demonstrates bilateral pulmonary edema/effusions. ASSESSMENT: 1. Acute hypoxic respiratory failure, requiring mechanical ventilation. 2. Non ST-segment elevation myocardial infarction. 3. Deep venous thrombosis. 4. Cirrhosis of liver. 5. Mild thrombocytopenia. 6. Pneumonia. PLAN: 1. I will go ahead and drop her Lasix dose and add acetazolamide as this patient is developing a metabolic alkalosis, which may be deleterious in terms of weaning. 2. I do think she needs a significant more amount of fluid removed before being able to be weaned. 3. Continue enteral tube feedings and double the dose of NPH insulin. 4. Continue antibiotics for full 7 days. Her last day should be tomorrow. 5. Continue Eliquis for treatment of the DVT. Job ID: [id number]
[2019-02-04] MEDS: NPH, Human Insulin Isophane 300 UNIT/3 ML VIAL SC SCH ×2 (10:11→20:38)
--- NOTE | 2019-02-04 15:45 | PDOC.PALCO ---
Palliative Care Consult - Consult Details Requesting Physician: Dr Vidales Reason for Consult: goals of care, advance directives assistance, family support Family Members Present: None - Pertinent HPI Patient had back pain and difficultly breathing at home, EMS was called. On arrival patient was found to be cyanotic and hypoxic and intubated in the home setting prior to transport. In route patient was febrile and tachycardic. Admitted to the CCU for management. - Pertinent PMH COPD, Morbid Obesity, DM II, Hypertension, Hypothyroid - Social History Smoking Status: Unknown if ever smoked Alcohol Use: none Drug Use History: none Living Situation: independent - Medications MAR Reviewed: Yes - Allergies Allergies/Adverse Reactions: Allergies Allergy/AdvReac Type Severity Reaction Status Date / Time codeine Allergy hives, Verified 03/29/17 10:01 itching, dyspnea Penicillins Allergy hives, Verified 03/29/17 10:01 dyspnea povidone-iodine Allergy blisters Verified 03/29/17 10:01 [From Betadine] soap [From Betadine] Allergy blisters Verified 03/29/17 10:01 Sulfa (Sulfonamide Allergy Verified 03/29/17 10:01 Antibiotics) - Subjective Intubated, mechanical ventilation, non responsive. ROS: Unable to obtain as patient non responsive - Objective Vital Signs: Vital Signs - Most Recent Temp Pulse Resp BP Pulse Ox 98.2 F 72 12 150/62 H 96 02/04/19 12:00 02/04/19 15:03 02/04/19 14:00 02/04/19 15:03 02/04/19 08:00 Palliative Performance Scale: 20 - Physical Exam Deviation from normal: Intubated, sedated, HEENT: moist MMs Deviation from normal: Mechanical ventilation Cardiovascular: RRR Deviation from normal: faint heart sounds Deviation from normal: obtunded, soft Musculoskeletal: pulses present, edema present Deviation from normal: intubated, non responsive Deviation from normal: mild weeping left lower ext, pallor - Problem List (1) Palliative care encounter Code(s): Z51.5 - ENCOUNTER FOR PALLIATIVE CARE Current Visit: Yes Status: Acute (2) Acute respiratory failure with hypoxemia Code(s): J96.01 - ACUTE RESPIRATORY FAILURE WITH HYPOXIA Current Visit: Yes Status: Acute (3) CHF exacerbation Code(s): I50.9 - HEART FAILURE, UNSPECIFIED Current Visit: Yes Status: Acute (4) COPD exacerbation Code(s): J44.1 - CHRONIC OBSTRUCTIVE PULMONARY DISEASE W (ACUTE) EXACERBATION Current Visit: Yes Status: Acute (5) Sepsis Code(s): A41.9 - SEPSIS, UNSPECIFIED ORGANISM Current Visit: Yes Status: Acute - Plan/Recommendations Plan: Intubated, mechanical ventilation. Lindsey Augustine RNfloorworker lasting arranged family meeting for tomorrow noon with patient son. Will discuss patient status, resuscitation status, and goals of care in relation to patient current health crisis. Dr Vidales notified of meeting. [30] minutes spent on this encounter with >50% of the time in counseling and coordination of care. Thank you for this very appropriate consult.
--- NOTE | 2019-02-04 16:17 | PDOC.HOSPP ---
- Subjective Encounter Date: 02/04/19 Encounter Time: 16:10 Subjective: f/u for resp failure on mech vent unable to wean. Receiving - Objective Vital Signs & Weight: Vital Signs (12 hours) Temp Pulse Resp BP Pulse Ox 02/04/19 15:03 72 150/62 H 02/04/19 14:00 12 02/04/19 13:11 71 02/04/19 12:00 98.2 F 13 02/04/19 10:48 71 151/61 H 02/04/19 10:00 14 02/04/19 09:29 68 02/04/19 08:00 98.6 F 12 96 02/04/19 07:21 70 157/77 H 02/04/19 06:00 14 Weight Admit Weight 268 lb Weight 269 lb 10.005 oz Most Recent Monitor Data Heart Rate from ECG 71 NIBP 150/62 NIBP BP-Mean 91 Respiration from ECG 13 SpO2 98 I&O: 02/03/19 02/04/19 02/05/19 06:59 06:59 06:59 Intake Total 2564.6 2321 100 Output Total 4540 3260 [address] [address].4 -939 -825 Result Diagrams: 02/04/19 04:34 02/04/19 04:34 Additional Labs: Accuchecks 02/04/19 02/04/19 02/04/19 12:11 04:39 00:54 POC Glucose 268 H 290 H 273 H 02/03/19 02/03/19 20:48 16:18 POC Glucose 226 H 230 H Microbiology 01/29/19 13:38 Central Line - Right external jugular vein Blood Culture - Final Streptococcus agalactiae Gp. B 01/29/19 12:50 Urine vela catheter Urine Culture - Final Enterococcus faecalis 01/29/19 14:23 Central Line - Right external jugular vein Blood Culture - Preliminary NO GROWTH AT 48 HOURS Laboratory Tests 01/30/19 01/30/19 01/31/19 04:30 20:11 04:09 Hgb 9.3 L 9.0 L Plt Count 68 L 71 L Vancomycin Trough 9.4 02/01/19 02/01/19 02/02/19 04:30 08:02 08:09 Hgb 8.9 L Plt Count 82 L Vancomycin Trough 14.8 15.4 Radiology Reviewed by me: Yes (PCXR - pulm edema, lines/tubes in position) EKG Reviewed by me: Yes (Tele - SR) Hospitalist ROS - Medication Medications: Active Medications Generic Name Dose Route Start Last Admin Trade Name Freq PRN Reason Stop Dose Admin Albuterol/Ipratropium 3 ml 01/29/19 18:30 02/04/19 15:03 Duoneb NEB 3 ml [id number] CHEO Administration Apixaban 5 mg 02/03/19 09:00 02/04/19 08:40 Eliquis PO 5 mg BID CHEO Administration Furosemide 40 mg 02/04/19 09:00 02/04/19 08:40 Lasix SLOW IVP 40 mg DAILY CHEO Administration Hydralazine HCl 10 mg 01/29/19 17:51 02/03/19 21:02 Apresoline SLOW IVP 10 mg Q4H PRN Administration SBP Greater Than 180 Levofloxacin 750 mg/ Device 150 mls @ 100 mls/hr 01/29/19 17:00 02/03/19 17: 15 IVPB 150 mls Q24HR CHEO Administration Fentanyl Citrate 2,000 mcg/ 100 mls @ 0 mls/hr 01/29/19 16:20 02/02/19 04:22 Sodium Chloride IV 02/28/19 16:20 100 mls INF CHEO Administration Protocol Per Protocol Potassium Chloride 40 meq/ 100 mls @ 50 mls/hr 01/29/19 16:22 02/03/19 06:24 Device IVPB 100 mls ASDIR PRN Administration FOR SERUM K+ 2.5 - 3.5 Acetazolamide Sodium 250 mg/ 50 mls @ 100 mls/hr 02/04/19 09:00 02/04/19 08: 52 Sodium Chloride IVPB 50 mls BID CHEO Administration Insulin Human Lispro 0 units 02/02/19 18:21 02/04/19 13:05 Humalog SC 6 unit .MODERATE SLIDING SC PRN Administration Moderate Correctional Scale Insulin Human Lispro 0 units 02/02/19 18:21 02/03/19 20:46 Humalog SC 2 unit .BEDTIME SLIDING SC PRN Administration Bedtime Correctional Scale Insulin Human NPH 30 unit 02/04/19 07:59 02/04/19 10:11 Humulin N SC 30 unit BID CHEO Administration Lorazepam 2 mg 01/29/19 16:20 01/30/19 14:35 Ativan SLOW IVP 02/28/19 16:20 2 mg Q1H PRN Administration Breakthrough agitation Magnesium Oxide 400 mg 02/01/19 09:00 02/04/19 08:40 Magnesium Oxide PO 400 mg BID CHEO Administration Nystatin 1 gm 02/02/19 07:59 02/02/19 20:25 Mycostatin Powder TOP 1 applic BID PRN Administration Topical Irritations Pantoprazole Sodium 40 mg 02/03/19 09:00 02/04/19 08:40 Protonix IVP 40 mg DAILY CHEO Administration Potassium Chloride 40 meq 01/29/19 16:22 01/30/19 16:20 Klor-Con PER TUBE 40 meq ASDIR PRN Administration FOR SERUM K+ 2.5-3.5 Propofol 1,000 mg 01/29/19 16:20 02/04/19 09:01 Diprivan IV 02/28/19 16:20 1,000 mg INF PRN Administration TO ACHIEVE GOAL RASS Protocol Sodium Chloride 10 ml 01/30/19 09:00 02/04/19 08:41 Flush - Normal Saline IVF 10 ml Q12HR CHEO Administration - Exam General - other findings: sedate on mech vent ENT: normocephalic atraumatic, no oropharyngeal lesions ENT - other findings: ETT in place Neck: supple, symmetric, no JVD, no thyromegaly Heart: RRR, no murmur, no gallops, no rubs, normal peripheral pulses Respiratory: rales, rhonchi Respiratory - other findings: diminished bilat Gastrointestinal: soft, non-tender, non-distended, normal bowel sounds Extremities: 2+ LE edema Extremities - other findings: RLE erythema of thigh/posterior knee Skin: normal turgor Neurological - other findings: somnolent, sedate Hosp A/P (1) Sepsis Code(s): A41.9 - SEPSIS, UNSPECIFIED ORGANISM Status: Acute Plan: Bacteremia with strep spp on Levaquin, apparent RLE cellulitis developing (2) Acute respiratory failure with hypoxemia Code(s): J96.01 - ACUTE RESPIRATORY FAILURE WITH HYPOXIA Status: Acute Plan: SIMV, continue pulmonary support, not weanable (3) BHARGAV (acute kidney injury) Code(s): N17.9 - ACUTE KIDNEY FAILURE, UNSPECIFIED Status: Acute Plan: Resolved (4) Cellulitis of right lower extremity Code(s): L03.115 - CELLULITIS OF RIGHT LOWER LIMB Status: Acute Plan: Add Vancomycin 1gm IV q12h, serial monitoring, r/o for DVT of RLE (5) Streptococcal bacteremia Code(s): R78.81 - BACTEREMIA; B95.5 - UNSP STREPTOCOCCUS THE CAUSE OF DISEASES CLASSD ELSWHR Status: Acute Plan: See above (6) Acute non-ST elevation myocardial infarction (NSTEMI) Code(s): I21.4 - NON-ST ELEVATION (NSTEMI) MYOCARDIAL INFARCTION Status: Acute (7) Deep vein thrombosis (DVT) of distal vein of left lower extremity Code(s): I82.4Z2 - AC EMBLSM AND THOMBOS UNSP DEEP VEINS OF LEFT DIST LOW EXTRM Status: Acute Plan: Continue Eliquis - Plan continue antibiotics, health and social care teacher, respiratory therapy continue critical support Unable to wean mech ventilation currently, may need to consider Trach Continue Levaquin Continue Eliquis 5mg BID Nutritional support with Vital HP @ 60ml/h Add ISS, serial accuchecks Family meeting with Palliative care 02/05/19 Add Vancomycin 1gm IV q12h AM lab: BMP, CBC
[2019-02-04] MEDS ORDERED: Vancomycin HCl 1 GM in Premix Bag 1 BAG IVPB SCH (17:00)
[2019-02-04] MEDS: Vancomycin HCl 1 GM in Premix Bag 1 BAG IVPB SCH (20:38)
[2019-02-05] MEDS: HumaLOG 300 UNITS/3 ML VIAL SC PRN ×4 (00:45→16:28)
[2019-02-05 05:02] LABS: #Eosinphils 0.3 thou/uL (0.0-0.7); #Monocytes 0.5 thou/uL (0.11-0.59); #Neutrophils 4.7 thou/uL (1.40-6.50); %Basophils 0.1 % (0.0-1.0); %Eosinophils 4.7 % (0.0-10.0); %Lymphocytes 15.5 % (21.0-51.0); %Neutrophils 71.8 % (42.0-75.0); Hemoglobin 8.8 g/dL (12.0-16.0); Mean Corpuscular HGB CONC 32.1 g/dL (32.0-36.0); Mean Corpuscular Hemoglobin 28.4 pg (27.0-31.0); Mean Corpuscular Volume 88.6 fL (78.0-98.0); Mean Platelet Volume 7.6 fL (7.4-10.4); Platelet Count 92 thou/uL (130-400); White Blood Cell (WBC) Count 6.6 thou/uL (4.8-10.8)
[2019-02-05] MEDS: Propofol 1,000 MG/100 ML VIAL IV PRN ×3 (05:07→22:19)
[2019-02-05 05:19] LABS: Anion Gap 8 mmol/L (10-20); BUN (Urea Nitrogen) 28 mg/dL (9.8-20.1); Calc. Creatinine Clearance 129 mL/min (70-130); Calcium 9.3 mg/dL (7.8-10.44); Carbon Dioxide 33 mmol/L (23-31); Chloride 102 mmol/L (98-107); Estimated GFR-MDRD 74; Glucose 184 mg/dL (83-110); Potassium 3.5 mmol/L (3.5-5.1); Sodium 139 mmol/L (136-145)
[2019-02-05 06:45] LABS: Actual Bicarbonate (HCO3a) 32.2 mEq/L (22-28); Base Excess (BEa) 6.8 mEq/L (-2.0 to +3.0); CO2 Tension 50.7 mmHg (35.0-45.0); Calcium, Ionized 1.28 mmol/L (1.12-1.30); Carboxyhemoglobin (COHb) 0.8 gm% (0.0-3.0); Hemoglobin (Hb) 9.5 g/dL (12.0-16.0); O2 Tension (PaO2) 84.4 mmHg (> 70.0); Potassium - ABG Lab 3.53 mmol/L (3.70-5.30); pH, Arterial 7.42 (7.35-7.45)
[2019-02-05 07:13] LABS: ALV-art Gradient 137.425 (0-20); Puncture Site RR
[2019-02-05] MEDS ORDERED: acetaZOLAMIDE Sodium 500 MG in Sodium Chloride 0.9% 50 ML IVPB SCH (08:59)
[2019-02-05] MEDS: Pantoprazole 40 MG VIAL IVP SCH (09:31)
[2019-02-05] MEDS: acetaZOLAMIDE Sodium 500 mg Vial IVP SCH ×2 (09:31→20:16)
[2019-02-05] MEDS: Furosemide 40 MG/4 ML VIAL SLOW IVP SCH (09:32)
[2019-02-05] MEDS: NPH, Human Insulin Isophane 300 UNIT/3 ML VIAL SC SCH ×2 (09:33→21:15)
[2019-02-05] MEDS: Sterile Water 10 ML VIAL FS SCH ×2 (09:33→20:16)
[2019-02-05] MEDS: Apixaban 5 MG TAB PO SCH ×2 (09:34→20:17)
[2019-02-05] MEDS: Magnesium Oxide 400 MG TAB PO SCH ×2 (09:34→20:16)
[2019-02-05] MEDS: Vancomycin HCl 1 GM in Premix Bag 1 BAG IVPB SCH ×2 (09:34→20:17)
--- NOTE | 2019-02-05 09:46 | PRG ---
DATE OF SERVICE: 02/05/2019 TIME SPENT: 35 minutes of critical care time. SUBJECTIVE: The patient remains intubated on mechanical ventilation. She is sedated on propofol. She is little difficult for me to awaken. OBJECTIVE: VITAL SIGNS: Her temperature is 97.8, pulse 63, blood pressure 164/75, O2 saturation 100%. A 24-hour intake 2533, output 1735. Weight 270 pounds. HEENT: Unremarkable. NECK: No adenopathy or JVD. LUNGS: Diminished breath sounds at the bases. CARDIAC: S1 and S2. Regular. ABDOMEN: Soft and nontender. EXTREMITIES: Edematous. LABORATORY DATA: Sodium 139, potassium 3.5, chloride 102, CO2 of 33, BUN 28, creatinine 0.7, and glucose 184. White blood cell count 6.6, hematocrit 27.5, and platelet count 92. Chest x-ray shows no significant change. ABG; pH of 7.42, pCO2 of 50, and pO2 of 84. ASSESSMENT: 1. Acute hypoxic respiratory failure, requiring mechanical ventilation. 2. Aid-[id number]-[id number] elevation myocardial infarction. 3. Deep venous thrombosis. 4. Cirrhosis of liver. 5. Thrombocytopenia. 6. Pneumonia. 7. Fluid overload. PLAN: 1. Continue diuresis, but increase the dose as her weight is up 2 pounds from yesterday. 2. Limit sedation. 3. Continue NPH. 4. Discontinue antibiotics after today. 5. Continue anticoagulation. Job ID: [id number]
--- NOTE | 2019-02-05 10:22 | RAD ---
CHEST ONE VIEW: HISTORY: Pneumonia. COMPARISON: 02/04/2019 FINDINGS: Life support tubes in place and stable. Bilateral pleural effusions, vascular congestion and bilatera l edema with cardiomegaly. IMPRESSION: Overall stable findings. Continue short term followup. POS: [facility]
--- NOTE | 2019-02-05 15:59 | PDOC.PALF ---
Purpose of Conference: Discuss current health status with patient sonRick Care Providers Present: Lindsey Augustine RNsoftware engineering analyst, Lindsey Flor [facility] Palliative Care Family Members Present: Rick patient son Meeting Comments: Son gave brief review of events prior to patient coming to the hospital. Discussed current health status paired with chronic disease processes. Goals of Care: Hopeful for successful extubation. Discussed if extubation is not initially successful that a conversation may need to occur in relation to a Trach/PEG. Discussed discharge and potential to have rehab prior to returning home. Summary: As noted above. Questions answered for Rick, providing therapeutic listening and support. Total Time Spent with Family: 40
--- NOTE | 2019-02-05 16:49 | PDOC.HOSPP ---
- Subjective Encounter Date: 02/05/19 Encounter Time: 09:40 Subjective: Pt seen for followup re: acute hypoxic respiratory failure. Pt intubated, unable to complete ROS. - Objective Vital Signs & Weight: Vital Signs (12 hours) Temp Pulse Resp BP Pulse Ox 02/05/19 16:00 98.1 F 12 02/05/19 14:00 13 02/05/19 13:54 71 125/52 L 02/05/19 12:00 15 02/05/19 11:00 98.3 F 02/05/19 10:43 62 152/72 H 02/05/19 10:00 15 02/05/19 08:00 12 100 02/05/19 07:56 61 134/67 02/05/19 07:00 97.8 F 02/05/19 06:00 12 Weight Admit Weight 268 lb Weight 270 lb 8.115 oz Most Recent Monitor Data Heart Rate from ECG 68 NIBP 136/66 NIBP BP-Mean 89 Respiration from ECG 18 SpO2 99 I&O: 02/04/19 02/05/19 02/06/19 06:59 06:59 06:59 Intake Total 2321 2533 200 Output Total 3260 1735 1680 Balance -939 798 -3530 Result Diagrams: 02/05/19 04:45 02/05/19 04:45 Additional Labs: Accuchecks 02/05/19 02/05/19 02/05/19 12:13 06:15 00:44 POC Glucose 228 H 178 H 181 H 02/04/19 18:18 POC Glucose 304 H Labs and MARs reviewed by me EKG Reviewed by me: Yes (Tele; NSR) Hospitalist ROS - Medication Medications: Active Medications Generic Name Dose Route Start Last Admin Trade Name Freq PRN Reason Stop Dose Admin Acetazolamide Sodium 500 mg 02/05/19 09:00 02/05/19 09:31 Diamox IVP 500 mg Q12HR CHEO Administration Albuterol/Ipratropium 3 ml 01/29/19 18:30 02/05/19 13:57 Duoneb NEB 3 ml [id number] CHEO Administration Apixaban 5 mg 02/03/19 09:00 02/05/19 09:34 Eliquis PO 5 mg BID CHEO Administration Furosemide 40 mg 02/04/19 09:00 02/05/19 09:32 Lasix SLOW IVP 40 mg DAILY CHEO Administration Hydralazine HCl 10 mg 01/29/19 17:51 02/03/19 21:02 Apresoline SLOW IVP 10 mg Q4H PRN Administration SBP Greater Than 180 Levofloxacin 750 mg/ Device 150 mls @ 100 mls/hr 01/29/19 17:00 02/05/19 16: 33 IVPB 150 mls Q24HR CHEO Administration Fentanyl Citrate 2,000 mcg/ 100 mls @ 0 mls/hr 01/29/19 16:20 02/02/19 04:22 Sodium Chloride IV 02/28/19 16:20 100 mls INF CHEO Administration Protocol Per Protocol Potassium Chloride 40 meq/ 100 mls @ 50 mls/hr 01/29/19 16:22 02/03/19 06:24 Device IVPB 100 mls ASDIR PRN Administration FOR SERUM K+ 2.5 - 3.5 Vancomycin HCl 1 gm/ Device 200 mls @ 200 mls/hr 02/04/19 21:00 02/05/19 09: 34 IVPB 200 mls BID CHEO Administration Insulin Human Lispro 0 units 02/02/19 18:21 02/05/19 16:28 Humalog SC 4 unit .MODERATE SLIDING SC PRN Administration Moderate Correctional Scale Insulin Human Lispro 0 units 02/02/19 18:21 02/03/19 20:46 Humalog SC 2 unit .BEDTIME SLIDING SC PRN Administration Bedtime Correctional Scale Insulin Human NPH 30 unit 02/04/19 07:59 02/05/19 09:33 Humulin N SC 30 unit BID CHEO Administration Lorazepam 2 mg 01/29/19 16:20 01/30/19 14:35 Ativan SLOW IVP 02/28/19 16:20 2 mg Q1H PRN Administration Breakthrough agitation Magnesium Oxide 400 mg 02/01/19 09:00 02/05/19 09:34 Magnesium Oxide PO 400 mg BID CHEO Administration Nystatin 1 gm 02/02/19 07:59 02/02/19 20:25 Mycostatin Powder TOP 1 applic BID PRN Administration Topical Irritations Pantoprazole Sodium 40 mg 02/03/19 09:00 02/05/19 09:31 Protonix IVP 40 mg DAILY CHEO Administration Potassium Chloride 40 meq 01/29/19 16:22 10/04/19 16:20 Klor-Con PER TUBE 40 meq ASDIR PRN Administration FOR SERUM K+ 2.5-3.5 Propofol 1,000 mg 01/29/19 16:20 02/05/19 12:18 Diprivan IV 02/28/19 16:20 1,000 mg INF PRN Administration TO ACHIEVE GOAL RASS Protocol Sodium Chloride 10 ml 01/30/19 09:00 02/05/19 09:36 Flush - Normal Saline IVF 10 ml Q12HR CHEO Administration Sterile Water 5 ml 02/05/19 09:00 02/05/19 09:33 Water For Injection FS 5 ml Q12HR CHEO Administration - Exam General - other findings: Morbid obesity Eye: anicteric sclera ENT: moist mucosa Neck - other findings: ETT Heart: RRR Respiratory: CTAB Gastrointestinal: soft, normal bowel sounds Psychiatric - other findings: Unable to assess Hosp A/P (1) Acute respiratory failure with hypoxemia Code(s): J96.01 - ACUTE RESPIRATORY FAILURE WITH HYPOXIA Status: Acute (2) Pneumonia Code(s): J18.9 - PNEUMONIA, UNSPECIFIED ORGANISM Status: Acute (3) DM2 (diabetes mellitus, type 2) Status: Chronic - Plan continue antibiotics Continue levofloxacin and vancomycin IV. Pt instubated and mechanically ventilated. Continue accuchecks and insulin sliding scale. Strep bacteremia and E. coli UTI. Palliative care meeting with family today.
[2019-02-06 05:24] LABS: #Eosinphils 0.4 thou/uL (0.0-0.7); #Lymphocytes 0.8 thou/uL (1.20-3.40); #Monocytes 0.5 thou/uL (0.11-0.59); #Neutrophils 5.7 thou/uL (1.40-6.50); %Basophils 0.2 % (0.0-1.0); %Eosinophils 5.3 % (0.0-10.0); %Lymphocytes 11.3 % (21.0-51.0); %Monocytes 7.3 % (0.0-10.0); %Neutrophils 75.9 % (42.0-75.0); Hemoglobin 8.8 g/dL (12.0-16.0); Mean Corpuscular HGB CONC 32.3 g/dL (32.0-36.0); Mean Corpuscular Hemoglobin 28.4 pg (27.0-31.0); Mean Corpuscular Volume 87.9 fL (78.0-98.0); Mean Platelet Volume 8.1 fL (7.4-10.4); Platelet Count 103 thou/uL (130-400); RBC Distribution Width 16.2 % (11.5-14.5); Red Blood Cell (RBC) Count 3.09 mill/uL (4.20-5.40); White Blood Cell (WBC) Count 7.4 thou/uL (4.8-10.8)
[2019-02-06 05:45] LABS: Anion Gap 9 mmol/L (10-20); BUN (Urea Nitrogen) 30 mg/dL (9.8-20.1); Calc. Creatinine Clearance 127 mL/min (70-130); Calcium 9.1 mg/dL (7.8-10.44); Carbon Dioxide 30 mmol/L (23-31); Chloride 102 mmol/L (98-107); Estimated GFR-MDRD 72; Glucose 198 mg/dL (83-110); Potassium 3.2 mmol/L (3.5-5.1); Sodium 138 mmol/L (136-145)
[2019-02-06] MEDS: HumaLOG 300 UNITS/3 ML VIAL SC PRN ×3 (06:35→17:06)
[2019-02-06] MEDS: Propofol 1,000 MG/100 ML VIAL IV PRN ×2 (06:42→17:05)
[2019-02-06 07:24] LABS: Actual Bicarbonate (HCO3a) 29.1 mEq/L (22-28); Base Excess (BEa) 4.7 mEq/L (-2.0 to +3.0); Calcium, Ionized 1.26 mmol/L (1.12-1.30); Carboxyhemoglobin (COHb) 1.3 gm% (0.0-3.0); Hemoglobin (Hb) 9.1 g/dL (12.0-16.0); O2 Tension (PaO2) 100.9 mmHg (> 70.0); Potassium - ABG Lab 3.34 mmol/L (3.70-5.30); pH, Arterial 7.45 (7.35-7.45)
[2019-02-06 08:03] LABS: Puncture Site RR
[2019-02-06] MEDS: Pantoprazole 40 MG VIAL IVP SCH (08:58)
--- NOTE | 2019-02-06 08:58 | RAD ---
PORTABLE CHEST: HISTORY: Respiratory distress. COMPARISON: Prior day's study. FINDINGS: Endotracheal and NG tubes and right central line are all unchanged in satisfactory position. The pul monary vessels and parahilar markings appear improved as compared to that prior exam. Persistent ple ural changes in the bases. IMPRESSION: Improved pulmonary edema-type change. POS: [facility]
[2019-02-06] MEDS: NPH, Human Insulin Isophane 300 UNIT/3 ML VIAL SC SCH ×2 (08:59→20:20)
[2019-02-06] MEDS: acetaZOLAMIDE Sodium 500 mg Vial IVP SCH ×2 (08:59→20:19)
[2019-02-06] MEDS: Furosemide 40 MG/4 ML VIAL SLOW IVP SCH (08:59)
[2019-02-06] MEDS: Apixaban 5 MG TAB PO SCH ×2 (08:59→20:20)
[2019-02-06] MEDS: Magnesium Oxide 400 MG TAB PO SCH ×2 (08:59→20:20)
[2019-02-06] MEDS: Sterile Water 10 ML VIAL FS SCH ×2 (09:02→20:20)
--- NOTE | 2019-02-06 09:02 | PRG ---
DATE OF SERVICE: 02/06/2019 TIME SPENT: 35 minutes critical time. SUBJECTIVE: The patient remains intubated on mechanical ventilation. She is much more arousable than she was yesterday. However, she is extremely weak. I cannot get her to lift her legs off the bed. She will not do anything but lightly squeeze with her hands. She even has a hard time shaking and nodding her head. OBJECTIVE: VITAL SIGNS: Her temperature is 98.7, pulse 68, blood pressure 120/64, O2 saturation 96%. A 24-hour intake 2615, output 2624, weight 271 pounds. HEENT: Unremarkable. NECK: No adenopathy or JVD. LUNGS: Fairly clear anteriorly. CARDIAC: S1, S2. Regular. ABDOMEN: Soft, obese, nontender. EXTREMITIES: Edematous hands and legs. LABORATORY DATA: White blood cell count 7.4, hematocrit 27.1, and platelet count 103. PH of 7.45, pCO2 of 43, PO2 of 100, that is on SIMV rate 8, inspiratory pressure 15, pressure support 10, PEEP 5, FiO2 40%. Sodium 138, potassium 3.2, chloride 102, CO2 of 30, BUN 30, creatinine 0.7, glucose 198. Chest x-ray actually shows some clearing compared to previous films. ASSESSMENT: 1. Acute hypoxic respiratory failure, requiring mechanical ventilation. 2. Fluid overload. 3. Pneumonia. 4. Deep venous thrombosis. 5. Cirrhosis of the liver. 6. Mild thrombocytopenia. 7. Severe deconditioning. 8. Hypokalemia. PLAN: I will go ahead and put her on CPAP for support. Unfortunately, I think her physical status is too weak to confidently predict that she will do well extubated. I want her to get up in chair with assistance and see how she does with that. I will stop the antibiotics today since she has had 7 days. She is continuing to receive sliding scale insulin and NPH insulin. She will continue to be diuresed with furosemide and acetazolamide. If one of the two were to be stopped over the weekend, I would favor stopping the furosemide. Job ID: [id number]
--- NOTE | 2019-02-06 18:14 | PDOC.HOSPP ---
- Subjective Encounter Date: 02/06/19 Encounter Time: 10:40 Subjective: Pt seen for followup re: acute hypoxic respiratory failure. Pt intubated, unable to complete ROS. - Objective Vital Signs & Weight: Vital Signs (12 hours) Temp Pulse Resp BP Pulse Ox 02/06/19 16:00 15 02/06/19 15:51 68 02/06/19 15:00 98.5 F 02/06/19 14:11 72 161/74 H 02/06/19 14:00 15 02/06/19 12:00 14 02/06/19 11:07 74 132/63 02/06/19 11:00 98.3 F 02/06/19 10:00 12 02/06/19 08:24 71 128/64 02/06/19 08:00 14 02/06/19 07:43 93 L 02/06/19 07:00 98.7 F Weight Admit Weight 268 lb Weight 271 lb 2.697 oz Most Recent Monitor Data Heart Rate from ECG 80 NIBP 139/70 NIBP BP-Mean 93 Respiration from ECG 19 SpO2 100 I&O: 02/05/19 02/06/19 02/07/19 06:59 06:59 06:59 Intake Total 2533 2615 875 Output Total 1735 2624 2107 Balance 870 -6 -7897 Result Diagrams: 02/06/19 04:55 02/06/19 04:55 Additional Labs: Accuchecks 02/06/19 02/06/19 02/06/19 12:21 06:35 00:39 POC Glucose 222 H 187 H 175 H 02/05/19 21:15 POC Glucose 173 H Labs and MARs reviewed by id Hospitalist ROS - Review of Systems ROS unobtainable: due to endotracheal tube - Medication Medications: Active Medications Generic Name Dose Route Start Last Admin Trade Name Freq PRN Reason Stop Dose Admin Acetazolamide Sodium 500 mg 02/05/19 09:00 02/06/19 08:59 Diamox IVP 500 mg Q12HR CHEO Administration Albuterol/Ipratropium 3 ml 01/29/19 18:30 02/06/19 14:10 Duoneb NEB 3 ml [id number] CHEO Administration Apixaban 5 mg 02/03/19 09:00 02/06/19 08:59 Eliquis PO 5 mg BID CHEO Administration Furosemide 40 mg 10/09/19 09:00 02/06/19 08:59 Lasix SLOW IVP 40 mg DAILY CHEO Administration Hydralazine HCl 10 mg 01/29/19 17:51 02/03/19 21:02 Apresoline SLOW IVP 10 mg Q4H PRN Administration SBP Greater Than 180 Fentanyl Citrate 2,000 mcg/ 100 mls @ 0 mls/hr 01/29/19 16:20 02/02/19 04:22 Sodium Chloride IV 02/28/19 16:20 100 mls INF CHEO Administration Protocol Per Protocol Potassium Chloride 40 meq/ 100 mls @ 50 mls/hr 01/29/19 16:22 02/03/19 06:24 Device IVPB 100 mls ASDIR PRN Administration FOR SERUM K+ 2.5 - 3.5 Insulin Human Lispro 0 units 02/02/19 18:21 02/06/19 17:06 Humalog SC 2 unit .MODERATE SLIDING SC PRN Administration Moderate Correctional Scale Insulin Human Lispro 0 units 02/02/19 18:21 02/03/19 20:46 Humalog SC 2 unit .BEDTIME SLIDING SC PRN Administration Bedtime Correctional Scale Insulin Human NPH 30 unit 02/04/19 07:59 02/06/19 08:59 Humulin N SC 30 unit BID CHEO Administration Lorazepam 2 mg 01/29/19 16:20 01/30/19 14:35 Ativan SLOW IVP 02/28/19 16:20 2 mg Q1H PRN Administration Breakthrough agitation Magnesium Oxide 400 mg 02/01/19 09:00 02/06/19 08:59 Magnesium Oxide PO 400 mg BID CHEO Administration Nystatin 1 gm 02/02/19 07:59 02/02/19 20:25 Mycostatin Powder TOP 1 applic BID PRN Administration Topical Irritations Pantoprazole Sodium 40 mg 02/03/19 09:00 02/06/19 08:58 Protonix IVP 40 mg DAILY CHEO Administration Potassium Chloride 40 meq 01/29/19 16:22 01/30/19 16:20 Klor-Con PER TUBE 40 meq ASDIR PRN Administration FOR SERUM K+ 2.5-3.5 Propofol 1,000 mg 01/29/19 16:20 02/06/19 17:05 Diprivan IV 02/28/19 16:20 1,000 mg INF PRN Administration TO ACHIEVE GOAL RASS Protocol Sodium Chloride 10 ml 01/30/19 09:00 02/06/19 09:01 Flush - Normal Saline IVF 10 ml Q12HR CHEO Administration Sterile Water 5 ml 02/05/19 09:00 02/06/19 09:02 Water For Injection FS 5 ml Q12HR CHEO Administration - Exam General - other findings: Morbid obese Eye: anicteric sclera ENT: normocephalic atraumatic, moist mucosa Neck: supple Heart: RRR, no rubs Respiratory: CTAB Gastrointestinal: soft, non-tender Extremities: no clubbing Psychiatric - other findings: Unable to assess Hosp A/P (1) Acute respiratory failure with hypoxemia Code(s): J96.01 - ACUTE RESPIRATORY FAILURE WITH HYPOXIA Status: Acute (2) Pneumonia Code(s): J18.9 - PNEUMONIA, UNSPECIFIED ORGANISM Status: Acute (3) DM2 (diabetes mellitus, type 2) Status: Chronic - Plan continue antibiotics, respiratory therapy Continue IV antibiotics (levofloxacin and vancomycin). Continue accuchecks and insulin sliding scale. Strep bacteremia and E. coli UTI. Replace potassium.
[2019-02-07] MEDS: HumaLOG 300 UNITS/3 ML VIAL SC PRN ×2 (00:12→06:22)
[2019-02-07 03:58] LABS: #Eosinphils 0.3 thou/uL (0.0-0.7); #Monocytes 0.5 thou/uL (0.11-0.59); #Neutrophils 5.5 thou/uL (1.40-6.50); %Basophils 0.1 % (0.0-1.0); %Eosinophils 4.3 % (0.0-10.0); %Lymphocytes 13.9 % (21.0-51.0); %Monocytes 6.8 % (0.0-10.0); %Neutrophils 74.9 % (42.0-75.0); Hemoglobin 8.8 g/dL (12.0-16.0); Mean Corpuscular HGB CONC 32.3 g/dL (32.0-36.0); Mean Corpuscular Hemoglobin 28.5 pg (27.0-31.0); Mean Corpuscular Volume 88.1 fL (78.0-98.0); Mean Platelet Volume 7.8 fL (7.4-10.4); Platelet Count 103 thou/uL (130-400); White Blood Cell (WBC) Count 7.3 thou/uL (4.8-10.8)
[2019-02-07 04:11] LABS: Anion Gap 8 mmol/L (10-20); BUN (Urea Nitrogen) 31 mg/dL (9.8-20.1); Calc. Creatinine Clearance 119 mL/min (70-130); Calcium 9.3 mg/dL (7.8-10.44); Carbon Dioxide 31 mmol/L (23-31); Chloride 105 mmol/L (98-107); Estimated GFR-MDRD 67; Glucose 198 mg/dL (83-110); Sodium 141 mmol/L (136-145)
[2019-02-07] MEDS: Propofol 1,000 MG/100 ML VIAL IV PRN (06:19)
--- NOTE | 2019-02-07 07:53 | RAD ---
Chest one view HISTORY: Pneumonia. Follow-up. COMPARISON: 02/06/2019. FINDINGS: Cardiac silhouette is magnified, enlarged, and now more obscured by worsening bibasilar inf iltrates and bilateral pleural fluid. Infiltrate is worst at the right lung base. Patient is rotated leftward. Lines and tubes appear unchanged in position. No evidence of pneumothora x. interior decorator leads overlie the chest. IMPRESSION: Worsening of bibasilar infiltrates and pleural fluid, worst at the right lower lobe.
[2019-02-07] MEDS: Furosemide 40 MG/4 ML VIAL SLOW IVP SCH (09:42)
[2019-02-07] MEDS: acetaZOLAMIDE Sodium 500 mg Vial IVP SCH ×2 (09:42→21:34)
[2019-02-07] MEDS: Sterile Water 10 ML VIAL FS SCH ×2 (09:42→21:34)
[2019-02-07] MEDS: NPH, Human Insulin Isophane 300 UNIT/3 ML VIAL SC SCH ×2 (09:44→22:59)
[2019-02-07] MEDS: Pantoprazole 40 MG VIAL IVP SCH (09:44)
[2019-02-07] MEDS: Magnesium Oxide 400 MG TAB PO SCH ×2 (09:44→21:35)
[2019-02-07] MEDS: Apixaban 5 MG TAB PO SCH ×2 (09:44→21:35)
--- NOTE | 2019-02-07 12:36 | PRG ---
DATE OF SERVICE: 02/07/2019 SERVICE: Pulmonary Medicine. INTERVAL HISTORY: The patient is doing poorly from a strength standpoint. She remains extraordinarily weak. She cannot provide any additional elements of the history. Otherwise, her oxygen requirements have improved dramatically, and she is diuresing beautifully. PHYSICAL EXAMINATION: VITAL SIGNS: Afebrile, pulse 69, blood pressure 154/71, respirations 15, saturation 99%, currently on 23% FiO2 and PEEP of 5. GENERAL: The patient is intubated and under the influence of minimal sedation. HEENT: Normocephalic, atraumatic. Sclerae white. Conjunctivae pink. Oral mucosa is moist without lesions. LUNGS: Decent air entry. No prolonged expiratory phase or wheezing is appreciated. HEART: Normal rate and regular. ABDOMEN: Soft, nontender, and nondistended. Bowel sounds are positive. MUSCULOSKELETAL: No cyanosis or clubbing. There is 1 to 2+ pitting throughout. NEUROLOGIC: Grossly nonfocal. LABORATORY DATA: WBC 7.3, hemoglobin 8.8, and platelets 103,000. Potassium 3.0. Basic metabolic profile is otherwise unremarkable. Sodium is 141 and gently up-trending. Chloride 105. Magnesium was last checked over a week ago. Central line is growing strep agalactiae. Enterococcus faecalis is growing in the urine. Different blood culture is negative. Enterococcus faecalis was pansensitive as was her strep species. IMAGING DATA: Chest x-ray demonstrates bibasilar infiltrates and pleural effusion. The effusions are bilateral. Endotracheal tube terminates in a good position. Enteric catheter courses midline below the level of the diaphragm. This is a rotated study, but I get the impression of cardiac silhouette is quite generous. Cephalization is still present. ASSESSMENT: 1. Acute hypoxic respiratory failure. 2. Acute on chronic diastolic heart failure. 3. Community-acquired pneumonia. 4. Deep venous thrombosis. 5. Cirrhosis. 6. Deconditioning, profound. 7. Hypokalemia. DISCUSSION AND PLAN: I will aggressively replace the potassium as we continue to diurese the patient through time. Magnesium and phosphorus will be rechecked tomorrow morning. We are going to put her on a spontaneous breathing trial at 3/5 three times daily and increase as tolerated. Hopefully, we can exercise her to the point where we can safely extubate her in 24 hours. Pulmonary/Critical Care will follow very closely. CRITICAL CARE TIME: 30 minutes. Job ID: [id number]
--- NOTE | 2019-02-07 13:34 | PDOC.HOSPP ---
- Subjective Encounter Date: 02/07/19 Encounter Time: 10:40 Subjective: Pt seen for followup re: acute hypoxic respiratory failure. Pt is intubated. - Objective Vital Signs & Weight: Vital Signs (12 hours) Temp Pulse Resp BP Pulse Ox 02/07/19 10:42 60 02/07/19 10:00 14 02/07/19 08:00 99.2 F 17 97 02/07/19 07:19 72 02/07/19 06:00 14 02/07/19 04:00 99.6 F 17 02/07/19 03:29 74 145/63 H 02/07/19 02:00 13 Weight Admit Weight 266 lb 12.149 oz Weight 270 lb 4.587 oz Most Recent Monitor Data Heart Rate from ECG 69 NIBP 154/71 NIBP BP-Mean 98 Respiration from ECG 15 SpO2 99 I&O: 02/06/19 02/07/19 02/08/19 06:59 06:59 06:59 Intake Total 2615 2086.5 60 Output Total 2624 3022 210 [facility] [place] -9 -935.5 -150 Result Diagrams: 02/07/19 03:30 02/07/19 03:30 Additional Labs: Accuchecks 02/07/19 02/07/19 02/07/19 12:46 06:24 00:13 POC Glucose 162 H 208 H 180 H 02/06/19 20:20 POC Glucose 183 H labs and MARs reviewed by me EKG Reviewed by me: Yes (Tele; NSR) Hospitalist ROS - Review of Systems ROS unobtainable: due to endotracheal tube - Medication Medications: Active Medications Generic Name Dose Route Start Last Admin Trade Name Freq PRN Reason Stop Dose Admin Acetazolamide Sodium 500 mg 02/05/19 09:00 02/07/19 09:42 Diamox IVP 500 mg Q12HR CHEO Administration Albuterol/Ipratropium 3 ml 01/29/19 18:30 02/07/19 10:40 Duoneb NEB 3 ml [id number] CHEO Administration Apixaban 5 mg 02/03/19 09:00 02/07/19 09:44 Eliquis PO 5 mg BID CHEO Administration Hydralazine HCl 10 mg 01/29/19 17:51 02/03/19 21:02 Apresoline SLOW IVP 10 mg Q4H PRN Administration SBP Greater Than 180 Potassium Chloride 40 meq/ 100 mls @ 50 mls/hr 01/29/19 16:22 02/03/19 06:24 Device IVPB 100 mls ASDIR PRN Administration FOR SERUM K+ 2.5 - 3.5 Insulin Human Lispro 0 units 02/02/19 18:21 02/07/19 06:22 Humalog SC 4 unit .MODERATE SLIDING SC PRN Administration Moderate Correctional Scale Insulin Human Lispro 0 units 02/02/19 18:21 02/03/19 20:46 Humalog SC 2 unit .BEDTIME SLIDING SC PRN Administration Bedtime Correctional Scale Insulin Human NPH 30 unit 02/04/19 07:59 02/07/19 09:44 Humulin N SC 30 unit BID CHEO Administration Lorazepam 2 mg 01/29/19 16:20 01/30/19 14:35 Ativan SLOW IVP 02/28/19 16:20 2 mg Q1H PRN Administration Breakthrough agitation Magnesium Oxide 400 mg 02/01/19 09:00 02/07/19 09:44 Magnesium Oxide PO 400 mg BID CHEO Administration Nystatin 1 gm 02/02/19 07:59 02/02/19 20:25 Mycostatin Powder TOP 1 applic BID PRN Administration Topical Irritations Pantoprazole Sodium 40 mg 02/03/19 09:00 02/07/19 09:44 Protonix IVP 40 mg DAILY CHEO Administration Potassium Chloride 40 meq 01/29/19 16:22 02/07/19 04:41 Klor-Con PER TUBE 40 meq ASDIR PRN Administration FOR SERUM K+ 2.5-3.5 Sodium Chloride 10 ml 01/30/19 09:00 02/07/19 09:45 Flush - Normal Saline IVF 10 ml Q12HR CHEO Administration Sterile Water 5 ml 02/05/19 09:00 02/07/19 09:42 Water For Injection FS 5 ml Q12HR CHEO Administration - Exam General Appearance: NAD Eye: anicteric sclera ENT: normocephalic atraumatic ENT - other findings: ETT Heart: RRR Respiratory: CTAB Gastrointestinal: soft Extremities: no clubbing Psychiatric - other findings: Unable to assess Hosp A/P (1) Acute respiratory failure with hypoxemia Code(s): J96.01 - ACUTE RESPIRATORY FAILURE WITH HYPOXIA Status: Acute (2) Acute on chronic diastolic congestive heart failure, NYHA class 3 Code(s): I50.33 - ACUTE ON CHRONIC DIASTOLIC (CONGESTIVE) HEART FAILURE Status : Acute (3) DM2 (diabetes mellitus, type 2) Status: Chronic (4) Pneumonia Code(s): J18.9 - PNEUMONIA, UNSPECIFIED ORGANISM Status: Resolved - Plan Continue IV furosemide. Continue accuchecks and switch to aggressive insulin sliding scale. Replace potassium.
[2019-02-07] MEDS ORDERED: HumaLOG 300 UNITS/3 ML VIAL SC PRN (13:38)
[2019-02-07] MEDS: Potassium Chloride 40 MEQ in Premix Bag 1 BAG IVPB SCH ×2 (13:54→16:38)
[2019-02-07] MEDS: Dextrose 5% in Water 1,000 ML IV SCH (13:55)
[2019-02-07] MEDS ORDERED: Furosemide 40 MG/4 ML VIAL SLOW IVP SCH (16:00)
[2019-02-08 04:40] LABS: Anion Gap 8 mmol/L (10-20); BUN (Urea Nitrogen) 26 mg/dL (9.8-20.1); Calc. Creatinine Clearance 130 mL/min (70-130); Calcium 9.4 mg/dL (7.8-10.44); Carbon Dioxide 28 mmol/L (23-31); Chloride 108 mmol/L (98-107); Estimated GFR-MDRD 74; Glucose 114 mg/dL (83-110); Magnesium 2.3 mg/dL (1.6-2.6); Phosphorus 3.3 mg/dL (2.3-4.7); Potassium 3.2 mmol/L (3.5-5.1); Sodium 141 mmol/L (136-145)
[2019-02-08 04:44] LABS: #Eosinphils 0.4 thou/uL (0.0-0.7); #Lymphocytes 1.2 thou/uL (1.20-3.40); #Monocytes 0.4 thou/uL (0.11-0.59); #Neutrophils 5.5 thou/uL (1.40-6.50); %Basophils 0.2 % (0.0-1.0); %Eosinophils 4.8 % (0.0-10.0); %Lymphocytes 15.7 % (21.0-51.0); %Monocytes 5.4 % (0.0-10.0); %Neutrophils 73.8 % (42.0-75.0); Hemoglobin 9.4 g/dL (12.0-16.0); Mean Corpuscular Hemoglobin 28.3 pg (27.0-31.0); Mean Corpuscular Volume 88.4 fL (78.0-98.0); Mean Platelet Volume 8.1 fL (7.4-10.4); Platelet Count 113 thou/uL (130-400); RBC Distribution Width 16.2 % (11.5-14.5); Red Blood Cell (RBC) Count 3.31 mill/uL (4.20-5.40); White Blood Cell (WBC) Count 7.5 thou/uL (4.8-10.8)
[2019-02-08] MEDS: Potassium Chloride 40 MEQ in Premix Bag 1 BAG IVPB PRN (05:15)
[2019-02-08] MEDS: Furosemide 40 MG/4 ML VIAL SLOW IVP SCH (05:15)
[2019-02-08] MEDS: acetaZOLAMIDE Sodium 500 mg Vial IVP SCH (09:35)
[2019-02-08] MEDS: Sterile Water 10 ML VIAL FS SCH ×2 (09:35→20:32)
[2019-02-08] MEDS: Apixaban 5 MG TAB PO SCH ×2 (09:35→20:31)
[2019-02-08] MEDS: NPH, Human Insulin Isophane 300 UNIT/3 ML VIAL SC SCH ×2 (09:36→20:36)
[2019-02-08] MEDS: Magnesium Oxide 400 MG TAB PO SCH ×2 (09:36→20:31)
[2019-02-08] MEDS: Pantoprazole 40 MG VIAL IVP SCH (09:36)
[2019-02-08] MEDS ORDERED: Potassium Chloride 20 MEQ TAB PO SCH (11:30)
--- NOTE | 2019-02-08 11:43 | PRG ---
DATE OF SERVICE: 02/08/2019 SERVICE: Pulmonary Medicine. INTERVAL HISTORY: The patient got extubated yesterday. Frankly, she did much better than I expected. Overnight, she did not have any significant events. She indicates that she is breathing comfortably this morning. She is actually demonstrating improved strength. PHYSICAL EXAMINATION: VITAL SIGNS: Afebrile, pulse 69, blood pressure 138/57, respirations 18, and saturation 100% on 2 L nasal cannula. GENERAL: The patient is awake and alert, in no apparent distress. LUNGS: Decent air entry. Dependent crackles are noted. HEART: Normal rate and regular. ABDOMEN: Soft, nontender, nondistended. Bowel sounds are positive. MUSCULOSKELETAL: No cyanosis or clubbing. There is diffuse 1 to 2+ pitting throughout, though it is improving. : Cheng catheter in place. NEUROLOGIC: Grossly nonfocal. She demonstrates diffuse weakness. LABORATORY DATA: WBC 7.5, hemoglobin 9.4, and platelets 113,000 and rebounding. INR 1.5. Potassium 3.2. Basic metabolic profile, magnesium and phosphorus are otherwise unremarkable. ASSESSMENT: 1. Acute hypoxic respiratory failure, resolving. 2. Acute on chronic diastolic heart failure. 3. Community-acquired pneumonia, improving. 4. Deep venous thrombosis. 5. Cirrhosis. 6. Hypokalemia, improving. 7. Deconditioning, profound. DISCUSSION AND PLAN: We will once again replace the potassium. I will give her a laboratory holiday tomorrow morning otherwise. We will continue to diurese her down to euvolemia. In order to prevent hypernatremia, I will continue a very slow rate of D5 water. At this point, she is stable for transition to the medical unit. Pulmonary will continue to follow along. We will look into rehab options. Job ID: [id number]
[2019-02-08] MEDS: Dextrose 5% in Water 1,000 ML IV SCH ×2 (12:47→20:31)
--- NOTE | 2019-02-08 18:50 | PDOC.HOSPP ---
- Subjective Encounter Date: 02/08/19 Encounter Time: 10:20 Subjective: Pt seen for followup re: acute hypoxic respiratory failure. Extubated yesterday , says she feels better. - Objective Vital Signs & Weight: Vital Signs (12 hours) Temp Pulse Resp Pulse Ox 02/08/19 18:30 77 25 H 90 L 02/08/19 16:00 97.8 F 02/08/19 14:47 67 17 88 L 02/08/19 12:00 97.7 F 02/08/19 10:39 69 18 100 02/08/19 08:00 97.6 F 98 02/08/19 07:40 99 02/08/19 07:38 69 19 99 Weight Admit Weight 266 lb 12.149 oz Weight 261 lb 0.437 oz Most Recent Monitor Data Heart Rate from ECG 76 NIBP 167/59 NIBP BP-Mean 95 Respiration from ECG 19 SpO2 97 I&O: 02/07/19 02/08/19 02/09/19 06:59 06:59 06:59 Intake Total 2086.5 1198 872 Output Total 3022 3115 1015 [facility] -935.5 -1917 -143 Result Diagrams: 02/08/19 03:40 02/08/19 03:40 Additional Labs: Accuchecks 02/08/19 02/08/19 02/08/19 17:30 12:22 05:33 POC Glucose 136 H 140 H 106 02/08/19 02/07/19 00:40 21:38 POC Glucose 124 H 122 H labs and MARs reviewed by me EKG Reviewed by me: Yes (Tele: NSR) Hospitalist ROS - Review of Systems Cardiovascular: denies: chest pain, palpitations, orthopnea, paroxysmal noc. dyspnea, edema, light headedness Gastrointestinal: denies: nausea, vomiting, abdominal pain, diarrhea, constipation, melena, hematochezia - Medication Medications: Active Medications Generic Name Dose Route Start Last Admin Trade Name Freq PRN Reason Stop Dose Admin Albuterol/Ipratropium 3 ml 01/29/19 18:30 02/08/19 18:30 Duoneb NEB 3 ml [id number] CHEO Administration Apixaban 5 mg 02/03/19 09:00 02/08/19 09:35 Eliquis PO 5 mg BID CHEO Administration Furosemide 40 mg 02/08/19 06:00 02/08/19 05:15 Lasix SLOW IVP 40 mg 0600 CHEO Administration Hydralazine HCl 10 mg 01/29/19 17:51 02/03/19 21:02 Apresoline SLOW IVP 10 mg Q4H PRN Administration SBP Greater Than 180 Dextrose/Water 1,000 mls @ 31 mls/hr 02/07/19 12:30 02/08/19 12:47 D5w IV Not Given .Q24H CHEO Insulin Human Lispro 0 units 02/02/19 18:21 02/03/19 20:46 Humalog SC 2 unit .BEDTIME SLIDING SC PRN Administration Bedtime Correctional Scale Insulin Human NPH 30 unit 02/04/19 07:59 02/08/19 09:36 Humulin N SC 30 unit BID CHEO Administration Magnesium Oxide 400 mg 02/01/19 09:00 02/08/19 09:36 Magnesium Oxide PO 400 mg BID CHEO Administration Nystatin 1 gm 02/02/19 07:59 02/02/19 20:25 Mycostatin Powder TOP 1 applic BID PRN Administration Topical Irritations Pantoprazole Sodium 40 mg 02/03/19 09:00 02/08/19 09:36 Protonix IVP 40 mg DAILY CHEO Administration Sodium Chloride 10 ml 01/30/19 09:00 02/08/19 09:36 Flush - Normal Saline IVF 10 ml Q12HR CHEO Administration Sterile Water 5 ml 02/05/19 09:00 02/08/19 09:35 Water For Injection FS 5 ml Q12HR CHEO Administration - Exam General - other findings: Morbid obesity Eye: anicteric sclera ENT: moist mucosa Neck: supple Heart: RRR, no rubs Respiratory: CTAB, no rales Gastrointestinal: soft, non-tender Neurological: no weakness Musculoskeletal: no muscle wasting Psychiatric: normal affect, normal behavior Hosp A/P (1) Acute respiratory failure with hypoxemia Code(s): J96.01 - ACUTE RESPIRATORY FAILURE WITH HYPOXIA Status: Acute (2) Acute on chronic diastolic congestive heart failure, NYHA class 3 Code(s): I50.33 - ACUTE ON CHRONIC DIASTOLIC (CONGESTIVE) HEART FAILURE Status : Acute (3) DM2 (diabetes mellitus, type 2) Status: Chronic (4) Pneumonia Code(s): J18.9 - PNEUMONIA, UNSPECIFIED ORGANISM Status: Resolved - Plan PT/OT, out of bed/ambulate s/p extubation yesterday. Mobilize pt. Continue IV furosemide. Continue aggressive insulin sliding scale. Replace potassium.
[2019-02-08] MEDS: diphenhydrAMINE 25 MG CAP PO PRN (20:31)
[2019-02-09] MEDS: diphenhydrAMINE 25 MG CAP PO PRN ×2 (04:05→20:46)
[2019-02-09] MEDS: Furosemide 40 MG/4 ML VIAL SLOW IVP SCH (05:47)
[2019-02-09 06:07] LABS: Anion Gap 8 mmol/L (10-20); BUN (Urea Nitrogen) 27 mg/dL (9.8-20.1); Calc. Creatinine Clearance 109 mL/min (70-130); Calcium 9.3 mg/dL (7.8-10.44); Carbon Dioxide 28 mmol/L (23-31); Chloride 109 mmol/L (98-107); Estimated GFR-MDRD 64; Glucose 97 mg/dL (83-110); Potassium 3.4 mmol/L (3.5-5.1); Sodium 142 mmol/L (136-145)
[2019-02-09] MEDS ORDERED: Potassium Chloride 20 MEQ TAB PO SCH (08:00)
--- NOTE | 2019-02-09 08:20 | PRG ---
DATE OF SERVICE: 02/09/2019 SUBJECTIVE: She was extubated 2 days ago and is actually doing quite well. She is awake, alert, and conversant, and is in no respiratory distress. OBJECTIVE: VITAL SIGNS: On exam, temperature is 98.4, pulse 77, blood pressure 138/58, and O2 saturation is 92%. Intake for 24 hours 1313, output 1460. Weight 255 pounds. HEENT: Unremarkable. NECK: No adenopathy or JVD. CHEST: Clear. CARDIAC: S1 and S2. Regular. ABDOMEN: Soft. EXTREMITIES: No edema. LABORATORY DATA: Sodium 142, potassium 3.4, chloride 109, CO2 of 28, BUN 27, creatinine 0.8, and glucose 64. ASSESSMENT: 1. Status post respiratory failure, requiring mechanical ventilation. 2. Pneumonia. 3. Deep venous thrombosis. 4. Cirrhosis of liver. 5. Thrombocytopenia. 6. Severe deconditioning. 7. Hypokalemia. PLAN: She is transferred to Medical. I will go ahead and make her IV diuretics oral. She is off antibiotics. This is mainly a rehabilitation issue. Job ID: [id number]
[2019-02-09] MEDS: Furosemide 40 MG TAB PO SCH (08:26)
[2019-02-09] MEDS: Apixaban 5 MG TAB PO SCH ×2 (08:26→20:46)
[2019-02-09] MEDS: Magnesium Oxide 400 MG TAB PO SCH ×2 (08:26→20:46)
[2019-02-09] MEDS: AcetaZOLAMIDE 250 MG TAB PO SCH (08:26)
[2019-02-09] MEDS: Pantoprazole 40 MG VIAL IVP SCH (08:27)
[2019-02-09] MEDS: NPH, Human Insulin Isophane 300 UNIT/3 ML VIAL SC SCH ×2 (08:28→20:46)
[2019-02-09] MEDS ORDERED: acetaZOLAMIDE Sodium 500 mg Vial IVP SCH (09:00)
[2019-02-09] MEDS: traMADol HCl 50 MG TAB PO PRN (21:32)
[2019-02-09] MEDS: Acetaminophen 325 MG TAB PO PRN (21:32)
--- NOTE | 2019-02-09 22:47 | PDOC.HOSPP ---
- Subjective Encounter Date: 02/09/19 Encounter Time: 07:45 Subjective: Patient seen and examined for Resp failure. Intermittent confusion. No overnight events - Objective Vital Signs & Weight: Vital Signs (12 hours) Temp Pulse Resp Pulse Ox 02/09/19 22:37 97 02/09/19 20:00 98.7 F 02/09/19 19:06 97 02/09/19 19:04 20 96 02/09/19 15:50 99.0 F 02/09/19 14:09 72 17 95 02/09/19 11:03 73 18 95 02/09/19 11:00 98.7 F Weight Admit Weight 266 lb 12.149 oz Weight 255 lb 15.307 oz Most Recent Monitor Data Heart Rate from ECG 69 NIBP 152/64 NIBP BP-Mean 93 Respiration from ECG 18 SpO2 93 I&O: 02/08/19 02/09/19 02/10/19 06:59 06:59 06:59 Intake Total 1198 1313 1419 Output Total 8267 8130 0665 [facility] -1917 -147 -56 Result Diagrams: 02/08/19 03:40 02/09/19 04:10 Additional Labs: Accuchecks 02/09/19 02/09/19 02/09/19 20:47 17:16 11:48 POC Glucose 145 H 110 139 H EKG Reviewed by me: Yes (Tele SR) Hospitalist ROS - Review of Systems ROS unobtainable: due to mental status - Medication Medications: Active Medications Generic Name Dose Route Start Last Admin Trade Name Freq PRN Reason Stop Dose Admin Acetaminophen 650 mg 02/09/19 21:14 02/09/19 21:32 Tylenol PO 650 mg Q6H PRN Administration Headache/Fever or Pain MILD Acetazolamide 500 mg 02/09/19 09:00 02/09/19 08:26 Diamox PO 500 mg 0900 CHEO Administration Albuterol/Ipratropium 3 ml 01/29/19 18:30 02/09/19 22:37 Duoneb NEB 3 ml [id number] CHEO Administration Apixaban 5 mg 02/03/19 09:00 02/09/19 20:46 Eliquis PO 5 mg BID CHEO Administration Diphenhydramine HCl 25 mg 02/08/19 20:18 02/09/19 20:46 Benadryl PO 25 mg Q8H PRN Administration .ITCHING Furosemide 40 mg 02/09/19 09:00 02/09/19 08:26 Lasix PO Not Given 0900 [facility] Hydralazine HCl 10 mg 01/29/19 17:51 02/03/19 21:02 Apresoline SLOW IVP 10 mg Q4H PRN Administration SBP Greater Than 180 Dextrose/Water 1,000 mls @ 31 mls/hr 02/07/19 12:30 02/08/19 20:31 D5w IV 1,000 mls .Q24H CHEO Administration Insulin Human Lispro 0 units 02/02/19 18:21 02/03/19 20:46 Humalog SC 2 unit .BEDTIME SLIDING SC PRN Administration Bedtime Correctional Scale Insulin Human NPH 30 unit 02/04/19 07:59 02/09/19 20:46 Humulin N SC 30 unit BID CHEO Administration Magnesium Oxide 400 mg 02/01/19 09:00 02/09/19 20:46 Magnesium Oxide PO 400 mg BID CHEO Administration Nystatin 1 gm 02/02/19 07:59 02/02/19 20:25 Mycostatin Powder TOP 1 applic BID PRN Administration Topical Irritations Pantoprazole Sodium 40 mg 02/03/19 09:00 02/09/19 08:27 Protonix IVP 40 mg DAILY CHEO Administration Sodium Chloride 10 ml 01/30/19 09:00 02/09/19 21:41 Flush - Normal Saline IVF 10 ml Q12HR CHEO Administration Tramadol HCl 50 mg 02/09/19 21:14 02/09/19 21:32 Ultram PO 50 mg Q6H PRN Administration Moderate Pain (4-6) - Exam General Appearance: NAD Heart: RRR, no gallops Respiratory: no wheezes, rhonchi Gastrointestinal: soft, non-tender, normal bowel sounds Extremities: no edema Hosp A/P (1) Acute on chronic diastolic congestive heart failure, NYHA class 3 Code(s): I50.33 - ACUTE ON CHRONIC DIASTOLIC (CONGESTIVE) HEART FAILURE Status : Acute (2) Acute respiratory failure with hypoxemia Code(s): J96.01 - ACUTE RESPIRATORY FAILURE WITH HYPOXIA Status: Acute (3) Hypothyroidism Code(s): E03.9 - HYPOTHYROIDISM, UNSPECIFIED Status: Acute (4) Pneumonia Code(s): J18.9 - PNEUMONIA, UNSPECIFIED ORGANISM Status: Acute (5) DVT (deep venous thrombosis) Code(s): I82.409 - ACUTE EMBOLISM AND THOMBOS UNSP DEEP VN UNSP LOWER EXTREMITY Status: Acute (6) Morbid obesity with BMI of 40.0-44.9, adult Code(s): E66.01 - MORBID (SEVERE) OBESITY DUE TO EXCESS CALORIES; Z68.41 - BODY MASS INDEX (BMI) 40.0-44.9, ADULT Status: Acute (7) DM2 (diabetes mellitus, type 2) Status: Chronic Qualifiers: Chronic kidney disease stage: stage 2 (mild) - Plan DVT proph w/SCDs Lasix changed to oral On Eliquis Cont other meds as above
[2019-02-10 03:51] LABS: Anion Gap 9 mmol/L (10-20); BUN (Urea Nitrogen) 22 mg/dL (9.8-20.1); Calc. Creatinine Clearance 111 mL/min (70-130); Calcium 9.3 mg/dL (7.8-10.44); Carbon Dioxide 27 mmol/L (23-31); Chloride 108 mmol/L (98-107); Estimated GFR-MDRD 66; Glucose 88 mg/dL (83-110); Potassium 3.8 mmol/L (3.5-5.1); Sodium 140 mmol/L (136-145)
[2019-02-10] MEDS: Dextrose 5% in Water 1,000 ML IV SCH (05:36)
[2019-02-10] MEDS: NPH, Human Insulin Isophane 300 UNIT/3 ML VIAL SC SCH ×2 (08:46→21:06)
[2019-02-10] MEDS: diphenhydrAMINE 25 MG CAP PO PRN ×2 (09:14→21:04)
[2019-02-10] MEDS: Magnesium Oxide 400 MG TAB PO SCH ×2 (09:15→21:04)
[2019-02-10] MEDS: Apixaban 5 MG TAB PO SCH ×2 (09:15→21:04)
[2019-02-10] MEDS: traMADol HCl 50 MG TAB PO PRN (09:15)
[2019-02-10] MEDS: AcetaZOLAMIDE 250 MG TAB PO SCH (09:16)
[2019-02-10] MEDS: Furosemide 40 MG TAB PO SCH (09:17)
--- NOTE | 2019-02-10 09:20 | PRG ---
DATE OF SERVICE: 02/10/2019 SUBJECTIVE: The patient is doing fairly well. She is lying comfortably in bed, still awaiting a room on the floor. OBJECTIVE: VITAL SIGNS: On exam, temperature is 97.9, pulse 72, blood pressure 177/80, and O2 saturation 98%. Intake for 24 hours 2068, output 1750. HEENT: Unremarkable. NECK: No adenopathy or JVD. CHEST: Clear. CARDIAC: S1 and S2. Regular. ABDOMEN: Soft. EXTREMITIES: Trace edema. LABORATORY DATA: Sodium 140, potassium 3.8, chloride 108, CO2 of 27, BUN 22, creatinine 0.8, and glucose 88. ASSESSMENT: 1. Status post respiratory failure, requiring mechanical ventilation. 2. Pneumonia. 3. Deep venous thrombosis. 4. Cirrhosis of the liver. 5. Thrombocytopenia, chronic. 6. Severe deconditioning. 7. Mild hypokalemia. PLAN: 1. Still awaiting floor bed. 2. Mainly a reconditioning issue at this point. 3. Continue Eliquis for the DVT. Job ID: [id number]
--- NOTE | 2019-02-10 10:50 | PDOC.HOSPP ---
- Subjective Encounter Date: 02/10/19 Encounter Time: 07:30 Subjective: Patient seen and examined. No new complaints. No overnight events - Objective Vital Signs & Weight: Vital Signs (12 hours) Temp Pulse Resp Pulse Ox 02/10/19 10:13 76 16 92 L 02/10/19 07:30 96 02/10/19 07:19 98 02/10/19 07:18 63 14 99 02/10/19 07:00 97.9 F 02/10/19 04:00 98.5 F 02/10/19 03:04 91 L 02/10/19 00:00 98.6 F Weight Admit Weight 266 lb 12.149 oz Weight 259 lb 11.272 oz Most Recent Monitor Data Heart Rate from ECG 82 NIBP 171/91 NIBP BP-Mean 117 Respiration from ECG 17 SpO2 96 I&O: 02/09/19 02/10/19 02/11/19 06:59 06:59 06:59 Intake Total 1313 2069 220 Output Total 1460 1750 325 Balance -147 319 -105 Result Diagrams: 02/08/19 03:40 02/10/19 03:15 Additional Labs: Accuchecks 02/10/19 02/09/19 02/09/19 05:14 20:47 17:16 POC Glucose 96 145 H 110 02/09/19 11:48 POC Glucose 139 H EKG Reviewed by me: Yes Hospitalist ROS - Review of Systems Constitutional: reports: weakness, malaise. denies: fever, chills, sweats, other ENT: denies: ear pain, ear discharge, nose pain, nose discharge, nose congestion , mouth pain, mouth swelling, throat pain, throat swelling, other Respiratory: denies: cough, dry, shortness of breath, hemoptysis, SOB with excertion, pleuritic pain, sputum, wheezing, other Cardiovascular: denies: chest pain, palpitations, orthopnea, paroxysmal noc. dyspnea, edema, light headedness, other Gastrointestinal: denies: nausea, vomiting, abdominal pain, diarrhea, constipation, melena, hematochezia, other Genitourinary: denies: dysuria, frequency, incontinence, hematuria, retention, other Musculoskeletal: denies: neck pain, shoulder pain, arm pain, back pain, hand pain, leg pain, foot pain, other Skin: denies: rash, lesions, richard, bruising, other - Medication Medications: Active Medications Generic Name Dose Route Start Last Admin Trade Name Freq PRN Reason Stop Dose Admin Acetaminophen 650 mg 02/09/19 21:14 02/09/19 21:32 Tylenol PO 650 mg Q6H PRN Administration Headache/Fever or Pain MILD Acetazolamide 500 mg 02/09/19 09:00 02/10/19 09:16 Diamox PO 500 mg 0900 CHEO Administration Albuterol/Ipratropium 3 ml 01/29/19 18:30 02/10/19 10:13 Duoneb NEB 3 ml [id number] CHEO Administration Apixaban 5 mg 02/03/19 09:00 02/10/19 09:15 Eliquis PO 5 mg BID CHEO Administration Diphenhydramine HCl 25 mg 02/08/19 20:18 02/10/19 09:14 Benadryl PO 25 mg Q8H PRN Administration .ITCHING Furosemide 40 mg 02/09/19 09:00 02/10/19 09:17 Lasix PO 40 mg 0900 CHEO Administration Hydralazine HCl 10 mg 01/29/19 17:51 02/03/19 21:02 Apresoline SLOW IVP 10 mg Q4H PRN Administration SBP Greater Than 180 Dextrose/Water 1,000 mls @ 31 mls/hr 02/07/19 12:30 02/10/19 05:36 D5w IV 1,000 mls .Q24H CHEO Administration Insulin Human Lispro 0 units 02/02/19 18:21 02/03/19 20:46 Humalog SC 2 unit .BEDTIME SLIDING SC PRN Administration Bedtime Correctional Scale Insulin Human NPH 30 unit 02/04/19 07:59 02/10/19 08:46 Humulin N SC 30 unit BID CHEO Administration Magnesium Oxide 400 mg 02/01/19 09:00 02/10/19 09:15 Magnesium Oxide PO 400 mg BID CHEO Administration Nystatin 1 gm 02/02/19 07:59 02/02/19 20:25 Mycostatin Powder TOP 1 applic BID PRN Administration Topical Irritations Pantoprazole Sodium 40 mg 02/10/19 09:00 02/10/19 09:17 Protonix PO 40 mg DAILY CHEO Administration Sodium Chloride 10 ml 01/30/19 09:00 02/10/19 09:37 Flush - Normal Saline IVF Not Given Q12HR CHEO Tramadol HCl 50 mg 02/09/19 21:14 02/10/19 09:15 Ultram PO 50 mg Q6H PRN Administration Moderate Pain (4-6) - Exam General Appearance: NAD, awake alert Eye: PERRL, anicteric sclera ENT: normocephalic atraumatic, no oropharyngeal lesions Neck: supple, symmetric, no JVD, no thyromegaly Heart: RRR, no murmur, no gallops, no rubs Respiratory: CTAB, no wheezes, no rales, no ronchi Gastrointestinal: soft, non-tender, non-distended, normal bowel sounds Gastrointestinal - other findings: obesity+ Extremities: no clubbing, 1+ LE edema Skin: normal turgor, no lesions Neurological: no focal deficits Musculoskeletal: normal tone, normal strength Psychiatric: normal affect, normal behavior Hosp A/P (1) Acute on chronic diastolic congestive heart failure, NYHA class 3 Code(s): I50.33 - ACUTE ON CHRONIC DIASTOLIC (CONGESTIVE) HEART FAILURE Status : Acute (2) Acute respiratory failure with hypoxemia Code(s): J96.01 - ACUTE RESPIRATORY FAILURE WITH HYPOXIA Status: Acute (3) Physical deconditioning Code(s): R53.81 - OTHER MALAISE Status: Acute (4) Deep vein thrombosis (DVT) of distal vein of left lower extremity Code(s): I82.4Z2 - AC EMBLSM AND THOMBOS UNSP DEEP VEINS OF LEFT DIST LOW EXTRM Status: Acute Qualifiers: Chronicity: acute Qualified Code(s): I82.4Z2 - Acute embolism and thrombosis of unspecified deep veins of left distal lower extremity (5) Hypothyroidism Code(s): E03.9 - HYPOTHYROIDISM, UNSPECIFIED Status: Chronic (6) LBBB (left bundle branch block) Code(s): I44.7 - LEFT BUNDLE-BRANCH BLOCK, UNSPECIFIED Status: Chronic (7) Morbid obesity with BMI of 40.0-44.9, adult Code(s): E66.01 - MORBID (SEVERE) OBESITY DUE TO EXCESS CALORIES; Z68.41 - BODY MASS INDEX (BMI) 40.0-44.9, ADULT Status: Chronic (8) DM2 (diabetes mellitus, type 2) Status: Chronic Qualifiers: Chronic kidney disease stage: stage 2 (mild) (9) Anemia, normocytic normochromic Code(s): D64.9 - ANEMIA, UNSPECIFIED Status: Chronic - Plan old records reviewed/req, PT/OT, social psychologist, dc IVF medication reviewed as above symptomatic treatment pt is now euvolemic pt has deconditioning and will need PT/OT and eventual rehab vs snu placement
[2019-02-10 11:17] VITALS: BMI 43.2
[2019-02-10] MEDS: Acetaminophen 325 MG TAB PO PRN (21:04)
[2019-02-11 06:20] LABS: Anion Gap 8 mmol/L (10-20); BUN (Urea Nitrogen) 17 mg/dL (9.8-20.1); Calc. Creatinine Clearance 120 mL/min (70-130); Calcium 9.1 mg/dL (7.8-10.44); Carbon Dioxide 26 mmol/L (23-31); Chloride 108 mmol/L (98-107); Estimated GFR-MDRD 71; Glucose 87 mg/dL (83-110); Potassium 3.6 mmol/L (3.5-5.1); Sodium 138 mmol/L (136-145)
[2019-02-11] MEDS: Apixaban 5 MG TAB PO SCH ×2 (07:51→20:46)
[2019-02-11] MEDS: Furosemide 40 MG TAB PO SCH (07:52)
[2019-02-11] MEDS: traMADol HCl 50 MG TAB PO PRN ×2 (07:52→15:24)
[2019-02-11] MEDS: Magnesium Oxide 400 MG TAB PO SCH ×2 (07:53→20:46)
[2019-02-11] MEDS: NPH, Human Insulin Isophane 300 UNIT/3 ML VIAL SC SCH ×2 (07:54→20:46)
[2019-02-11] MEDS: AcetaZOLAMIDE 250 MG TAB PO SCH (09:22)
--- NOTE | 2019-02-11 10:54 | PDOC.HOSPP ---
- Subjective Subjective: Seen and examined. Sleeping comfortably when I came into the room. Complains of leg pain, back pain, and general aches across her body. Re assured here that with the rainy weather osteoarthritis pains may be more severe. Recommended continuation with PT/OT. Patient states she lives with her son and ultimately would like to go home when she is strong enough. Needs inpatient PT/ OT services in SNF vs Rehab. Time was given for questions, all answered in detail. - Objective Vital Signs & Weight: Vital Signs (12 hours) Temp Pulse Resp BP Pulse Ox 02/11/19 10:44 85 20 94 L 02/11/19 08:00 98.5 F 76 20 170/75 H 95 02/11/19 07:04 72 16 92 L 02/11/19 04:00 98.4 F 72 20 150/62 H 92 L 02/11/19 01:43 69 16 95 02/11/19 00:00 99.0 F 72 20 150/70 H 92 L Weight Admit Weight 266 lb 12.149 oz Weight 259 lb 11.272 oz Most Recent Monitor Data Heart Rate from ECG 73 NIBP 133/60 NIBP BP-Mean 84 Respiration from ECG 16 SpO2 100 I&O: 02/10/19 02/11/19 02/12/19 06:59 06:59 06:59 Intake Total 2069 1291 Output Total 1750 2830 Balance 319 -1539 Result Diagrams: 02/08/19 03:40 02/11/19 05:44 Additional Labs: Accuchecks 02/11/19 02/10/19 02/10/19 05:02 21:13 17:07 POC Glucose 85 156 H 137 H 02/10/19 12:04 POC Glucose 119 H Radiology Reviewed by me: Yes (CXR ) Hospitalist ROS - Review of Systems All other systems reviewed; all pertinent +/- noted in HPI/Subj - Medication Medications: Active Medications Generic Name Dose Route Start Last Admin Trade Name Freq PRN Reason Stop Dose Admin Acetaminophen 650 mg 02/09/19 21:14 02/10/19 21:04 Tylenol PO 650 mg Q6H PRN Administration Headache/Fever or Pain MILD Acetazolamide 500 mg 02/09/19 09:00 02/11/19 09:22 Diamox PO 500 mg 0900 CHEO Administration Albuterol/Ipratropium 3 ml 01/29/19 18:30 02/11/19 10:44 Duoneb NEB 3 ml [id number] CHEO Administration Apixaban 5 mg 02/03/19 09:00 02/11/19 07:51 Eliquis PO 5 mg BID CHEO Administration Diphenhydramine HCl 25 mg 02/08/19 20:18 02/10/19 21:04 Benadryl PO 25 mg Q8H PRN Administration .ITCHING Furosemide 40 mg 02/09/19 09:00 02/11/19 07:52 Lasix PO 40 mg 0900 CHEO Administration Hydralazine HCl 10 mg 01/29/19 17:51 02/03/19 21:02 Apresoline SLOW IVP 10 mg Q4H PRN Administration SBP Greater Than 180 Insulin Human Lispro 0 units 02/02/19 18:21 02/03/19 20:46 Humalog SC 2 unit .BEDTIME SLIDING SC PRN Administration Bedtime Correctional Scale Insulin Human NPH 30 unit 02/04/19 07:59 02/11/19 07:54 Humulin N SC 30 unit BID CHEO Administration Magnesium Oxide 400 mg 02/01/19 09:00 02/11/19 07:53 Magnesium Oxide PO 400 mg BID CHEO Administration Nystatin 1 gm 02/02/19 07:59 02/02/19 20:25 Mycostatin Powder TOP 1 applic BID PRN Administration Topical Irritations Pantoprazole Sodium 40 mg 02/10/19 09:00 02/11/19 07:51 Protonix PO 40 mg DAILY CHEO Administration Sodium Chloride 10 ml 01/30/19 09:00 02/11/19 07:54 Flush - Normal Saline IVF 10 ml Q12HR CHEO Administration Tramadol HCl 50 mg 02/09/19 21:14 02/11/19 07:52 Ultram PO 50 mg Q6H PRN Administration Moderate Pain (4-6) - Exam General Appearance: NAD, awake alert Eye: anicteric sclera ENT: normocephalic atraumatic, moist mucosa Neck: supple, symmetric, no lymphadenopathy Heart: no murmur, no gallops, no rubs Respiratory: CTAB, no rales, no ronchi, wheezes (Faint - patient states they are improving.) Gastrointestinal: soft, non-tender, no guarding, no rigidity Gastrointestinal - other findings: Elevated BMI Extremities: 1+ LE edema Skin: no lesions, no rashes Neurological: cranial nerve grossly intact, no focal deficits Musculoskeletal: generalized weakness Psychiatric: normal affect, A&O x 3 Hosp A/P (1) BHARGAV (acute kidney injury) Code(s): N17.9 - ACUTE KIDNEY FAILURE, UNSPECIFIED Status: Acute (2) Acute non-ST elevation myocardial infarction (NSTEMI) Code(s): I21.4 - NON-ST ELEVATION (NSTEMI) MYOCARDIAL INFARCTION Status: Resolved (3) Acute on chronic diastolic congestive heart failure, NYHA class 3 Code(s): I50.33 - ACUTE ON CHRONIC DIASTOLIC (CONGESTIVE) HEART FAILURE Status : Chronic (4) Acute respiratory failure with hypoxemia Code(s): J96.01 - ACUTE RESPIRATORY FAILURE WITH HYPOXIA Status: Resolved (5) CHF exacerbation Code(s): I50.9 - HEART FAILURE, UNSPECIFIED Status: Resolved (6) COPD exacerbation Code(s): J44.1 - CHRONIC OBSTRUCTIVE PULMONARY DISEASE W (ACUTE) EXACERBATION Status: Resolved (7) Cellulitis of right lower extremity Code(s): L03.115 - CELLULITIS OF RIGHT LOWER LIMB Status: Resolved (8) DVT (deep venous thrombosis) Code(s): I82.409 - ACUTE EMBOLISM AND THOMBOS UNSP DEEP VN UNSP LOWER EXTREMITY Status: Acute (9) Deep vein thrombosis (DVT) of distal vein of left lower extremity Code(s): I82.4Z2 - AC EMBLSM AND THOMBOS UNSP DEEP VEINS OF LEFT DIST LOW EXTRM Status: Acute Qualifiers: Chronicity: acute Qualified Code(s): I82.4Z2 - Acute embolism and thrombosis of unspecified deep veins of left distal lower extremity (10) Hypokalemia Code(s): E87.6 - HYPOKALEMIA Status: Resolved (11) Hypomagnesemia Code(s): E83.42 - HYPOMAGNESEMIA Status: Resolved (12) Physical deconditioning Code(s): R53.81 - OTHER MALAISE Status: Chronic (13) Pneumonia Code(s): J18.9 - PNEUMONIA, UNSPECIFIED ORGANISM Status: Acute (14) Sepsis Code(s): A41.9 - SEPSIS, UNSPECIFIED ORGANISM Status: Acute (15) Streptococcal bacteremia Code(s): R78.81 - BACTEREMIA; B95.5 - UNSP STREPTOCOCCUS THE CAUSE OF DISEASES CLASSD ELSWHR Status: Acute (16) Streptococcus agalactiae infection Code(s): A49.1 - STREPTOCOCCAL INFECTION, UNSPECIFIED SITE Status: Acute (17) Anemia, normocytic normochromic Code(s): D64.9 - ANEMIA, UNSPECIFIED Status: Chronic (18) DM2 (diabetes mellitus, type 2) Status: Chronic Qualifiers: Chronic kidney disease stage: stage 2 (mild) (19) Hypothyroidism Code(s): E03.9 - HYPOTHYROIDISM, UNSPECIFIED Status: Chronic (20) Morbid obesity with BMI of 40.0-44.9, adult Code(s): E66.01 - MORBID (SEVERE) OBESITY DUE TO EXCESS CALORIES; Z68.41 - BODY MASS INDEX (BMI) 40.0-44.9, ADULT Status: Chronic - Plan Plan: Med/ surg Pulm/ CC consult, recommendations appreciated Pulm hygiene Eliquis for DVT NPH BID for glucose control Finished ABX per pulm BP meds cardiomyopathy regimen as able EF 50-55%, likely diastolic dysfunction Continue current plan of care Needs inpatient PT/OT services at SNF vs Rehab
--- NOTE | 2019-02-11 11:06 | PRG ---
DATE OF SERVICE: 02/11/2019 SUBJECTIVE: She has no acute respiratory complaints. She feels very weak. OBJECTIVE: VITAL SIGNS: Temperature 98.5, pulse 76, respirations 20, O2 saturation 95% on room air, and blood pressure 170/75. HEENT: Unremarkable. NECK: No adenopathy, JVD, or bruits. LUNGS: Clear anteriorly. CARDIAC: S1 and S2, regular. ABDOMEN: Soft. LABORATORY DATA: Sodium 138, potassium 3.6, BUN 17, creatinine 0.8, and glucose 87. ASSESSMENT: 1. Status post pneumonia. 2. Status post respiratory failure, requiring mechanical ventilation. PLAN: Mainly a rehabilitative issue at this point. The patient is off antibiotics. She is on Eliquis for a DVT. This should continue for 6 months. Main issue now is rehab and she is probably ready to go over there when approved. Job ID: [id number]
[2019-02-11] MEDS: diphenhydrAMINE 25 MG CAP PO PRN (15:23)
[2019-02-11] MEDS: Acetaminophen 325 MG TAB PO PRN (20:46)
[2019-02-12] MEDS: diphenhydrAMINE 25 MG CAP PO PRN ×2 (00:16→13:12)
[2019-02-12] MEDS: traMADol HCl 50 MG TAB PO PRN ×2 (00:16→13:12)
[2019-02-12] MEDS: Magnesium Oxide 400 MG TAB PO SCH (08:35)
[2019-02-12] MEDS: Furosemide 40 MG TAB PO SCH (08:35)
[2019-02-12] MEDS: Apixaban 5 MG TAB PO SCH (08:35)
[2019-02-12] MEDS: NPH, Human Insulin Isophane 300 UNIT/3 ML VIAL SC SCH (08:37)
--- NOTE | 2019-02-12 09:56 | PRG ---
DATE OF SERVICE: 02/12/2019 SUBJECTIVE: The patient is doing reasonably well. She did not get up out of bed yesterday. OBJECTIVE: VITAL SIGNS: Temperature 98.0, pulse 77, respirations 16, O2 saturation 95% on room air, and blood pressure 144/64. HEENT: Without abnormality. NECK: No JVD. LUNGS: Clear without wheezing or rhonchi. CARDIAC: S1 and S2, regular. ABDOMEN: Soft. EXTREMITIES: No edema. ASSESSMENT: 1. Status post respiratory failure, requiring mechanical ventilation. 2. Deep venous thrombosis. 3. Status post pneumonia. PLAN: 1. Continue Eliquis for DVT-total duration of therapy should be 6 months. 2. Ready for rehab transfer from my standpoint. Job ID: [id number]
[2019-02-12] MEDS: AcetaZOLAMIDE 250 MG TAB PO SCH (10:49)
[2019-02-12 11:27] VITALS: BP 172/78; TEMP 98.5
--- NOTE | 2019-02-13 05:21 | DIS ---
DATE OF ADMISSION: 01/29/2019 DATE OF DISCHARGE: 02/12/2019 ADMITTING DIAGNOSES: 1. Acute respiratory failure. 2. Acute congestive heart failure exacerbation. 3. Possible pneumonia. FINAL DIAGNOSES: 1. Pneumonia, improving. 2. Possible cin-AX-kubngigaf myocardial infarction. 3. Acute respiratory failure, resolved. HOSPITAL COURSE: The patient hospitalized. IV Lasix was started. IV antibiotics were started. The patient was seen by consultants, Dr. Villalta, Dr. Timmons, Dr. Hollis. The patient has been in the hospital for prolonged course of time, for 10 days. Patient's condition slowly improved. As patient has been doing well, it has been concluded to transfer the patient to residential facility for further management. INVESTIGATIONS PERFORMED DURING THIS HOSPITALIZATION: As follows: CT scan of the brain within normal limits. CT scan of the chest with CTA shows no evidence of pulmonary embolism. X-ray of the chest shows possible pneumonia. Antibiotics were continued. Echocardiogram shows ejection fraction of 56%. Left ventricular size was normal. Mild mitral regurgitation present. Mild MR. Right ventricular systolic pressure was elevated. As the patient is requiring physical therapy and occupational therapy, it has been concluded to transfer the patient to residential facility. DISCHARGE INSTRUCTIONS: Transfer the patient to residential facility. DISCHARGE MEDICATIONS: As per reconciliation sheet. DIET: Cardiac. ACTIVITY: As per Physical Therapy. FOLLOWUP CARE: Followup with PCP in the residential facility and by the refractory technician as an outpatient. Job ID: [id number]
== END 2019-02-12 15:07 | DRG 870 ==
LOC: EDBD 11:52 → ERS 11:52 → CCU 17:34 → T4-A 02-10 20:01
PROVIDERS: ADMIT Family Medicine; ATTEND Family Medicine
PROC: 0BH17EZ Insertion of Endotracheal Airway into Trachea, Via Natural or Artificial Opening (ICD-10-PCS; principal; 2019-01-29)
PROC: 5A1955Z Respiratory Ventilation, Greater than 96 Consecutive Hours (ICD-10-PCS; 2019-01-29)
PROC: 05HP33Z Insertion of Infusion Device into Right External Jugular Vein, Percutaneous Approach (ICD-10-PCS; 2019-01-29)
DX: A40.8 Other streptococcal sepsis (principal); J96.01 Acute respiratory failure with hypoxia; I21.4 Non-ST elevation (NSTEMI) myocardial infarction; J96.02 Acute respiratory failure with hypercapnia; I50.33 Acute on chronic diastolic (congestive) heart failure; J15.9 Unspecified bacterial pneumonia; N17.9 Acute kidney failure, unspecified; L03.115 Cellulitis of right lower limb; I82.4Z2 Acute embolism and thrombosis of unspecified deep veins of left distal lower extremity; I13.0 Hypertensive heart and chronic kidney disease with heart failure and stage 1 through stage 4 chronic kidney disease, or unspecified chronic kidney disease; Z68.41 Body mass index [BMI] 40.0-44.9, adult; K76.6 Portal hypertension; E87.0 Hyperosmolality and hypernatremia; Z51.5 Encounter for palliative care; J44.9 Chronic obstructive pulmonary disease, unspecified; D63.1 Anemia in chronic kidney disease; E11.22 Type 2 diabetes mellitus with diabetic chronic kidney disease; N18.2 Chronic kidney disease, stage 2 (mild); D69.6 Thrombocytopenia, unspecified; E66.01 Morbid (severe) obesity due to excess calories; I44.7 Left bundle-branch block, unspecified; E87.6 Hypokalemia; E83.42 Hypomagnesemia; K74.60 Unspecified cirrhosis of liver; E03.9 Hypothyroidism, unspecified; I95.9 Hypotension, unspecified; E78.5 Hyperlipidemia, unspecified; Z88.0 Allergy status to penicillin; Z88.2 Allergy status to sulfonamides; Z88.8 Allergy status to other drugs, medicaments and biological substances
CPT/HCPCS: 31500; 36415; 36416; 36556; 51702; 70450; 71045; 71275; 74174; 80048; 80053; 80202; 81003; 81015; 82553; 82805; 83036; 83605; 83735; 83880; 84100; 84443; 84484; 85025; 85610; 85730; 87040; 87077; 87086; 87149; 87186; 93005; 93306; 93970; 94002; 94003; 94640; 96365; 96366; 96367; 96374; 96375; 96376; 99292; C9113; J0360; J0456; J0696; J1120; J1650; J1815; J1940; J1956; J2060; J2250; J2704; J3010; J3370; J3411; J3480; J3490; J7050; J7620; Q0163; Q9967

== ENCOUNTER 2019-03-30 13:58 | Observation (INO) | payer MEDICARE, MEDICAID ==
[2019-03-30] MEDS ORDERED: Iopamidol-370 76% 500 ML 1 ML ONE (15:18)
[2019-03-30 15:55] LABS: #Eosinphils 0.1 thou/uL (0.0-0.7); #Monocytes 0.4 thou/uL (0.11-0.59); #Neutrophils 5.1 thou/uL (1.40-6.50); %Basophils 0.7 % (0.0-1.0); %Eosinophils 1.1 % (0.0-10.0); %Lymphocytes 15.5 % (21.0-51.0); %Monocytes 5.3 % (0.0-10.0); %Neutrophils 77.4 % (42.0-75.0); Hemoglobin 10.2 g/dL (12.0-16.0); Mean Corpuscular HGB CONC 32.1 g/dL (32.0-36.0); Mean Corpuscular Hemoglobin 28.6 pg (27.0-31.0); Platelet Count 100 thou/uL (130-400); RBC Distribution Width 16.4 % (11.5-14.5); Red Blood Cell (RBC) Count 3.58 mill/uL (4.20-5.40); White Blood Cell (WBC) Count 6.6 thou/uL (4.8-10.8)
[2019-03-30 16:00] LABS: PTT 40.4 SEC (22.9-36.1); Prothrombin Time 22.3 SEC (12.0-14.7)
[2019-03-30 16:04] LABS: Bilirubin Negative (Negative); Blood, Urine Negative (Negative); Clarity Clear (Clear); Glucose, Urine (Dipstick) Normal (Negative); Leukocyte Negative Leu/uL (Negative); Nitrite Negative (Negative); Protein, Urine (Dipstick) Negative (Neg-Trace); Urobilinogen Normal mg/dL (Less than 2)
[2019-03-30 16:16] LABS: ALT (SGPT) 18 U/L (8-55); AST (SGOT) 25 U/L (5-34); Albumin 3.9 g/dL (3.4-4.8); Alkaline Phosphatase 158 U/L (40-110); Anion Gap 13 mmol/L (10-20); BUN (Urea Nitrogen) 15 mg/dL (9.8-20.1); Bilirubin, Total 0.7 mg/dL (0.2-1.2); Calc. Creatinine Clearance 0 mL/min (70-130); Calcium 10.5 mg/dL (7.8-10.44); Carbon Dioxide 19 mmol/L (23-31); Chloride 113 mmol/L (98-107); Estimated GFR-MDRD 63; Globulin 3.2 g/dL (2.4-3.5); Glucose 99 mg/dL (83-110); Lipase 79 U/L (8-78); Protein, Total 7.1 g/dL (6.0-8.3); Sodium 141 mmol/L (136-145)
--- NOTE | 2019-03-30 18:48 | CT ---
EXAM: CT ABDOMEN AND PELVIS HISTORY: Left-sided abdominal pain. Bloody stools. COMPARISON: None. Procedure: Multiple contiguous axial images were obtained and a CT of the abdomen and pelvis with IV contrast. C oronal reformats were performed. FINDINGS: Lower Chest: Dependent atelectatic change Vessels: Normal caliber aorta. Minimal atherosclerosis. Heart: Normal heart size. No significant pericardial fluid Abdomen: Portal vein:Patent Gallbladder: 2.8 cm gallstone. No evidence of cholecystitis Liver: Nodularity, compatible with cirrhotic change. Pancreas: within normal limits. Spleen: Splenomegaly, measuring 14.7 cm. There are prominent splenic varices. Adrenals: within normal limits. Kidneys: Symmetric enhancement. No obstructive uropathy. Peritoneum: No ascites or free air, no fluid collection. Bowel: No evidence of bowel obstruction. Ileocecal junction is unremarkable. Appendix is not apprecia maryann. No inflammation of the cecal apex. Scattered fecal material in a nondistended, nondilated colon. Descending colon and sigmoid colon diverticulosis, without evidence of diverticulitis. Mesentery and Retroperitoneum: No enlarged mesenteric or retroperitoneal lymph nodes. Abdominal Wall: Ventral abdominal wall hernia containing mesenteric fat. Defect measures approximatel y 1 cm. Pelvis: Reproductive Organs: Reproductive organs are unremarkable. Pelvis: No mass, lymphadenopathy, free air or free fluid. Bladder: within normal limits. Bones: within normal limits. IMPRESSION: No evidence of acute intraabdominal\pelvic abnormality.
[2019-03-30 19:04] LABS: Lactic Acid 3.1 mmol/L (0.5-2.2)
[2019-03-30] MEDS ORDERED: Pantoprazole 40 MG VIAL ONE (19:29)
[2019-03-30] MEDS ORDERED: Acetaminophen 325 MG TAB ONE (20:37)
[2019-03-30 21:53] VITALS: BMI 38.2
[2019-03-30] MEDS ORDERED: Ondansetron PF 4 MG/2 ML Vial IVP PRN (21:55)
[2019-03-30] MEDS ORDERED: Ondansetron ODT 4 MG TAB SL PRN (21:55)
[2019-03-30] MEDS: Sodium Chloride 0.9% 1,000 ML IV SCH (22:55)
[2019-03-30 22:59] LABS: Hemoglobin 10.1 g/dL (12.0-16.0)
[2019-03-31] MEDS: Sodium Chloride 0.9% 1,000 ML IV SCH ×3 (04:10→20:24)
[2019-03-31] MEDS: Acetaminophen 325 MG TAB PO PRN ×3 (04:27→20:31)
[2019-03-31] MEDS: Levothyroxine 150 MCG TAB PO SCH (04:28)
[2019-03-31] MEDS ORDERED: Sodium Chloride 0.9% 1,000 ML IV SCH (04:30)
[2019-03-31] MEDS: AcetaZOLAMIDE 250 MG TAB PO SCH (09:13)
[2019-03-31] MEDS: Furosemide 40 MG TAB PO SCH (09:13)
[2019-03-31] MEDS: Lisinopril 5 MG TAB PO SCH (09:13)
--- NOTE | 2019-03-31 11:12 | HP ---
CHIEF COMPLAINT: Abdominal plain and bloody stools. HISTORY OF PRESENT ILLNESS: This patient is a 73-year-old female who was recently admitted to this facility with severe pneumonia with respiratory compromise, profound debility and required some therapy in followup. She did very well from that perspective. The patient also had a DVT diagnosed during that admission with a partially occlusive thrombus of the left posterior tibial vein. She had been started on Eliquis 5 mg b.i.d. Of note, the patient also had cirrhosis noted on her CT of the chest and had an INR of 1.5 at the time of admission prior to initiating the Eliquis. The patient was in her usual state of health until the day of admission, at which time she passed several bowel movements, which had a salmeron red coloration. She had 4 to 5 of those bowel movements from 8 a.m. until noon. She had some associated left upper quadrant abdominal pain, primarily when she had some tenesmus or felt the need to strain. There was no radiation of that pain and that pain has essentially resolved at this point. It is also important that the patient had a colonoscopy, she reports, about [address] Bowles. It sounds like she had a colonoscopy done for heme-positive stools and she indicates that she had 17 polyps removed but was told at that time that she did not need a followup colonoscopy for 10 years. Currently, the patient is feeling somewhat better, denying specific complaints other than voiding frequently from the IV fluids. REVIEW OF SYSTEMS: The patient has had some lower extremity edema. She is on a diuretics at home. She has some back pain which is more chronic in nature and she has the urinary frequency from the IV fluids. All other systems reviewed. All pertinent positives and negatives noted in the history of present illness. PAST MEDICAL HISTORY: Notable for the history of colon polyps, diabetes mellitus, hypertension, hypothyroidism, coronary artery disease, cirrhosis, left lower extremity DVT, hemorrhoids, history of cholelithiasis. PAST SURGICAL HISTORY: Tonsillectomy, back surgery, right ovarian cystectomy and colonoscopy as stated above. FAMILY HISTORY: Father had hypertension and IA at 64. Mother at 62. She states it was related to a scorpion bite, but details are unclear. SOCIAL HISTORY: Nonsmoker, nondrinker, nondrug user. She is full code. Her son, Rick Valencia, would be her surrogate decision maker. ALLERGIES: CODEINE, PENICILLIN, IODINE, BETADINE SOAP AND SULFA. CURRENT MEDICATIONS: 1. Levothyroxine 150 mcg p.o. daily. 2. Lasix 20 mg daily. 3. Tramadol p.r.n. 4. Metformin 1000 mg b.i.d. 5. Verapamil 180 mg daily. 6. Atorvastatin 10 mg at bedtime. 7. Diamox 500 mg q.a.m. 8. Potassium 20 mEq p.o. daily. 9. Lisinopril 5 mg daily. 10. Eliquis 5 mg b.i.d. PHYSICAL EXAMINATION: VITAL SIGNS: Temperature is 98.2, pulse 72, respirations 16, O2 saturation 97% on room air, and BP ranging from 162/70 up to 198/88. GENERAL APPEARANCE: Age-appropriate female, she is in no distress. She is awake, alert, oriented, pleasant, and cooperative. She is morbidly obese. HEENT: PERRL, no OP lesions. HEART: Regular rate and rhythm without murmurs, gallops, or rubs. LUNGS: Clear to auscultation bilaterally with good chest wall expansion and air exchange. ABDOMEN: Soft, nontender, and nondistended. Positive bowel sounds, no masses and no organomegaly. EXTREMITIES: Trace to 1+ edema. No cyanosis or clubbing. NEUROLOGIC: She moves all extremities spontaneously. No focal deficits. Cranial nerves are intact. SKIN: Warm and dry with no lesions. PSYCHIATRIC: Normal affect and behavior. LABORATORY DATA: Initial CBC, white count 6.6, hemoglobin 10.2, platelets 100. Subsequent hemoglobin is 10.1 and 9.0. Sodium is 141, potassium 4.0, chloride is 113, CO2 of 19, BUN 15, creatinine 0.88, glucose 99. Lactic acid was initially 4.0, subsequent 3.1. Calcium was 10.5. Total bilirubin 0.7, AST 25, and ALT 18, and alkaline phosphatase 158. Troponin 0.012. BNP is 30. Albumin 3.9, lipase 79. Urinalysis is negative. PT is 22.3 with an INR 2.0 and a PTT of 40.4. CT abdomen and pelvis shows no evidence of acute intraabdominal or pelvic abnormalities. IMPRESSION AND PLAN: 1. Lower gastrointestinal bleed. The patient has a history of cirrhosis with related mild intrinsic coagulopathy. She also has a DVT for which she was started on Eliquis at therapeutic dosing and now she has developed some evidence of lower GI bleeding. Her hemoglobin has been fairly stable and she does not appear to continue to be actively having a bleeding. She did have a subsequent bowel movement which did not appear to be grossly bloody and her blood pressure is certainly not low. Holding the Eliquis at this point. GI will be consulted. I anticipate we will hold the Eliquis for a few days. We will determine need for ongoing anticoagulation. 2. History of left lower extremity deep venous thrombosis. Given her anticoagulation, we will repeat lower extremity Doppler. If the DVT has resolved, we will consider discontinuing the anticoagulation. If it is still present, we will consider lower dose of the apixaban. 3. Diabetes mellitus. Holding the metformin given the fact that she had IV contrast with the CT scan. 4. Hypothyroidism, continue with current levothyroxine. 5. Hypertension. The patient's blood pressure is significantly elevated. I have resumed her usual home medications. If it continues to be elevated subsequent to those, we will consider IV p.r.n. medications. 6. Hypercalcemia. The patient does not have a history of hypercalcemia, although her calcium levels have been slowly increasing and we will need to continue to monitor those. 7. Lactic acidosis, etiology is not clear. It appears to be improving. Does not appear to be a picture of sepsis. 8. History of cirrhosis based on imaging. The etiology is not clear. The patient is not a consumer of alcohol. May need outpatient evaluation including hepatitis panel. 9. Thrombocytopenia, may be related to her cirrhosis picture. 10. History of mild to moderate tricuspid regurgitation based on her prior echocardiogram. She also had elevated right ventricular systolic pressures and a dilated IVC, appears to be stable. Job ID: [id number]
--- NOTE | 2019-03-31 14:11 | ULT ---
EXAM: Left lower extremity venous Doppler US HISTORY: Previous DVT in the left lower extremity FINDINGS: Grayscale, color-flow, Doppler evaluation, spectral analysis of the left lower extremity venous struc tures is performed with 2-D imaging. The left common femoral, superficial femoral, popliteal, posterior tibial, proximal greater saphenous and profunda femoral veins are imaged. There is normal luminal compressibility, flow, and augmentation the visualized deep venous structures of the left lower extremity. IMPRESSION: No evidence of a deep vein thrombosis in the left lower extremity.
[2019-03-31] MEDS ORDERED: GoLYTELY 4,000 ml Bottle PO SCH (16:00)
[2019-03-31] MEDS ORDERED: Lisinopril 5 MG TAB PO SCH (16:45)
[2019-03-31] MEDS ORDERED: Atorvastatin Calcium 10 MG TAB PO SCH (21:00)
[2019-03-31 21:46] LABS: Hemoglobin 9.8 g/dL (12.0-16.0)
--- NOTE | 2019-03-31 23:11 | CON ---
DATE OF CONSULTATION: 03/31/2019 REASON FOR CONSULTATION: Hematochezia. CONSULTING PROVIDER: Dr. Kris Fuentes. HISTORY OF PRESENT ILLNESS: The patient is a 73-year-old female with past medical history of diabetes, hypertension, hypothyroidism, coronary artery disease, cirrhosis, hemorrhoids, multiple colonic polyps, and recently diagnosed with DVT of the left lower extremity in addition to pneumonia, presenting with complaints of hematochezia. Per chart review, the patient was recently discharged from the hospital secondary to severe pneumonia with respiratory compromise that required mechanical ventilation. During the course of that admission, she was also diagnosed with a DVT of the left lower extremity with an occlusive thrombus of the left posterior tibial vein. She ultimately responded to therapy, was ultimately discharged to home. Since that time, the patient was in her usual state of health until approximately yesterday when she began having the appearance of hematochezia characterized as "dark salmeron red" blood per rectum, having approximately 4 to 5 bloody bowel movements over the course of 24 hours. Approximately 2 or 3 of those bowel movements were consisting of nothing, but grossly bloody bowel movements, but was otherwise associated with passage of stool. During this time, she also complained of increased lower abdominal discomfort, but not pain per se with no clear alleviating or exacerbating factors. She also endorses sometimes constipation where she was normally having approximately 1 bowel movement every 1 to 2 days that was more solid in consistency and did require intermittent straining in order to facilitate defecation. Otherwise, the patient denied any nausea, vomiting, fevers, chills, melena, hematemesis, odynophagia, or weight loss. Of note, the patient was placed on Eliquis as part of treatment for her deep vein thrombosis of the left lower extremity and has been on this medication until yesterday morning, at which point the appearance of the bloody bowel movements prompted her to stop taking this medication. Also of note, she did have a colonoscopy performed in July 2016 with multiple polyps removed at that time as well as pancolonic diverticulosis. REVIEW OF SYSTEMS: A 10-category review of systems was obtained with all responses negative except for the pertinent positives as listed in HPI. PAST MEDICAL HISTORY: As per HPI. PAST SURGICAL HISTORY: Tonsillectomy, right ovarian cystectomy, back surgery, and colonoscopy. FAMILY HISTORY: Denies any GI malignancies. SOCIAL HISTORY: Denies any tobacco, alcohol, or illicit drug use. OUTPATIENT MEDICATIONS: Reviewed. ALLERGIES: CODEINE, PENICILLIN, IODINE, BETADINE, AND SULFA. PHYSICAL EXAMINATION: VITAL SIGNS: Temperature 97.9, pulse 65, blood pressure 184/78, respiratory rate 16, saturating 99% on room air. GENERAL: The patient is in no acute distress and resting comfortably in bed. Alert and oriented x4. HEENT: Normocephalic and atraumatic. NECK: Supple. No JVD or scleral icterus noted. CARDIOVASCULAR: Regular rate and rhythm with no discernible murmurs, gallops, or rubs. RESPIRATORY: Clear to auscultation bilaterally with no discernible wheezes or rales. ABDOMEN: Normoactive bowel sounds. Soft, nontender, nondistended. EXTREMITIES: No cyanosis, clubbing, or edema. LABORATORY DATA: CBC with a white blood cell count of 6.6, hemoglobin 9, hematocrit 27, platelets 100. Chemistry with a sodium of 141, potassium 4, chloride 113, CO2 of 19, BUN 15, creatinine 0.88, glucose 99, AST 25, ALT 18, alkaline phosphatase 158, total bilirubin 0.7. INR 2.0. IMAGING DATA: CT of the abdomen and pelvis was obtained on March 30, 2019, which showed a 2.8 cm gallstone without evidence of cholecystitis. There was also evidence of splenomegaly and splenic varices consistent with portal hypertension and a concurrent diagnosis of cirrhosis. A 1 cm ventral wall hernia was also seen with some mesenteric fat in it, but no evidence of strangulation. Otherwise, the colon appeared normal. ASSESSMENT AND PLAN: The patient is a 73-year-old female with past medical history of diabetes, hypertension, hypothyroidism, coronary artery disease, cirrhosis of the liver, hemorrhoids, multiple colonic polyps, and deep vein thrombosis, presenting with hematochezia. 1. Hematochezia. The patient is presenting with fairly acute onset of bright red blood per rectum that has been occurring over the last 24 to 48 hours. During the course of this hospitalization, she did have a more solid bowel movement earlier today that did not contain any blood. At this time, the more likely etiology would be bleeding within the colon that has been further exacerbated by the concurrent administration of Eliquis. Differential could include hemorrhoidal bleeding (most likely), diverticular bleeding, arteriovenous malformation, Dieulafoy lesion, stercoral colitis (especially with a history of constipation) and/or GI neoplasm (less likely given the colonoscopy findings from 2 years ago). RECOMMENDATIONS: 1. Would continue to trend her H and H and transfuse as necessary to maintain an H and H of 7/21. 2. Continue to monitor clinically for signs of active GI bleeding. 3. Would continue to hold any anticoagulation in light of a GI bleed. 4. We will place the patient on clear-liquid diet today with n.p.o. at midnight except for medications in preparation for colonoscopy tomorrow. 5. We will place the patient on the schedule tomorrow for colonoscopy for intraluminal evaluation. 6. The patient did express increased concern about tolerating the prep. If the patient is unable to tolerate the prep due to increased nausea and vomiting, could consider placement of an NG tube to facilitate consumption of the prep and adequate clearing of the colon for adequate visualization. 7. Cirrhosis. The patient is also presenting with recent imaging showing splenomegaly, splenic varices in addition to thrombocytopenia concerning for the presence of portal hypertension and concurrent presence of cirrhosis. At this time, it is unclear as to what the etiology is, but based on the patient's body habitus and other medical comorbidities, nonalcoholic steatohepatitis/nonalcoholic fatty liver disease is a more likely explanation. At this time, the patient is presenting with compensated disease with no discernible evidence for esophageal varices, hepatic encephalopathy, ascites, jaundice, or lower extremity edema. Calculation of her MELD score reveals a score 14 with Child-Neville classification A. CT scan for performed during this admission does not show any evidence of HCC, but does show cirrhotic morphology/change. RECOMMENDATIONS: 1. Would obtain repeat imaging of the liver every 6 months for evaluation of HCC. 2. Would consider obtaining an EGD during this admission for evaluation of esophageal varices. We will discuss with patient. 3. Colonoscopy as above. We will continue to follow. Please call with any questions. Job ID: [id number]
[2019-04-01] MEDS ORDERED: Lisinopril 10 MG TAB PO SCH (09:00)
[2019-04-01] MEDS ORDERED: PROPOFOL 200 MG/20 ML VIAL ONE (09:59)
[2019-04-01] MEDS ORDERED: Lidocaine 1% PF 5 ML VIAL ONE (09:59)
[2019-04-01] MEDS ORDERED: Fentanyl 100 MCG/2 ML VIAL ONE (12:10)
[2019-04-01] MEDS: Lisinopril 5 MG TAB PO SCH (12:28)
[2019-04-01] MEDS: Sodium Chloride 0.9% 1,000 ML IV SCH (12:28)
[2019-04-01] MEDS: AcetaZOLAMIDE 250 MG TAB PO SCH (12:28)
[2019-04-01] MEDS: Furosemide 40 MG TAB PO SCH (12:28)
[2019-04-01] MEDS: Levothyroxine 150 MCG TAB PO SCH (12:28)
--- NOTE | 2019-04-01 13:51 | OP ---
DATE OF PROCEDURE: 03/30/2019 PROCEDURE PERFORMED: Colonoscopy. PREMEDICATION: Given by Anesthesiology Department. PREPROCEDURE DIAGNOSIS: Hematochezia/rectal bleeding, on Eliquis taken for deep venous thrombosis. POSTPROCEDURE DIAGNOSES: 1. External and internal hemorrhoids. 2. Diverticulosis coli, mostly in the sigmoid. 3. Otherwise, normal colon exam. DESCRIPTION OF PROCEDURE: Written consents were obtained prior to procedure. After adequate sedation, rectal exam performed was normal except for findings of moderate external hemorrhoids. The endoscope was advanced to the cecum. The quality of the bowel prep was adequate. The ileocecal valve and appendiceal orifice were visualized, appeared normal. The ascending colon, hepatic flexure, and transverse colon appeared normal. From the splenic flexure on down to the rectosigmoid, scattered diverticula were noted mostly in the sigmoid area. There was no other abnormality seen. Retroflexion in the rectal vault demonstrated moderate internal hemorrhoids. ASSESSMENT: 1. External and internal hemorrhoids, likely source of rectal bleeding. 2. Left-sided diverticulosis coli. 3. Otherwise, normal colon exam. RECOMMENDATIONS: 1. The patient can resume Eliquis. 2. The patient can be discharged home from GI standpoint. Job ID: [id number]
--- NOTE | 2019-04-01 13:56 | OP ---
DATE OF PROCEDURE: 03/30/2019 PROCEDURE PERFORMED: Esophagogastroduodenoscopy with snare polypectomy. PREMEDICATION: Given by Anesthesiology Department. PREPROCEDURE DIAGNOSES: 1. Cirrhosis, on CT. 2. Screening for varices. POSTPROCEDURE DIAGNOSES: 1. Two gastric polyps, removed. 2. Otherwise, normal upper endoscopy. DESCRIPTION OF PROCEDURE: Written consents were obtained prior to procedure. After adequate sedation, forward-viewing endoscope was advanced down the stomach under direct vision to the second portion of duodenum. The duodenum and the bulb appeared normal. The pylorus was patent. Two gastric polyps measuring approximately 5 mm each were noted in the distal greater curvature and proximal lesser curvature in the mid gastric body. Both of these polyps were removed with snare electrocautery with good hemostasis and were retrieved. The antrum, body, fundus, and cardia appeared normal, otherwise. Retroflexion did not show any varices. There was no mucosal change to suggest hypertensive portal gastropathy. The GE junction was located at 38 cm. The Z-line was regular. The lower, mid, and upper esophagus appeared normal. There was no esophageal varices seen. ASSESSMENT: 1. No portal hypertensive gastropathy changes. 2. No varices. 3. Two gastric polyps removed. RECOMMENDATION: Await biopsy results. Job ID: [id number]
[2019-04-01 15:25] LABS: Ferritin 24.59 ng/mL (10-291)
[2019-04-01 15:27] LABS: ALT (SGPT) 21 U/L (8-55); AST (SGOT) 39 U/L (5-34); Albumin 3.7 g/dL (3.4-4.8); Alkaline Phosphatase 166 U/L (40-110); Anion Gap 13 mmol/L (10-20); BUN (Urea Nitrogen) 9 mg/dL (9.8-20.1); Bilirubin, Total 0.8 mg/dL (0.2-1.2); Calc. Creatinine Clearance 105 mL/min (70-130); Calcium 9.8 mg/dL (7.8-10.44); Carbon Dioxide 18 mmol/L (23-31); Chloride 111 mmol/L (98-107); Estimated GFR-MDRD 70; Globulin 3.6 g/dL (2.4-3.5); Glucose 111 mg/dL (83-110); Iron 57 ug/dL (50-170); Iron Binding Capacity, Total 361 mcg/dL (265-497); Potassium 3.5 mmol/L (3.5-5.1); Protein, Total 7.3 g/dL (6.0-8.3); Sodium 138 mmol/L (136-145)
[2019-04-01 16:06] VITALS: BP 175/72; TEMP 98.8
[2019-04-01 16:22] LABS: HBSAg Index 0.29 S/CO (0-0.99); Hep B Surf Ag Non-Reactive S/CO (NonReactive)
[2019-04-01 16:23] LABS: HBSAB Concentration 2.16 mIU/mL; Hep B Surf AB Non-Reactive (NonReactive); Hep C IgG Ab Non-Reactive (NonReactive); Hep C Index 0.09 S/CO (0-0.79)
[2019-04-01 18:13] LABS: Hemoglobin 10.1 g/dL (12.0-16.0); Mean Corpuscular HGB CONC 32.4 g/dL (32.0-36.0); Mean Corpuscular Hemoglobin 29.2 pg (27.0-31.0); Mean Corpuscular Volume 90.2 fL (78.0-98.0); Mean Platelet Volume 8.2 fL (7.4-10.4); Platelet Count 93 thou/uL (130-400); RBC Distribution Width 16.9 % (11.5-14.5); Red Blood Cell (RBC) Count 3.44 mill/uL (4.20-5.40); White Blood Cell (WBC) Count 3.8 thou/uL (4.8-10.8)
[2019-04-01 18:14] LABS: #Eosinphils 0.1 thou/uL (0.0-0.7); #Lymphocytes 0.6 thou/uL (1.20-3.40); #Monocytes 0.3 thou/uL (0.11-0.59); #Neutrophils 2.8 thou/uL (1.40-6.50); %Basophils 0.3 % (0.0-1.0); %Eosinophils 2.4 % (0.0-10.0); %Lymphocytes 16.1 % (21.0-51.0); %Monocytes 7.4 % (0.0-10.0); %Neutrophils 73.9 % (42.0-75.0)
[2019-04-01] MEDS: Acetaminophen 325 MG TAB PO PRN (18:18)
--- NOTE | 2019-04-03 07:55 | DIS ---
DATE OF ADMISSION: 03/30/2019 DATE OF DISCHARGE: 04/01/2019 DISCHARGE DIAGNOSES: 1. Lower GI bleed, presumably secondary to hemorrhoids. 2. Mild left upper quadrant abdominal pain. 3. Gastric polyps. 4. Diverticulosis. 5. Coagulopathy. 6. Cirrhosis, unclear etiology. 7. Lactic acidosis, improved. 8. Hypercalcemia, resolved. 9. Thrombocytopenia, presumed secondary to the cirrhosis. 10. Hypothyroidism. 11. Diabetes. 12. Left lower extremity deep vein thrombosis found on previous admission result on ultrasound. 13. Morbid obesity. 14. History of mild to moderate tricuspid regurgitation. HISTORY OF PRESENT ILLNESS: This patient is a 73-year-old female with a history of prior left lower extremity DVT for which she has been on Eliquis. She also at the time of that admission was noted to have an INR prior to treatment of 1.[address] scan imaging consistent with cirrhosis. This had not been significantly evaluated and was felt most likely to be due to fatty liver disease and her diabetes and obesity. The patient presented to the hospital on this occasion reporting some left upper quadrant abdominal discomfort associated with some passage of blood in her stools. Hemoglobin at that time was 10.2, BUN and creatinine were normal. Calcium slightly elevated at 10.5. INR was 2.[address] abdomen and pelvis showed no evidence of any intraabdominal or pelvic acute abnormalities. HOSPITAL COURSE: The patient was placed on observation. She had her Eliquis discontinued. She received some IV fluids. Her initial lactic acid was slightly elevated, the repeat was showing improvement. She had her hemoglobins followed and there was not a significant drop. She had a consultation by GI, who performed EGD and colonoscopy. She did have 2 gastric polyps and some hemorrhoids. The hemorrhoids were felt to be the source of the bleeding. Otherwise, colonoscopy was unremarkable. Also, an extensive laboratory workup was ordered in order to investigate her cirrhosis. The patient's left lower extremity was ultrasounded again to assess for the presence of the partially occlusive DVT in the popliteal vein that had been present before. On this occasion, there was no evidence of any DVT. Therefore, in light of her bleeding and the resolution of the DVT, I had a long conversation with the patient regarding options, which included discontinuation of the Eliquis or continued Eliquis for another month at a lower dose and ultimately decided to discontinue the Eliquis entirely at this time with the patient's hemoglobin being stable and her calcium improved, lactic acidosis improving, and she was felt to be stable for discharge to home. Of note, the lab values of interest include a repeat calcium of 9.8. Her iron level was 57, TIBC was 361, percent saturation was 13%, and ferritin was 24.59. PHYSICAL EXAMINATION: VITAL SIGNS: On the day of discharge, temperature is 98, pulse 83, respirations 20, O2 saturation 100% on room air, BP ranged from 150/63 to 175/72. She was awake and alert. HEART: Regular rate and rhythm. LUNGS: Clear. ABDOMEN: Soft, nontender, and nondistended with no hepatosplenomegaly palpable. EXTREMITIES: Had no edema. DISPOSITION: The patient is discharged to home. ACTIVITY: As tolerated. DIET: She will be on a heart healthy diet. DISCHARGE MEDICATIONS: 1. She will be on lisinopril 10 mg daily prescribed as a new medication. 2. She will continue with metformin 1000 mg b.i.d. 3. Verapamil 100 mg daily. 4. Levothyroxine 150 mcg daily. 5. Tramadol 1 p.o. daily as needed. 6. Atorvastatin 10 mg at bedtime. 7. Acetazolamide 500 mg daily. 8. Potassium 20 mEq daily. 9. Lasix 20 mg daily. 10. She will discontinue the 5 mg dose of lisinopril and the Eliquis. FOLLOWUP: She will follow up with Dr. Cindi Boyd in [address] Adam in 7 days as well to discuss the results of her cirrhosis lab workup and the results of the gastric polyp. She can return to the hospital at any time should she have the need to do so. Job ID: [id number]
== END 2019-04-01 18:22 | disposition home health service (06) ==
LOC: ERS 13:58 → 2SW 21:18
PROVIDERS: ADMIT Family Medicine; ATTEND Family Medicine
PROC: 0DJD8ZZ Inspection of Lower Intestinal Tract, Via Natural or Artificial Opening Endoscopic (ICD-10-PCS; principal; 2019-03-30)
PROC: 0DB68ZX Excision of Stomach, Via Natural or Artificial Opening Endoscopic, Diagnostic (ICD-10-PCS; 2019-03-30)
DX: K31.7 Polyp of stomach and duodenum (principal); K57.31 Diverticulosis of large intestine without perforation or abscess with bleeding; K64.4 Residual hemorrhoidal skin tags; K64.8 Other hemorrhoids; K74.60 Unspecified cirrhosis of liver; I10 Essential (primary) hypertension; E03.9 Hypothyroidism, unspecified; I25.10 Atherosclerotic heart disease of native coronary artery without angina pectoris; E11.10 Type 2 diabetes mellitus with ketoacidosis without coma; E83.52 Hypercalcemia; D69.6 Thrombocytopenia, unspecified; I07.1 Rheumatic tricuspid insufficiency; I25.2 Old myocardial infarction; J44.9 Chronic obstructive pulmonary disease, unspecified; E66.01 Morbid (severe) obesity due to excess calories; Z68.38 Body mass index [BMI] 38.0-38.9, adult; Z86.010 Personal history of colon polyps; Z86.718 Personal history of other venous thrombosis and embolism; Z79.84 Long term (current) use of oral hypoglycemic drugs; Z79.899 Other long term (current) drug therapy; Z88.0 Allergy status to penicillin; Z88.2 Allergy status to sulfonamides; Z88.5 Allergy status to narcotic agent; Z88.8 Allergy status to other drugs, medicaments and biological substances
CPT/HCPCS: 43251; 45378; 74177; 80053 ×2; 81003; 82103; 82274; 82390; 82728; 82784 ×3; 82962 ×3; 83516; 83540; 83550; 83605; 83690; 83880; 84484; 85014 ×3; 85018 ×3; 85025 ×2; 85610; 85730; 86706; 86803; 86850; 86900; 86901; 87340; 88305; 88312; 93005; 93971; 96361 ×2; 96374; 99285; G0378 ×4; 36415; 36416; C9113; J2001; J2704; J3010; Q9967

== ENCOUNTER 2019-07-01 07:35 | Day surgery (SDC) | payer MEDICARE, MEDICAID ==
[2019-06-30 14:52] VITALS: BMI 36.1
[2019-07-01 08:11] LABS: INR-International Normal Ratio 1.1; PTT 33.7 SEC (22.9-36.1); Prothrombin Time 14.4 SEC (12.0-14.7)
[2019-07-01 08:15] LABS: #Eosinphils 0.2 thou/uL (0.0-0.7); #Lymphocytes 1.3 thou/uL (1.20-3.40); #Monocytes 0.5 thou/uL (0.11-0.59); #Neutrophils 3.4 thou/uL (1.40-6.50); %Basophils 0.3 % (0.0-1.0); %Eosinophils 3.7 % (0.0-10.0); %Lymphocytes 23.6 % (21.0-51.0); %Monocytes 8.4 % (0.0-10.0); Mean Corpuscular HGB CONC 32.1 g/dL (32.0-36.0); Mean Corpuscular Hemoglobin 28.9 pg (27.0-31.0); Mean Corpuscular Volume 89.9 fL (78.0-98.0); Mean Platelet Volume 8.1 fL (7.4-10.4); Platelet Count 65 thou/uL (130-400); RBC Distribution Width 14.3 % (11.5-14.5); Red Blood Cell (RBC) Count 3.48 mill/uL (4.20-5.40); White Blood Cell (WBC) Count 5.3 thou/uL (4.8-10.8)
[2019-07-01] MEDS ORDERED: Sodium Bicarbonate 2.5 MEQ/5 ML VIAL ONE (08:35)
[2019-07-01] MEDS ORDERED: Fentanyl 100 MCG/2 ML VIAL ONE (08:35)
[2019-07-01] MEDS ORDERED: Midazolam HCl 2 mg/2 ml Vial ONE (08:35)
[2019-07-01] MEDS ORDERED: Lidocaine 1% PF 5 ML VIAL ONE (08:35)
[2019-07-01 13:03] VITALS: BP 157/64; TEMP 97.8
== END 2019-07-01 10:15 | disposition home or self-care (01) ==
LOC: ULT 07:35
PROVIDERS: ATTEND Internal Medicine
DX: K74.60 Unspecified cirrhosis of liver (principal); G89.29 Other chronic pain; R10.31 Right lower quadrant pain; I10 Essential (primary) hypertension; I25.2 Old myocardial infarction; E78.00 Pure hypercholesterolemia, unspecified; E07.9 Disorder of thyroid, unspecified; E66.9 Obesity, unspecified; Z68.36 Body mass index [BMI] 36.0-36.9, adult; Z79.899 Other long term (current) drug therapy; Z88.0 Allergy status to penicillin; Z88.2 Allergy status to sulfonamides; Z88.5 Allergy status to narcotic agent; Z88.8 Allergy status to other drugs, medicaments and biological substances; Z53.8 Procedure and treatment not carried out for other reasons
CPT/HCPCS: 36430; 85025; 85610; 85730; 86850; 86900; 86901; P9035; 36415; J2001; J2250; J3010

== ENCOUNTER 2019-07-03 07:33 | Day surgery (SDC) | payer MEDICARE, MEDICAID ==
[2019-07-02 14:47] VITALS: BMI 36.1
[2019-07-03] MEDS ORDERED: Sodium Bicarbonate 2.5 MEQ/5 ML VIAL ONE (09:11)
[2019-07-03] MEDS ORDERED: Fentanyl 100 MCG/2 ML VIAL ONE (09:11)
[2019-07-03] MEDS ORDERED: Lidocaine 1% PF 5 ML VIAL ONE (09:11)
[2019-07-03] MEDS ORDERED: Midazolam HCl 2 mg/2 ml Vial ONE (09:11)
--- NOTE | 2019-07-03 11:54 | ULT ---
Sonographic guided liver biopsy Conscious sedation: At least 30 minutes spent with the patient for conscious sedation. HISTORY: Cirrhosis. Liver disease. FINDINGS: After explaining the procedure and answering all questions, sonographic survey shows a safe approach to the left liver lobe. Sterile technique, buffered local anesthesia, sonographic guidance, conscious sedation, and an anterior subxiphoid approach were used to carefully advance a 17 -gauge trocar needle into the medial segment left liver lobe. Position was confirmed with sonography. A total of 2 18-gauge core biopsy specimens were obtained and eventually submitted to pathology for e valuation. Needle was removed. No evidence of complication. Patient tolerated the procedure well and was eventually dismissed in good condition. IMPRESSION: Technically successful sonographic guided random hepatic biopsy. Pathology is pending.
== END 2019-07-03 12:10 | disposition home or self-care (01) ==
LOC: ULT 07:33
PROVIDERS: ATTEND Internal Medicine
PROC: 0FB23ZX Excision of Left Lobe Liver, Percutaneous Approach, Diagnostic (ICD-10-PCS; principal; 2019-07-03)
DX: K74.60 Unspecified cirrhosis of liver (principal); K74.0 Hepatic fibrosis; I10 Essential (primary) hypertension; E11.9 Type 2 diabetes mellitus without complications; J44.9 Chronic obstructive pulmonary disease, unspecified; E78.5 Hyperlipidemia, unspecified; E03.9 Hypothyroidism, unspecified; I25.10 Atherosclerotic heart disease of native coronary artery without angina pectoris; I25.2 Old myocardial infarction; Z79.899 Other long term (current) drug therapy; Z86.718 Personal history of other venous thrombosis and embolism; Z88.0 Allergy status to penicillin; Z88.2 Allergy status to sulfonamides; Z88.3 Allergy status to other anti-infective agents; Z88.5 Allergy status to narcotic agent; Z91.048 Other nonmedicinal substance allergy status
CPT/HCPCS: 47000; 76942; 88307; 88313; J2001; J2250; J3010

== ENCOUNTER 2021-09-22 23:23 | Emergency (ER) | payer MEDICARE, MEDICAID | END 2021-09-23 09:04 | LOC: ERS 23:23 | DX: N39.0 Urinary tract infection, site not specified (principal); L03.115 Cellulitis of right lower limb; R53.1 Weakness; E11.9 Type 2 diabetes mellitus without complications; J44.9 Chronic obstructive pulmonary disease, unspecified; M19.90 Unspecified osteoarthritis, unspecified site; E66.9 Obesity, unspecified; Z68.45 Body mass index [BMI] 70 or greater, adult; Z79.84 Long term (current) use of oral hypoglycemic drugs; Z79.899 Other long term (current) drug therapy; M79.604 Pain in right leg; M79.605 Pain in left leg ==

== ENCOUNTER 2022-03-21 18:47 | Inpatient (IN) | payer MEDICARE, MEDICAID ==
[2022-03-21 20:04] LABS: ALT (SGPT) 23 U/L (8-55); AST (SGOT) 45 U/L (5-34); Albumin 3.4 g/dL (3.4-4.8); Alkaline Phosphatase 84 U/L (40-110); Anion Gap 20 mmol/L (10-20); BUN (Urea Nitrogen) 30 mg/dL (9.8-20.1); Bilirubin, Total 1.4 mg/dL (0.2-1.2); Calc. Creatinine Clearance 0 mL/min (70-130); Calcium 9.4 mg/dL (7.8-10.44); Chloride 119 mmol/L (98-107); Estimated GFR 24; Globulin 2.6 g/dL (2.4-3.5); Glucose 122 mg/dL (83-110); Potassium 5.3 mmol/L (3.5-5.1); Sodium 143 mmol/L (136-145)
[2022-03-21 20:09] LABS: Carbon Dioxide 9 mmol/L (23-31)
[2022-03-21 20:33] LABS: Bilirubin 1+ (Negative); Blood, Urine Negative (Negative); Clarity Turbid (Clear); Glucose, Urine (Dipstick) Normal (Negative); Ketone, Urine Trace mg/dL (Negative); Leukocyte Negative Leu/uL (Negative); Nitrite Negative (Negative); Protein, Urine (Dipstick) 70 mg/dL (Neg-Trace); RBC/HPF 0-3 HPF (0-3); Specific Gravity, Urine 1.026 (1.002-1.036); Squamous Epithelial 0-3 HPF (0-3); Urobilinogen 6 mg/dL (Less than 2); WBC/HPF 0-3 HPF (0-3); pH, Urine 5.5 (5.0-9.0)
[2022-03-21] MEDS ORDERED: Vancomycin 1 GM/200 ML (FROZEN) BAG ONE (20:35)
[2022-03-21 20:36] LABS: Bacteria/HPF 1+ HPF (None Seen)
[2022-03-21 20:42] LABS: Hemoglobin 9.8 g/dL (12.0-16.0); Mean Corpuscular HGB CONC 32.6 g/dL (32.0-36.0); Mean Corpuscular Hemoglobin 30.9 pg (27.0-31.0); RBC Distribution Width 16.9 % (11.5-14.5); Red Blood Cell (RBC) Count 3.17 mill/uL (4.20-5.40); White Blood Cell (WBC) Count 7.3 10x3/uL (4.8-10.8)
[2022-03-21 20:48] LABS: #Lymphocytes 0.9 thou/uL (1.20-3.40); #Monocytes 0.9 thou/uL (0.11-0.59); #Neutrophils 5.4 thou/uL (1.40-6.50); %Basophils 0.1 % (0.0-1.0); %Eosinophils 0.2 % (0.0-10.0); %Monocytes 12.9 % (0.0-10.0); %Neutrophils 74.7 % (42.0-75.0)
[2022-03-21 21:01] LABS: Anisocytosis SLIGHT = 6-15 cells (100X) (0-5/hpf); MDiff Complete? YES; Mean Platelet Volume 8.4 fL (7.4-10.4); Platelet Count 55 10x3/uL (130-400); Platelet Morphology Comment Appears Decreased
[2022-03-21] MEDS ORDERED: cefTRIAXone\\ROCEPHIN 1 GM VIAL ONE (21:42)
[2022-03-21] MEDS ORDERED: Nystatin Powder 15 GM BOT TOP PRN (22:14)
[2022-03-21 22:42] LABS: Creatinine, Urine 176.62 mg/dL (47-110)
[2022-03-21] MEDS ORDERED: HumaLOG 300 UNITS/3 ML VIAL SC PRN ×2 (22:53)
[2022-03-21] MEDS ORDERED: Dextrose 5% in Water 1,000 ML IV PRN (22:53)
[2022-03-21] MEDS ORDERED: Dextrose 50% Abboject 50 ML SYRINGE SLOW IVP PRN (22:53)
[2022-03-21 23:22] LABS: Hemoglobin A1c 4.7 % (4.0-6.0)
[2022-03-21 23:27] LABS: INR-International Normal Ratio 1.5; PTT 35.6 sec (22.9-36.1); Prothrombin Time 18.3 sec (12.0-14.7)
[2022-03-21 23:31] LABS: Lactic Acid 3.8 mmol/L (0.5-2.2)
[2022-03-21 23:36] LABS: Anion Gap 17 mmol/L (10-20); BUN (Urea Nitrogen) 33 mg/dL (9.8-20.1); Calc. Creatinine Clearance 0 mL/min (70-130); Calcium 9.9 mg/dL (7.8-10.44); Carbon Dioxide 13 mmol/L (23-31); Chloride 117 mmol/L (98-107); Estimated GFR 25; Glucose 120 mg/dL (83-110); Magnesium 1.8 mg/dL (1.6-2.6); Potassium 4.5 mmol/L (3.5-5.1); Sodium 142 mmol/L (136-145)
[2022-03-22] MEDS: Lactated Ringer's 1,000 ML IV SCH ×4 (01:18→17:00)
[2022-03-22 05:01] LABS: ALT (SGPT) 26 U/L (8-55); AST (SGOT) 43 U/L (5-34); Albumin 3.2 g/dL (3.4-4.8); Alkaline Phosphatase 80 U/L (40-110); Anion Gap 13 mmol/L (10-20); BUN (Urea Nitrogen) 32 mg/dL (9.8-20.1); Bilirubin, Total 1.2 mg/dL (0.2-1.2); Calc. Creatinine Clearance 41 mL/min (70-130); Calcium 9.7 mg/dL (7.8-10.44); Carbon Dioxide 15 mmol/L (23-31); Chloride 119 mmol/L (98-107); Estimated GFR 30; Globulin 2.6 g/dL (2.4-3.5); Glucose 98 mg/dL (83-110); Potassium 4.2 mmol/L (3.5-5.1); Protein, Total 5.8 g/dL (5.8-8.1); Sodium 143 mmol/L (136-145)
[2022-03-22 05:51] LABS: Anisocytosis SLIGHT = 6-15 cells (100X) (0-5/hpf); Band 2 % (5-11); Hemoglobin 9.1 g/dL (12.0-16.0); Hypochromia SLIGHT = 6-15 cells (100X) (0-5/hpf); Lymphocytes 12 % (21-51); MDiff Complete? YES; Mean Corpuscular HGB CONC 31.5 g/dL (32.0-36.0); Mean Corpuscular Hemoglobin 30.4 pg (27.0-31.0); Mean Corpuscular Volume 96.2 fl (78.0-98.0); Mean Platelet Volume 9.1 fL (7.4-10.4); Monocytes 11 % (0-10); Neutrophil 75 % (42-75); Platelet Count 60 10x3/uL (130-400); Platelet Morphology Comment Appears Decreased; Polychromasia SLIGHT = 2-3 cells (100X) (0-2/hpf); RBC Distribution Width 17.1 % (11.5-14.5); Red Blood Cell (RBC) Count 2.99 mill/uL (4.20-5.40); White Blood Cell (WBC) Count 6.3 10x3/uL (4.8-10.8)
[2022-03-22] MEDS: Levothyroxine Sodium 100 MCG TAB PO SCH (05:58)
[2022-03-22] MEDS ORDERED: Enoxaparin Sodium 30 MG/0.3 ML SYRINGE SC SCH (09:00)
[2022-03-22 09:01] LABS: Free T4 (Free Thyroxine) 0.68 ng/dL (0.70-1.48)
[2022-03-22] MEDS: Pantoprazole 40 MG VIAL IVP SCH (09:16)
[2022-03-22] MEDS ORDERED: Levothyroxine 100 MCG SDV IVP SCH (09:30)
[2022-03-22 10:14] LABS: Amphetamine Not Detected (NotDetected); Barbiturates Screen Not Detected (NotDetected); Benzodiazepine Screen Not Detected (NotDetected); Cocaine Metabolite Screen Not Detected (NotDetected); Methadone Not Detected (NotDetected); Methamphetamine Not Detected (NotDetected); Opiate Screen Not Detected (NotDetected); Oxycodone Screen Not Detected (NotDetected); Phencyclidine (PCP) Not Detected (NotDetected); THC/Cannabinoid Screen Not Detected (NotDetected); Tricyclic Screen Not Detected (NotDetected)
[2022-03-22] MEDS ORDERED: Verapamil 80 MG TAB PO SCH (12:00)
[2022-03-22] MEDS ORDERED: Furosemide 20 MG/2 ML VIAL SLOW IVP SCH (16:22)
[2022-03-22] MEDS: cefTRIAXone\\ROCEPHIN 1 GM in Sodium Chloride 0.9% 100 ML IVPB SCH (17:29)
[2022-03-23] MEDS: Levothyroxine Sodium 100 MCG TAB PO SCH (05:29)
[2022-03-23 05:30] LABS: Anion Gap 11 mmol/L (10-20); BUN (Urea Nitrogen) 26 mg/dL (9.8-20.1); Calc. Creatinine Clearance 62 mL/min (70-130); Calcium 9.3 mg/dL (7.8-10.44); Carbon Dioxide 18 mmol/L (23-31); Chloride 114 mmol/L (98-107); Estimated GFR 49; Glucose 124 mg/dL (83-110); Potassium 3.3 mmol/L (3.5-5.1); Sodium 140 mmol/L (136-145)
[2022-03-23 05:58] LABS: #Eosinphils 0.1 thou/uL (0.0-0.7); #Lymphocytes 0.6 thou/uL (1.20-3.40); #Monocytes 0.9 thou/uL (0.11-0.59); #Neutrophils 4.9 thou/uL (1.40-6.50); %Basophils 0.5 % (0.0-1.0); %Eosinophils 0.8 % (0.0-10.0); %Lymphocytes 9.9 % (21.0-51.0); %Monocytes 13.7 % (0.0-10.0); %Neutrophils 75.1 % (42.0-75.0); Hemoglobin 9.5 g/dL (12.0-16.0); Mean Corpuscular HGB CONC 34.3 g/dL (32.0-36.0); Mean Corpuscular Hemoglobin 33.9 pg (27.0-31.0); Mean Corpuscular Volume 98.8 fl (78.0-98.0); Mean Platelet Volume 8.5 fL (7.4-10.4); Platelet Count 54 10x3/uL (130-400); RBC Distribution Width 17.3 % (11.5-14.5); Red Blood Cell (RBC) Count 2.81 mill/uL (4.20-5.40); White Blood Cell (WBC) Count 6.5 10x3/uL (4.8-10.8)
[2022-03-23] MEDS: Verapamil 80 MG TAB PO SCH (09:22)
[2022-03-23] MEDS: Pantoprazole 40 MG VIAL IVP SCH (09:23)
[2022-03-23] MEDS ORDERED: Acetaminophen 325 MG/10.15 ML UDCUP PO PRN (12:01)
[2022-03-23] MEDS: cefTRIAXone\\ROCEPHIN 1 GM in Sodium Chloride 0.9% 100 ML IVPB SCH (16:58)
[2022-03-24] MEDS: Levothyroxine Sodium 100 MCG TAB PO SCH (06:02)
[2022-03-24] MEDS: Pantoprazole 40 MG VIAL IVP SCH (09:48)
[2022-03-24] MEDS: Verapamil 80 MG TAB PO SCH (09:49)
[2022-03-24] MEDS: cefTRIAXone\\ROCEPHIN 1 GM in Sodium Chloride 0.9% 100 ML IVPB SCH (16:34)
[2022-03-25] MEDS: Levothyroxine Sodium 100 MCG TAB PO SCH (06:41)
[2022-03-25] MEDS: Verapamil 80 MG TAB PO SCH (08:31)
[2022-03-25] MEDS ORDERED: FLU VACC QS2022-23(65YR UP)/PF 240 MCG/0.7 ML SYRINGE IM ONE (09:00)
[2022-03-25] MEDS: Acetaminophen 325 MG TAB PO PRN (14:06)
[2022-03-25] MEDS: cefTRIAXone\\ROCEPHIN 1 GM in Sodium Chloride 0.9% 100 ML IVPB SCH (16:26)
[2022-03-26] MEDS: Levothyroxine Sodium 100 MCG TAB PO SCH (06:17)
[2022-03-26] MEDS: Verapamil 80 MG TAB PO SCH (10:44)
[2022-03-26] MEDS ORDERED: Iopamidol 370 76% 100 ML VIAL ONE (11:44)
[2022-03-26] MEDS: Acetaminophen 325 MG TAB PO PRN (16:13)
[2022-03-27 05:03] LABS: #Eosinphils 0.2 thou/uL (0.0-0.7); #Lymphocytes 0.8 thou/uL (1.20-3.40); #Monocytes 0.3 thou/uL (0.11-0.59); #Neutrophils 1.4 thou/uL (1.40-6.50); %Basophils 0.4 % (0.0-1.0); %Eosinophils 8.3 % (0.0-10.0); %Lymphocytes 30.5 % (21.0-51.0); %Monocytes 9.8 % (0.0-10.0); Hemoglobin 9.7 g/dL (12.0-16.0); Mean Corpuscular HGB CONC 33.3 g/dL (32.0-36.0); Mean Corpuscular Hemoglobin 31.6 pg (27.0-31.0); Mean Corpuscular Volume 94.8 fl (78.0-98.0); Mean Platelet Volume 8.5 fL (7.4-10.4); Platelet Count 61 10x3/uL (130-400); RBC Distribution Width 16.8 % (11.5-14.5); Red Blood Cell (RBC) Count 3.06 mill/uL (4.20-5.40); White Blood Cell (WBC) Count 2.7 10x3/uL (4.8-10.8)
[2022-03-27 05:27] LABS: Anion Gap 9 mmol/L (10-20); BUN (Urea Nitrogen) 14 mg/dL (9.8-20.1); Calc. Creatinine Clearance 94 mL/min (70-130); Calcium 9.6 mg/dL (7.8-10.44); Carbon Dioxide 24 mmol/L (23-31); Chloride 112 mmol/L (98-107); Estimated GFR 85; Glucose 121 mg/dL (83-110); Potassium 3.6 mmol/L (3.5-5.1); Sodium 141 mmol/L (136-145)
[2022-03-27] MEDS: Levothyroxine Sodium 100 MCG TAB PO SCH (06:45)
[2022-03-27] MEDS: Verapamil 80 MG TAB PO SCH (09:34)
[2022-03-28 04:49] LABS: #Eosinphils 0.3 thou/uL (0.0-0.7); #Lymphocytes 0.8 thou/uL (1.20-3.40); #Monocytes 0.3 thou/uL (0.11-0.59); #Neutrophils 1.3 thou/uL (1.40-6.50); %Basophils 1.2 % (0.0-1.0); %Eosinophils 11.7 % (0.0-10.0); %Lymphocytes 28.2 % (21.0-51.0); Hemoglobin 9.5 g/dL (12.0-16.0); Mean Corpuscular HGB CONC 32.1 g/dL (32.0-36.0); Mean Corpuscular Hemoglobin 30.7 pg (27.0-31.0); Mean Corpuscular Volume 95.7 fl (78.0-98.0); Mean Platelet Volume 8.6 fL (7.4-10.4); Platelet Count 68 10x3/uL (130-400); RBC Distribution Width 16.8 % (11.5-14.5); White Blood Cell (WBC) Count 2.8 10x3/uL (4.8-10.8)
[2022-03-28 05:03] LABS: Anion Gap 7 mmol/L (10-20); BUN (Urea Nitrogen) 14 mg/dL (9.8-20.1); Calc. Creatinine Clearance 95 mL/min (70-130); Calcium 9.2 mg/dL (7.8-10.44); Carbon Dioxide 25 mmol/L (23-31); Chloride 110 mmol/L (98-107); Estimated GFR 86; Glucose 114 mg/dL (83-110); Potassium 3.9 mmol/L (3.5-5.1); Sodium 138 mmol/L (136-145)
[2022-03-28] MEDS: Levothyroxine Sodium 100 MCG TAB PO SCH (06:14)
[2022-03-28] MEDS: Verapamil 80 MG TAB PO SCH (09:20)
[2022-03-28 11:01] LABS: Troponin I 0.333 ng/mL (< 0.028)
[2022-03-28 11:36] VITALS: BMI 31.6
[2022-03-28] MEDS ORDERED: Aspirin 325 mg Enteric Coated Tablet PO SCH (13:45)
[2022-03-29 05:03] LABS: #Eosinphils 0.3 thou/uL (0.0-0.7); #Lymphocytes 0.8 thou/uL (1.20-3.40); #Monocytes 0.5 thou/uL (0.11-0.59); #Neutrophils 2.6 thou/uL (1.40-6.50); %Basophils 0.1 % (0.0-1.0); %Lymphocytes 18.2 % (21.0-51.0); %Monocytes 12.1 % (0.0-10.0); %Neutrophils 62.6 % (42.0-75.0); Hemoglobin 9.2 g/dL (12.0-16.0); Mean Corpuscular HGB CONC 31.5 g/dL (32.0-36.0); Mean Corpuscular Hemoglobin 30.3 pg (27.0-31.0); Mean Corpuscular Volume 95.9 fl (78.0-98.0); Mean Platelet Volume 8.9 fL (7.4-10.4); Platelet Count 74 10x3/uL (130-400); RBC Distribution Width 16.8 % (11.5-14.5); Red Blood Cell (RBC) Count 3.05 mill/uL (4.20-5.40); White Blood Cell (WBC) Count 4.1 10x3/uL (4.8-10.8)
[2022-03-29 05:12] LABS: Anion Gap 8 mmol/L (10-20); BUN (Urea Nitrogen) 14 mg/dL (9.8-20.1); Calc. Creatinine Clearance 84 mL/min (70-130); Calcium 9.5 mg/dL (7.8-10.44); Carbon Dioxide 24 mmol/L (23-31); Chloride 111 mmol/L (98-107); Estimated GFR 75; Glucose 117 mg/dL (83-110); Potassium 3.9 mmol/L (3.5-5.1); Sodium 139 mmol/L (136-145)
[2022-03-29 05:24] LABS: Troponin I 0.155 ng/mL (< 0.028)
[2022-03-29] MEDS: Levothyroxine Sodium 100 MCG TAB PO SCH (05:51)
[2022-03-29] MEDS: Verapamil 80 MG TAB PO SCH (09:56)
[2022-03-29] MEDS: Aspirin 325 mg Enteric Coated Tablet PO SCH (09:56)
[2022-03-30] MEDS: Levothyroxine Sodium 100 MCG TAB PO SCH (05:22)
[2022-03-30] MEDS: Verapamil 80 MG TAB PO SCH (10:31)
[2022-03-30] MEDS: Aspirin 325 mg Enteric Coated Tablet PO SCH (10:31)
[2022-03-30 16:38] VITALS: BP 142/66; TEMP 99.1
== END 2022-03-30 17:10 | DRG 682 ==
LOC: ERS 18:47 → 2NO 21:07 → OBSVTOIN 21:07
PROVIDERS: ADMIT Family Medicine; ATTEND Internal Medicine
DX: N17.9 Acute kidney failure, unspecified (principal); G93.41 Metabolic encephalopathy; I21.A1 Myocardial infarction type 2; E44.1 Mild protein-calorie malnutrition; J90 Pleural effusion, not elsewhere classified; E87.20 Acidosis, unspecified; D61.818 Other pancytopenia; Z20.822 Contact with and (suspected) exposure to COVID-19; N18.30 Chronic kidney disease, stage 3 unspecified; E11.22 Type 2 diabetes mellitus with diabetic chronic kidney disease; I12.9 Hypertensive chronic kidney disease with stage 1 through stage 4 chronic kidney disease, or unspecified chronic kidney disease; I25.10 Atherosclerotic heart disease of native coronary artery without angina pectoris; E86.0 Dehydration; E86.1 Hypovolemia; E87.5 Hyperkalemia; L30.4 Erythema intertrigo; D69.6 Thrombocytopenia, unspecified; D64.9 Anemia, unspecified; I48.91 Unspecified atrial fibrillation; E03.9 Hypothyroidism, unspecified; K74.60 Unspecified cirrhosis of liver; E66.9 Obesity, unspecified; J44.9 Chronic obstructive pulmonary disease, unspecified; M19.90 Unspecified osteoarthritis, unspecified site; R07.89 Other chest pain; K80.20 Calculus of gallbladder without cholecystitis without obstruction; R53.81 Other malaise; Z79.899 Other long term (current) drug therapy; Z79.890 Hormone replacement therapy; Z79.84 Long term (current) use of oral hypoglycemic drugs; Z79.82 Long term (current) use of aspirin; Z88.6 Allergy status to analgesic agent; Z88.0 Allergy status to penicillin; Z91.041 Radiographic dye allergy status; Z91.09 Other allergy status, other than to drugs and biological substances; Z88.2 Allergy status to sulfonamides; Z90.89 Acquired absence of other organs; Z59.00 Homelessness unspecified; Z68.31 Body mass index [BMI] 31.0-31.9, adult
CPT/HCPCS: 36415; 36416; 70450; 71275; 80048; 80053; 80306; 81003; 81015; 82140; 82570; 83036; 83605; 83735; 83880; 84300; 84439; 84443; 84481; 84484; 85025; 85379; 85610; 85730; 87040; 87086; 87811; 93005; 93010; 93306; 94640; 96365; 96375; C9113; J0696; J1815; J1940; J3370-JW; J3490; J7120; J7620; Q9967; U0003; U0005

== ENCOUNTER 2022-04-28 02:28 | Inpatient (IN) | payer MEDICARE, MEDICAID ==
[2022-04-28] MEDS ORDERED: Magnesium 2 GM/50 ML BAG (IN WATER) ONE (02:40)
[2022-04-28] MEDS ORDERED: methylPREDNISolone Sod Succ/PF 125 MG/2 ML VIAL ONE (02:40)
[2022-04-28 02:57] LABS: Actual Bicarbonate (HCO3a) 19.3 mEq/L (22-28); Analyzer IN Cardio ER; Base Excess (BEa) -9.8 mEq/L (-2.0 to +3.0); CO2 Tension 58.6 mmHg (35.0-45.0); Calcium, Ionized (arterial) 1.28 mmol/L (1.12-1.30); Carboxyhemoglobin (COHb) 0.2 gm% (0.0-3.0); O2 Tension (PaO2), arterial 87.9 mmHg (> 70.0); Potassium - ABG Lab 3.58 mmol/L (3.70-5.30)
[2022-04-28] MEDS ORDERED: Ketamine 50 MG/ML (10ML VIAL) ONE (03:08)
[2022-04-28] MEDS ORDERED: Rocuronium Bromide 10 MG/ML (10ML VIAL) ONE (03:12)
[2022-04-28] MEDS ORDERED: Propofol 1,000 MG/100 ML VIAL IV ONE (03:23)
[2022-04-28 03:48] LABS: ALT (SGPT) 10 U/L (8-55); AST (SGOT) 22 U/L (5-34); Albumin 3.5 g/dL (3.4-4.8); Alkaline Phosphatase 194 U/L (40-110); Anion Gap 18 mmol/L (10-20); BUN (Urea Nitrogen) 19 mg/dL (9.8-20.1); Bilirubin, Total 1.5 mg/dL (0.2-1.2); Calc. Creatinine Clearance 0 mL/min (70-130); Calcium 9.6 mg/dL (7.8-10.44); Carbon Dioxide 17 mmol/L (23-31); Chloride 109 mmol/L (98-107); Estimated GFR 63; Globulin 3.3 g/dL (2.4-3.5); Glucose 234 mg/dL (83-110); Magnesium 1.7 mg/dL (1.6-2.6); Potassium 3.8 mmol/L (3.5-5.1); Protein, Total 6.8 g/dL (5.8-8.1); Sodium 140 mmol/L (136-145)
[2022-04-28 04:02] LABS: Actual Bicarbonate (HCO3a) 19.3 mEq/L (22-28); Analyzer IN Cardio ER; Base Excess (BEa) -5.9 mEq/L (-2.0 to +3.0); CO2 Tension 37.1 mmHg (35.0-45.0); Calcium, Ionized (arterial) 1.26 mmol/L (1.12-1.30); Carboxyhemoglobin (COHb) 0.1 gm% (0.0-3.0); Hemoglobin (Hb) 8.6 g/dL (12.0-16.0); Potassium - ABG Lab 3.47 mmol/L (3.70-5.30); pH, Arterial 7.34 (7.35-7.45)
[2022-04-28 04:07] LABS: pH, Arterial 7.14 (7.35-7.45)
[2022-04-28 04:08] LABS: Puncture Site LRA
[2022-04-28 04:09] LABS: CKMB 2.1 ng/mL (0-6.6)
[2022-04-28 04:11] LABS: ALV-art Gradient 425.025 mmHg (0-20); Puncture Site LRA
[2022-04-28 04:37] LABS: Band 9 % (5-11); Hemoglobin 9.6 g/dL (12.0-16.0); Lymphocytes 15 % (21-51); MDiff Complete? YES; Mean Corpuscular HGB CONC 31.8 g/dL (32.0-36.0); Mean Corpuscular Hemoglobin 30.1 pg (27.0-31.0); Mean Corpuscular Volume 94.6 fl (78.0-98.0); Mean Platelet Volume 8.6 fL (7.4-10.4); Monocytes 8 % (0-10); Neutrophil 68 % (42-75); Platelet Count 162 10x3/uL (130-400); RBC Distribution Width 15.3 % (11.5-14.5); Red Blood Cell (RBC) Count 3.19 mill/uL (4.20-5.40)
[2022-04-28] MEDS ORDERED: Cefepime 2 GM VIAL ONE (04:43)
[2022-04-28] MEDS ORDERED: Aspirin 300 MG Suppository ONE (04:43)
[2022-04-28] MEDS ORDERED: Furosemide 40 MG/4 ML VIAL ONE (04:43)
[2022-04-28] MEDS ORDERED: Vancomycin 1.5 GRAM/300 ML BAG 1.5 GM in Premix Bag 1 BAG IVPB SCH (05:00)
[2022-04-28] MEDS ORDERED: Magnesium Sulfate 2 GM in Sodium Chloride 0.9% 100 ML IVPB SCH (05:15)
[2022-04-28] MEDS ORDERED: Ondansetron PF 4 MG/2 ML Vial IVP PRN (05:24)
[2022-04-28] MEDS ORDERED: Magnesium 2 GM/50 ML(in water) 2 GM in Premix Bag 1 BAG IVPB SCH (05:30)
[2022-04-28] MEDS ORDERED: Ventilator Sedation Protocol 1 EACH FS SCH (05:45)
[2022-04-28 05:53] LABS: Bacteria/HPF None Seen HPF (None Seen); Bilirubin Negative (Negative); Blood, Urine Negative (Negative); Clarity Clear (Clear); Glucose, Urine (Dipstick) 30 mg/dL (Negative); Ketone, Urine Negative (Negative); Leukocyte Negative Leu/uL (Negative); Nitrite Negative (Negative); Protein, Urine (Dipstick) 50 mg/dL (Neg-Trace); RBC/HPF 0-3 HPF (0-3); Specific Gravity, Urine 1.018 (1.002-1.036); Squamous Epithelial 0-3 HPF (0-3); WBC/HPF 0-3 HPF (0-3)
[2022-04-28] MEDS ORDERED: Midazolam HCl 2 mg/2 ml Vial SLOW IVP PRN (05:58)
[2022-04-28] MEDS ORDERED: methylPREDNISolone Sod Succ 40 MG VIAL IVP SCH (06:00)
[2022-04-28] MEDS ORDERED: Propofol BOLUS 1,000 MG/100 ML VIAL IV PRN (06:00)
[2022-04-28] MEDS ORDERED: Diltiazem 125 MG in Sodium Chloride 0.9% 100 ML IVPB SCH (06:00)
[2022-04-28] MEDS ORDERED: Morphine 4 MG/ML VIAL SLOW IVP PRN (06:00)
[2022-04-28 06:38] LABS: SARS-CoV-2 NAA Rapid Test Not Detected (NotDetected)
[2022-04-28 07:28] LABS: Troponin I 0.065 ng/mL (< 0.028)
[2022-04-28] MEDS ORDERED: Dextrose 50% Abboject 50 ML SYRINGE SLOW IVP PRN (07:32)
[2022-04-28] MEDS ORDERED: Dextrose 5% in Water 1,000 ML IV PRN (07:32)
[2022-04-28 07:41] LABS: Free T4 (Free Thyroxine) 0.98 ng/dL (0.70-1.48)
[2022-04-28] MEDS: Ipratropium/Albuterol 3 ML NEB NEB SCH ×5 (07:53→22:09)
[2022-04-28 08:00] LABS: Legionella Urinary Ag Negative (Negative); Strep pneumo Urine Ag NEGATIVE (NEGATIVE)
[2022-04-28] MEDS ORDERED: Vancomycin HCl 250 MG, Admixture Fee 1 EACH in Sodium Chloride 0.9% 100 ML IVPB SCH (08:00)
[2022-04-28 08:33] LABS: Lactic Acid 5.2 mmol/L (0.5-2.2)
[2022-04-28] MEDS: Famotidine 20 MG TAB PER TUBE SCH ×2 (09:13→20:45)
[2022-04-28 10:14] LABS: Troponin I 0.068 ng/mL (< 0.028)
[2022-04-28] MEDS: methylPREDNISolone Sod Succ 40 MG VIAL IVP SCH ×2 (12:10→18:03)
[2022-04-28] MEDS: HumaLOG 300 UNITS/3 ML VIAL SC PRN ×2 (12:23→18:27)
[2022-04-28] MEDS: Furosemide 40 MG/4 ML VIAL SLOW IVP SCH (13:54)
[2022-04-28] MEDS ORDERED: Furosemide 20 MG/2 ML VIAL SLOW IVP SCH (14:00)
[2022-04-28] MEDS ORDERED: FLU VACC QS2022-23(65YR UP)/PF 240 MCG/0.7 ML SYRINGE IM ONE (14:00)
[2022-04-28] MEDS: Cefepime 2 GM in Sodium Chloride 0.9% 100 ML IVPB SCH (18:03)
[2022-04-28] MEDS: Propofol 1,000 MG/100 ML VIAL IV PRN (20:45)
[2022-04-29] MEDS: methylPREDNISolone Sod Succ 40 MG VIAL IVP SCH ×4 (00:45→17:57)
[2022-04-29] MEDS: Ipratropium/Albuterol 3 ML NEB NEB SCH ×6 (03:11→22:29)
[2022-04-29 03:56] LABS: ALT (SGPT) 10 U/L (8-55); AST (SGOT) 14 U/L (5-34); Albumin 2.8 g/dL (3.4-4.8); Alkaline Phosphatase 120 U/L (40-110); Anion Gap 11 mmol/L (10-20); BUN (Urea Nitrogen) 27 mg/dL (9.8-20.1); Bilirubin, Total 1.1 mg/dL (0.2-1.2); Calc. Creatinine Clearance 76 mL/min (70-130); Calcium 9.4 mg/dL (7.8-10.44); Carbon Dioxide 23 mmol/L (23-31); Chloride 109 mmol/L (98-107); Estimated GFR 62; Globulin 2.7 g/dL (2.4-3.5); Glucose 156 mg/dL (83-110); Magnesium 1.7 mg/dL (1.6-2.6); Potassium 3.9 mmol/L (3.5-5.1); Protein, Total 5.5 g/dL (5.8-8.1); Sodium 139 mmol/L (136-145)
[2022-04-29 04:19] LABS: #Lymphocytes 0.3 thou/uL (1.20-3.40); #Monocytes 0.2 thou/uL (0.11-0.59); #Neutrophils 8.4 thou/uL (1.40-6.50); %Eosinophils 0.2 % (0.0-10.0); %Lymphocytes 3.4 % (21.0-51.0); %Monocytes 2.4 % (0.0-10.0); %Neutrophils 94.1 % (42.0-75.0); Hemoglobin 7.8 g/dL (12.0-16.0); Mean Corpuscular HGB CONC 32.6 g/dL (32.0-36.0); Mean Corpuscular Hemoglobin 30.4 pg (27.0-31.0); Mean Corpuscular Volume 93.1 fl (78.0-98.0); Mean Platelet Volume 9.3 fL (7.4-10.4); Platelet Count 66 10x3/uL (130-400); Platelet Morphology Comment Appears Decreased; RBC Distribution Width 15.5 % (11.5-14.5); Red Blood Cell (RBC) Count 2.56 mill/uL (4.20-5.40); White Blood Cell (WBC) Count 8.9 10x3/uL (4.8-10.8)
[2022-04-29] MEDS: Cefepime 2 GM in Sodium Chloride 0.9% 100 ML IVPB SCH (05:15)
[2022-04-29] MEDS: Furosemide 40 MG/4 ML VIAL SLOW IVP SCH ×2 (05:15→13:54)
[2022-04-29] MEDS: Propofol 1,000 MG/100 ML VIAL IV PRN (05:26)
[2022-04-29] MEDS ORDERED: VANCOMYCIN 1.75 GM/500 ML BAG 1.75 GM in Premix Bag 1 BAG IVPB SCH ×2 (06:00→08:00)
[2022-04-29 07:16] LABS: Actual Bicarbonate (HCO3a) 23.7 mEq/L (22-28); Base Excess (BEa) -0.7 mEq/L (-2.0 to +3.0); CO2 Tension 37.6 mmHg (35.0-45.0); Calcium, Ionized (arterial) 1.25 mmol/L (1.12-1.30); Carboxyhemoglobin (COHb) 0.9 gm% (0.0-3.0); Hemoglobin (Hb) 8.7 g/dL (12.0-16.0); O2 Tension (PaO2), arterial 119.2 mmHg (> 70.0); Potassium - ABG Lab 3.73 mmol/L (3.70-5.30); pH, Arterial 7.42 (7.35-7.45)
[2022-04-29 07:23] LABS: Puncture Site LRA
[2022-04-29] MEDS: Famotidine 20 MG TAB PER TUBE SCH (08:09)
[2022-04-29] MEDS: Pantoprazole 40 MG VIAL IVP SCH (09:03)
[2022-04-29] MEDS: Fentanyl CADD 100 ML IV SCH (09:16)
[2022-04-29] MEDS: HumaLOG 300 UNITS/3 ML VIAL SC PRN ×2 (16:15→22:05)
[2022-04-29] MEDS: Acetaminophen 325 MG TAB PER TUBE PRN (20:01)
[2022-04-30] MEDS: methylPREDNISolone Sod Succ 40 MG VIAL IVP SCH ×4 (00:15→17:18)
[2022-04-30] MEDS: Propofol 1,000 MG/100 ML VIAL IV PRN ×3 (00:15→16:16)
[2022-04-30] MEDS: Ipratropium/Albuterol 3 ML NEB NEB SCH ×6 (02:11→21:46)
[2022-04-30 04:32] LABS: #Lymphocytes 0.2 thou/uL (1.20-3.40); #Monocytes 0.3 thou/uL (0.11-0.59); #Neutrophils 6.5 thou/uL (1.40-6.50); %Eosinophils 0.1 % (0.0-10.0); %Lymphocytes 3.1 % (21.0-51.0); %Monocytes 3.8 % (0.0-10.0); Hemoglobin 7.6 g/dL (12.0-16.0); Mean Corpuscular HGB CONC 31.9 g/dL (32.0-36.0); Mean Corpuscular Volume 93.9 fl (78.0-98.0); Mean Platelet Volume 8.9 fL (7.4-10.4); Platelet Count 74 10x3/uL (130-400); Red Blood Cell (RBC) Count 2.53 mill/uL (4.20-5.40)
[2022-04-30 04:49] LABS: ALT (SGPT) Less than 7 U/L (8-55); AST (SGOT) 11 U/L (5-34); Albumin 2.7 g/dL (3.4-4.8); Alkaline Phosphatase 96 U/L (40-110); Anion Gap 10 mmol/L (10-20); BUN (Urea Nitrogen) 36 mg/dL (9.8-20.1); Bilirubin, Total 0.9 mg/dL (0.2-1.2); Calc. Creatinine Clearance 65 mL/min (70-130); Calcium 9.1 mg/dL (7.8-10.44); Carbon Dioxide 26 mmol/L (23-31); Chloride 106 mmol/L (98-107); Estimated GFR 52; Globulin 2.6 g/dL (2.4-3.5); Glucose 210 mg/dL (83-110); Potassium 3.4 mmol/L (3.5-5.1); Protein, Total 5.3 g/dL (5.8-8.1); Sodium 139 mmol/L (136-145)
[2022-04-30] MEDS: Furosemide 40 MG/4 ML VIAL SLOW IVP SCH ×2 (05:02→14:07)
[2022-04-30] MEDS: HumaLOG 300 UNITS/3 ML VIAL SC PRN ×4 (05:10→22:15)
[2022-04-30 07:48] LABS: Actual Bicarbonate (HCO3a) 28.9 mEq/L (22-28); Base Excess (BEa) 4.1 mEq/L (-2.0 to +3.0); CO2 Tension 44.7 mmHg (35.0-45.0); Calcium, Ionized (arterial) 1.27 mmol/L (1.12-1.30); Carboxyhemoglobin (COHb) 1.1 gm% (0.0-3.0); Hemoglobin (Hb) 7.7 g/dL (12.0-16.0); O2 Tension (PaO2), arterial 84.5 mmHg (> 70.0); Potassium - ABG Lab 3.25 mmol/L (3.70-5.30); pH, Arterial 7.43 (7.35-7.45)
[2022-04-30 07:49] LABS: ALV-art Gradient 144.825 mmHg (0-20); Puncture Site LRA
[2022-04-30] MEDS: Pantoprazole 40 MG VIAL IVP SCH (08:11)
[2022-04-30] MEDS ORDERED: Iopamidol-370 76% 500 ML 1 ML ONE (10:56)
[2022-05-01] MEDS: methylPREDNISolone Sod Succ 40 MG VIAL IVP SCH ×5 (01:36→23:04)
[2022-05-01] MEDS: Ipratropium/Albuterol 3 ML NEB NEB SCH ×6 (02:15→21:44)
[2022-05-01 03:59] LABS: #Lymphocytes 0.3 thou/uL (1.20-3.40); #Monocytes 0.3 thou/uL (0.11-0.59); #Neutrophils 5.8 thou/uL (1.40-6.50); %Eosinophils 0.2 % (0.0-10.0); %Lymphocytes 4.8 % (21.0-51.0); %Monocytes 4.8 % (0.0-10.0); %Neutrophils 90.3 % (42.0-75.0); Hemoglobin 8.2 g/dL (12.0-16.0); Mean Corpuscular HGB CONC 32.3 g/dL (32.0-36.0); Mean Corpuscular Hemoglobin 30.2 pg (27.0-31.0); Mean Corpuscular Volume 93.7 fl (78.0-98.0); Mean Platelet Volume 8.4 fL (7.4-10.4); Platelet Count 75 10x3/uL (130-400); RBC Distribution Width 14.9 % (11.5-14.5); White Blood Cell (WBC) Count 6.4 10x3/uL (4.8-10.8)
[2022-05-01 04:25] LABS: ALT (SGPT) 9 U/L (8-55); AST (SGOT) 10 U/L (5-34); Albumin 2.8 g/dL (3.4-4.8); Alkaline Phosphatase 105 U/L (40-110); Anion Gap 11 mmol/L (10-20); BUN (Urea Nitrogen) 46 mg/dL (9.8-20.1); Bilirubin, Total 0.9 mg/dL (0.2-1.2); Calc. Creatinine Clearance 76 mL/min (70-130); Carbon Dioxide 30 mmol/L (23-31); Chloride 107 mmol/L (98-107); Estimated GFR 63; Globulin 2.6 g/dL (2.4-3.5); Glucose 216 mg/dL (83-110); Magnesium 2.2 mg/dL (1.6-2.6); Potassium 3.6 mmol/L (3.5-5.1); Protein, Total 5.4 g/dL (5.8-8.1); Sodium 144 mmol/L (136-145)
[2022-05-01] MEDS: HumaLOG 300 UNITS/3 ML VIAL SC PRN ×4 (05:27→21:13)
[2022-05-01] MEDS: Furosemide 40 MG/4 ML VIAL SLOW IVP SCH ×2 (05:27→14:21)
[2022-05-01] MEDS: Propofol 1,000 MG/100 ML VIAL IV PRN ×2 (06:20→18:04)
[2022-05-01 08:39] LABS: Actual Bicarbonate (HCO3a) 28.5 mEq/L (22-28); Base Excess (BEa) 4.3 mEq/L (-2.0 to +3.0); CO2 Tension 41.1 mmHg (35.0-45.0); Calcium, Ionized (arterial) 1.23 mmol/L (1.12-1.30); Carboxyhemoglobin (COHb) 0.4 gm% (0.0-3.0); Hemoglobin (Hb) 9.1 g/dL (12.0-16.0); O2 Tension (PaO2), arterial 106.5 mmHg (> 70.0); pH, Arterial 7.46 (7.35-7.45)
[2022-05-01 08:40] LABS: ALV-art Gradient 127.325 mmHg (0-20); Puncture Site RRA
[2022-05-01] MEDS ORDERED: Fentanyl CADD 100 ML ONE (09:49)
[2022-05-01] MEDS: Fentanyl CADD 100 ML IV SCH (10:06)
[2022-05-01] MEDS: Pantoprazole 40 MG VIAL IVP SCH (10:06)
[2022-05-01] MEDS ORDERED: Docusate Sodium 100 MG/10 ML UDCUP PO PRN (13:14)
[2022-05-01] MEDS ORDERED: Polyethylene Glycol 3350 17 GM Packet PO PRN (13:15)
[2022-05-02] MEDS: Ipratropium/Albuterol 3 ML NEB NEB SCH ×6 (02:10→21:50)
[2022-05-02] MEDS: Propofol 1,000 MG/100 ML VIAL IV PRN (04:20)
[2022-05-02 05:22] LABS: Anion Gap 11 mmol/L (10-20); BUN (Urea Nitrogen) 51 mg/dL (9.8-20.1); Calc. Creatinine Clearance 80 mL/min (70-130); Calcium 8.8 mg/dL (7.8-10.44); Carbon Dioxide 32 mmol/L (23-31); Chloride 105 mmol/L (98-107); Estimated GFR 66; Glucose 324 mg/dL (83-110); Potassium 3.6 mmol/L (3.5-5.1); Sodium 144 mmol/L (136-145)
[2022-05-02 05:31] LABS: Hemoglobin 8.1 g/dL (12.0-16.0); Mean Corpuscular HGB CONC 31.5 g/dL (32.0-36.0); Mean Corpuscular Hemoglobin 29.7 pg (27.0-31.0); Mean Corpuscular Volume 94.1 fl (78.0-98.0); Mean Platelet Volume 8.5 fL (7.4-10.4); Platelet Count 75 10x3/uL (130-400); RBC Distribution Width 14.8 % (11.5-14.5); Red Blood Cell (RBC) Count 2.74 mill/uL (4.20-5.40); White Blood Cell (WBC) Count 4.2 10x3/uL (4.8-10.8)
[2022-05-02] MEDS: Furosemide 40 MG/4 ML VIAL SLOW IVP SCH ×2 (05:40→13:27)
[2022-05-02] MEDS: methylPREDNISolone Sod Succ 40 MG VIAL IVP SCH ×3 (05:40→16:48)
[2022-05-02] MEDS: HumaLOG 300 UNITS/3 ML VIAL SC PRN ×3 (05:40→21:05)
[2022-05-02 06:19] LABS: Anisocytosis SLIGHT = 6-15 cells (100X) (0-5/hpf); Band 6 % (5-11); Lymphocytes 5 % (21-51); MDiff Complete? YES; Metamyelocyte 2 % (0-0); Monocytes 2 % (0-10); Neutrophil 85 % (42-75); Platelet Morphology Comment Appears Decreased
[2022-05-02] MEDS ORDERED: Dexmedetomidine In 0.9 % NaCl 100 ML IVPB SCH (08:45)
[2022-05-02] MEDS ORDERED: HumaLOG 300 UNITS/3 ML VIAL SC PRN (08:46)
[2022-05-02] MEDS: Pantoprazole 40 MG VIAL IVP SCH (08:52)
[2022-05-02] MEDS: Polyethylene Glycol 3350 17 GM Packet PER TUBE SCH (09:23)
[2022-05-02] MEDS: Acetaminophen 325 MG TAB PER TUBE PRN (13:29)
[2022-05-03] MEDS: methylPREDNISolone Sod Succ 40 MG VIAL IVP SCH ×4 (00:48→18:50)
[2022-05-03] MEDS: Ipratropium/Albuterol 3 ML NEB NEB SCH ×6 (02:47→21:57)
[2022-05-03] MEDS: HumaLOG 300 UNITS/3 ML VIAL SC PRN ×4 (03:36→21:08)
[2022-05-03 04:02] LABS: Hemoglobin 8.9 g/dL (12.0-16.0); Mean Corpuscular HGB CONC 31.5 g/dL (32.0-36.0); Mean Corpuscular Hemoglobin 29.5 pg (27.0-31.0); Mean Corpuscular Volume 93.6 fl (78.0-98.0); Mean Platelet Volume 8.9 fL (7.4-10.4); Platelet Count 79 10x3/uL (130-400); RBC Distribution Width 14.8 % (11.5-14.5); White Blood Cell (WBC) Count 5.7 10x3/uL (4.8-10.8)
[2022-05-03 04:23] LABS: Anion Gap 10 mmol/L (10-20); BUN (Urea Nitrogen) 54 mg/dL (9.8-20.1); Calc. Creatinine Clearance 77 mL/min (70-130); Carbon Dioxide 34 mmol/L (23-31); Chloride 106 mmol/L (98-107); Estimated GFR 63; Glucose 344 mg/dL (83-110); Potassium 4.1 mmol/L (3.5-5.1); Sodium 146 mmol/L (136-145)
[2022-05-03 04:30] LABS: Band 7 % (5-11); Lymphocytes 10 % (21-51); MDiff Complete? YES; Monocytes 4 % (0-10); Myelocyte 1 % (0-0); Neutrophil 78 % (42-75); Platelet Morphology Comment Appears Decreased
[2022-05-03] MEDS: Furosemide 40 MG/4 ML VIAL SLOW IVP SCH ×2 (05:26→13:28)
[2022-05-03 07:20] LABS: Actual Bicarbonate (HCO3a) 36.4 mEq/L (22-28); Base Excess (BEa) 11.2 mEq/L (-2.0 to +3.0); Calcium, Ionized (arterial) 1.21 mmol/L (1.12-1.30); Carboxyhemoglobin (COHb) 0.5 gm% (0.0-3.0); Hemoglobin (Hb) 9.7 g/dL (12.0-16.0); O2 Tension (PaO2), arterial 63.1 mmHg (> 70.0); Potassium - ABG Lab 3.96 mmol/L (3.70-5.30); pH, Arterial 7.46 (7.35-7.45)
[2022-05-03] MEDS: Polyethylene Glycol 3350 17 GM Packet PER TUBE SCH (09:53)
[2022-05-03] MEDS: Pantoprazole 40 MG VIAL IVP SCH (09:53)
[2022-05-04] MEDS: methylPREDNISolone Sod Succ 40 MG VIAL IVP SCH ×3 (00:08→19:47)
[2022-05-04] MEDS: Ipratropium/Albuterol 3 ML NEB NEB SCH ×6 (02:34→21:56)
[2022-05-04] MEDS: HumaLOG 300 UNITS/3 ML VIAL SC PRN ×3 (04:04→21:05)
[2022-05-04] MEDS: Fentanyl CADD 100 ML IV SCH (04:14)
[2022-05-04] MEDS: Furosemide 40 MG/4 ML VIAL SLOW IVP SCH (05:12)
[2022-05-04] MEDS: Pantoprazole 40 MG VIAL IVP SCH (09:14)
[2022-05-04] MEDS: Polyethylene Glycol 3350 17 GM Packet PER TUBE SCH (09:14)
[2022-05-04] MEDS: Acetaminophen 325 MG TAB PER TUBE PRN (19:46)
[2022-05-05] MEDS: Ipratropium/Albuterol 3 ML NEB NEB SCH ×6 (01:52→22:22)
[2022-05-05] MEDS: HumaLOG 300 UNITS/3 ML VIAL SC PRN ×2 (05:50→17:41)
[2022-05-05] MEDS: Polyethylene Glycol 3350 17 GM Packet PER TUBE SCH (09:41)
[2022-05-05] MEDS: Pantoprazole 40 MG VIAL IVP SCH (09:41)
[2022-05-05] MEDS: Furosemide 40 MG/4 ML VIAL SLOW IVP SCH (09:41)
[2022-05-05] MEDS: methylPREDNISolone Sod Succ 40 MG VIAL IVP SCH ×2 (09:41→21:55)
[2022-05-05] MEDS: metFORMIN 500 MG TAB PO SCH (17:40)
[2022-05-05] MEDS ORDERED: HumaLOG 300 UNITS/3 ML VIAL SC PRN (21:08)
[2022-05-05] MEDS: DULoxetine 60 MG CAP PO SCH (21:55)
[2022-05-05] MEDS: Floranex 1 GM Packet PO SCH (21:55)
[2022-05-05] MEDS ORDERED: Benzonatate 100 MG CAP PO PRN (22:10)
[2022-05-05] MEDS ORDERED: GUAIFENESIN SF SOLN 200 MG/10 ML UDCUP PO PRN (22:10)
[2022-05-05] MEDS: Acetaminophen 325 MG TAB PER TUBE PRN (22:12)
[2022-05-05] MEDS ORDERED: Cepastat Lozenges 1 LOZ PO PRN (22:21)
[2022-05-06] MEDS: Ipratropium/Albuterol 3 ML NEB NEB SCH ×6 (01:18→22:27)
[2022-05-06 05:35] LABS: Anion Gap 11 mmol/L (10-20); BUN (Urea Nitrogen) 37 mg/dL (9.8-20.1); Calc. Creatinine Clearance 84 mL/min (70-130); Carbon Dioxide 31 mmol/L (23-31); Chloride 104 mmol/L (98-107); Estimated GFR 73; Glucose 295 mg/dL (83-110); Potassium 4.8 mmol/L (3.5-5.1); Sodium 141 mmol/L (136-145)
[2022-05-06] MEDS: HumaLOG 300 UNITS/3 ML VIAL SC PRN ×2 (06:03→17:52)
[2022-05-06] MEDS ORDERED: metFORMIN 500 MG TAB PO SCH (09:45)
[2022-05-06] MEDS: Aspirin 325 mg Enteric Coated Tablet PO SCH (09:54)
[2022-05-06] MEDS: methylPREDNISolone Sod Succ 40 MG VIAL IVP SCH ×2 (09:55→21:16)
[2022-05-06] MEDS: Furosemide 40 MG/4 ML VIAL SLOW IVP SCH (09:55)
[2022-05-06] MEDS: Lisinopril 5 MG TAB PO SCH (09:55)
[2022-05-06] MEDS: Polyethylene Glycol 3350 17 GM Packet PER TUBE SCH (09:56)
[2022-05-06] MEDS: Pantoprazole 40 MG VIAL IVP SCH (09:56)
[2022-05-06] MEDS: metFORMIN 500 MG TAB PO SCH ×2 (10:22→17:36)
[2022-05-06] MEDS: Floranex 1 GM Packet PO SCH ×2 (10:25→21:16)
[2022-05-06] MEDS: DULoxetine 60 MG CAP PO SCH (21:16)
[2022-05-07] MEDS: Ipratropium/Albuterol 3 ML NEB NEB SCH ×5 (02:26→18:53)
[2022-05-07 05:41] LABS: Anion Gap 9 mmol/L (10-20); BUN (Urea Nitrogen) 36 mg/dL (9.8-20.1); Calc. Creatinine Clearance 92 mL/min (70-130); Carbon Dioxide 33 mmol/L (23-31); Chloride 100 mmol/L (98-107); Estimated GFR 81; Glucose 249 mg/dL (83-110); Potassium 4.3 mmol/L (3.5-5.1); Sodium 138 mmol/L (136-145)
[2022-05-07] MEDS: HumaLOG 300 UNITS/3 ML VIAL SC PRN ×3 (05:56→18:11)
[2022-05-07] MEDS: metFORMIN 500 MG TAB PO SCH ×2 (10:13→17:45)
[2022-05-07] MEDS: Furosemide 40 MG/4 ML VIAL SLOW IVP SCH (10:13)
[2022-05-07] MEDS: Aspirin 325 mg Enteric Coated Tablet PO SCH (10:13)
[2022-05-07] MEDS: Polyethylene Glycol 3350 17 GM Packet PER TUBE SCH (10:14)
[2022-05-07] MEDS: Lisinopril 5 MG TAB PO SCH (10:14)
[2022-05-07] MEDS: Pantoprazole 40 MG VIAL IVP SCH (10:14)
[2022-05-07] MEDS: methylPREDNISolone Sod Succ 40 MG VIAL IVP SCH (10:14)
[2022-05-07] MEDS: Floranex 1 GM Packet PO SCH ×2 (10:36→21:12)
[2022-05-07] MEDS: DULoxetine 60 MG CAP PO SCH (21:12)
[2022-05-08 05:07] LABS: Anion Gap 11 mmol/L (10-20); BUN (Urea Nitrogen) 35 mg/dL (9.8-20.1); Calc. Creatinine Clearance 97 mL/min (70-130); Calcium 9.2 mg/dL (7.8-10.44); Carbon Dioxide 30 mmol/L (23-31); Chloride 102 mmol/L (98-107); Estimated GFR 85; Glucose 108 mg/dL (83-110); Potassium 3.7 mmol/L (3.5-5.1); Sodium 139 mmol/L (136-145)
[2022-05-08] MEDS: Ipratropium/Albuterol 3 ML NEB NEB SCH ×3 (06:59→18:25)
[2022-05-08] MEDS: predniSONE 20 MG TAB PO SCH (10:00)
[2022-05-08] MEDS: Furosemide 40 MG/4 ML VIAL SLOW IVP SCH (10:00)
[2022-05-08] MEDS: Lisinopril 5 MG TAB PO SCH (10:00)
[2022-05-08] MEDS: metFORMIN 500 MG TAB PO SCH ×2 (10:01→18:19)
[2022-05-08] MEDS: Aspirin 325 mg Enteric Coated Tablet PO SCH (10:01)
[2022-05-08] MEDS: Polyethylene Glycol 3350 17 GM Packet PER TUBE SCH (10:01)
[2022-05-08] MEDS: Floranex 1 GM Packet PO SCH ×2 (10:02→20:42)
[2022-05-08 15:02] VITALS: BMI 34.8
[2022-05-08] MEDS ORDERED: Furosemide 20 MG/2 ML VIAL SLOW IVP SCH (15:45)
[2022-05-08] MEDS: DULoxetine 60 MG CAP PO SCH (20:40)
[2022-05-09] MEDS: Ipratropium/Albuterol 3 ML NEB NEB SCH ×3 (07:34→18:27)
[2022-05-09] MEDS ORDERED: Levothyroxine Sodium 112 MCG TAB PO SCH (08:45)
[2022-05-09] MEDS: metFORMIN 500 MG TAB PO SCH ×2 (09:57→16:09)
[2022-05-09] MEDS: predniSONE 20 MG TAB PO SCH (09:57)
[2022-05-09] MEDS: Floranex 1 GM Packet PO SCH ×2 (09:58→20:07)
[2022-05-09] MEDS: Lisinopril 5 MG TAB PO SCH (09:58)
[2022-05-09] MEDS: Aspirin 325 mg Enteric Coated Tablet PO SCH (09:58)
[2022-05-09] MEDS: Furosemide 40 MG/4 ML VIAL SLOW IVP SCH (10:00)
[2022-05-09] MEDS: Polyethylene Glycol 3350 17 GM Packet PER TUBE SCH (10:02)
[2022-05-09] MEDS ORDERED: HumaLOG 300 UNITS/3 ML VIAL SC PRN (12:43)
[2022-05-09] MEDS: DULoxetine 60 MG CAP PO SCH (20:07)
[2022-05-10 04:59] LABS: Hemoglobin 8.8 g/dL (12.0-16.0); Mean Corpuscular HGB CONC 31.5 g/dL (32.0-36.0); Mean Platelet Volume 10.2 fL (7.4-10.4); Platelet Count 49 10x3/uL (130-400); RBC Distribution Width 16.4 % (11.5-14.5); Red Blood Cell (RBC) Count 3.05 mill/uL (4.20-5.40); White Blood Cell (WBC) Count 6.5 10x3/uL (4.8-10.8)
[2022-05-10 05:18] LABS: Anion Gap 12 mmol/L (10-20); BUN (Urea Nitrogen) 40 mg/dL (9.8-20.1); Calc. Creatinine Clearance 84 mL/min (70-130); Carbon Dioxide 29 mmol/L (23-31); Chloride 99 mmol/L (98-107); Estimated GFR 75; Glucose 106 mg/dL (83-110); Potassium 3.9 mmol/L (3.5-5.1); Sodium 136 mmol/L (136-145)
[2022-05-10] MEDS ORDERED: Levothyroxine Sodium 112 MCG TAB PO SCH (06:00)
[2022-05-10] MEDS: Ipratropium/Albuterol 3 ML NEB NEB SCH ×2 (06:51→12:32)
[2022-05-10] MEDS ORDERED: Furosemide 40 MG TAB PO SCH (07:30)
[2022-05-10] MEDS: Aspirin 325 mg Enteric Coated Tablet PO SCH (09:36)
[2022-05-10] MEDS: predniSONE 20 MG TAB PO SCH (09:36)
[2022-05-10] MEDS: Floranex 1 GM Packet PO SCH (09:36)
[2022-05-10] MEDS: Polyethylene Glycol 3350 17 GM Packet PER TUBE SCH (09:36)
[2022-05-10] MEDS: metFORMIN 500 MG TAB PO SCH (09:36)
[2022-05-10] MEDS: Lisinopril 5 MG TAB PO SCH (09:36)
[2022-05-10 12:08] VITALS: TEMP 98
[2022-05-10 12:15] VITALS: BP 116/56
== END 2022-05-10 15:30 | DRG 870 ==
LOC: ERS 02:28 → ERHOLD 05:22 → CCU 07:42 → 2NO 05-04 23:40
PROVIDERS: ADMIT Internal Medicine; ATTEND Internal Medicine
PROC: 5A1955Z Respiratory Ventilation, Greater than 96 Consecutive Hours (ICD-10-PCS; principal; 2022-04-28)
PROC: 0BH17EZ Insertion of Endotracheal Airway into Trachea, Via Natural or Artificial Opening (ICD-10-PCS; 2022-04-28)
PROC: 02HV33Z Insertion of Infusion Device into Superior Vena Cava, Percutaneous Approach (ICD-10-PCS; 2022-04-28)
PROC: 0D9670Z Drainage of Stomach with Drainage Device, Via Natural or Artificial Opening (ICD-10-PCS; 2022-04-28)
PROC: 3E03329 Introduction of Other Anti-infective into Peripheral Vein, Percutaneous Approach (ICD-10-PCS; 2022-04-28)
DX: A41.9 Sepsis, unspecified organism (principal); I50.33 Acute on chronic diastolic (congestive) heart failure; J96.01 Acute respiratory failure with hypoxia; J96.02 Acute respiratory failure with hypercapnia; J18.9 Pneumonia, unspecified organism; G93.41 Metabolic encephalopathy; J44.0 Chronic obstructive pulmonary disease with (acute) lower respiratory infection; J44.1 Chronic obstructive pulmonary disease with (acute) exacerbation; I13.0 Hypertensive heart and chronic kidney disease with heart failure and stage 1 through stage 4 chronic kidney disease, or unspecified chronic kidney disease; D61.818 Other pancytopenia; J94.8 Other specified pleural conditions; Z66 Do not resuscitate; Z20.822 Contact with and (suspected) exposure to COVID-19; R65.20 Severe sepsis without septic shock; E66.9 Obesity, unspecified; E03.9 Hypothyroidism, unspecified; I25.10 Atherosclerotic heart disease of native coronary artery without angina pectoris; E11.22 Type 2 diabetes mellitus with diabetic chronic kidney disease; N18.2 Chronic kidney disease, stage 2 (mild); K74.60 Unspecified cirrhosis of liver; D73.1 Hypersplenism; D63.1 Anemia in chronic kidney disease; Z88.5 Allergy status to narcotic agent; Z88.2 Allergy status to sulfonamides; Z88.0 Allergy status to penicillin; Z91.041 Radiographic dye allergy status; Z78.1 Physical restraint status; Z79.84 Long term (current) use of oral hypoglycemic drugs; Z79.82 Long term (current) use of aspirin; Z79.899 Other long term (current) drug therapy
CPT/HCPCS: 31500; 36415; 36416; 36556; 36600; 51702; 71045; 71260; 80048; 80053; 81003; 81015; 82553; 82805; 83605; 83735; 83880; 84439; 84443; 84481; 84484; 85025; 85027; 87040; 87070; 87086; 87205; 87449; 87811; 87899; 93005; 94002; 94003; 94640; 94644; 94660; 96365; 96374; 96375; C9113; J0692; J1650; J1815; J1940; J1956; J2405; J2704; J2920; J2930; J3010; J3370; J3475; J3490; J7512; J7611; J7620; Q9967; U0002

== ENCOUNTER 2022-06-09 20:19 | Emergency (ER) | payer MEDICARE, MEDICAID ==
[2022-06-09 21:38] LABS: ALT (SGPT) 10 U/L (8-55); AST (SGOT) 21 U/L (5-34); Alkaline Phosphatase 149 U/L (40-110); Anion Gap 15 mmol/L (10-20); BUN (Urea Nitrogen) 12 mg/dL (9.8-20.1); Calc. Creatinine Clearance 0 mL/min (70-130); Calcium 9.6 mg/dL (7.8-10.44); Carbon Dioxide 22 mmol/L (23-31); Chloride 110 mmol/L (98-107); Estimated GFR 86; Globulin 2.4 g/dL (2.4-3.5); Glucose 142 mg/dL (83-110); Potassium 3.9 mmol/L (3.5-5.1); Protein, Total 5.4 g/dL (5.8-8.1); Sodium 143 mmol/L (136-145)
[2022-06-09 21:48] LABS: Hemoglobin 8.6 g/dL (12.0-16.0); Mean Corpuscular HGB CONC 32.4 g/dL (32.0-36.0); Mean Corpuscular Hemoglobin 28.9 pg (27.0-31.0); Mean Corpuscular Volume 89.3 fl (78.0-98.0); Mean Platelet Volume 9.5 fL (7.4-10.4); Platelet Count 70 10x3/uL (130-400); RBC Distribution Width 16.1 % (11.5-14.5); Red Blood Cell (RBC) Count 2.97 mill/uL (4.20-5.40); White Blood Cell (WBC) Count 3.5 10x3/uL (4.8-10.8)
[2022-06-09 22:11] LABS: Anisocytosis SLIGHT = 6-15 cells (100X) (0-5/hpf); Eosinophils 2 % (0-10); Lymphocytes 25 % (21-51); MDiff Complete? YES; Monocytes 10 % (0-10); Neutrophil 63 % (42-75); Ovalocytes SLIGHT = 2-5 cells (100X) (0-1/hpf); Platelet Morphology Comment Appears Decreased; Polychromasia SLIGHT = 2-3 cells (100X) (0-2/hpf)
== END 2022-06-10 02:22 ==
LOC: ERS 20:19
DX: R07.89 Other chest pain (principal); D72.819 Decreased white blood cell count, unspecified; J44.9 Chronic obstructive pulmonary disease, unspecified; E66.9 Obesity, unspecified; E11.9 Type 2 diabetes mellitus without complications
CPT/HCPCS: 36415; 71045; 80053; 83880; 84484; 85025; 93005

== ENCOUNTER 2022-07-02 01:05 | Inpatient (IN) | payer MEDICARE, MEDICAID ==
[2022-07-02 01:37] LABS: #Eosinphils 0.2 thou/uL (0.0-0.7); #Lymphocytes 0.7 thou/uL (1.20-3.40); #Monocytes 0.4 thou/uL (0.11-0.59); #Neutrophils 2.4 thou/uL (1.40-6.50); %Basophils 0.8 % (0.0-1.0); %Eosinophils 5.4 % (0.0-10.0); %Lymphocytes 19.3 % (21.0-51.0); %Monocytes 10.8 % (0.0-10.0); %Neutrophils 63.7 % (42.0-75.0); Hemoglobin 8.6 g/dL (12.0-16.0); Mean Corpuscular HGB CONC 31.9 g/dL (32.0-36.0); Mean Corpuscular Hemoglobin 29.1 pg (27.0-31.0); Mean Corpuscular Volume 91.3 fl (78.0-98.0); Mean Platelet Volume 8.9 fL (7.4-10.4); Platelet Count 74 10x3/uL (130-400); Red Blood Cell (RBC) Count 2.95 mill/uL (4.20-5.40); White Blood Cell (WBC) Count 3.7 10x3/uL (4.8-10.8)
[2022-07-02 01:55] LABS: ALT (SGPT) 11 U/L (8-55); AST (SGOT) 20 U/L (5-34); Albumin 2.8 g/dL (3.4-4.8); Alkaline Phosphatase 169 U/L (40-110); Anion Gap 12 mmol/L (10-20); BUN (Urea Nitrogen) 17 mg/dL (9.8-20.1); Calc. Creatinine Clearance 0 mL/min (70-130); Calcium 9.6 mg/dL (7.8-10.44); Carbon Dioxide 23 mmol/L (23-31); Chloride 110 mmol/L (98-107); Estimated GFR 73; Globulin 2.7 g/dL (2.4-3.5); Glucose 135 mg/dL (83-110); Magnesium 1.7 mg/dL (1.6-2.6); Potassium 3.6 mmol/L (3.5-5.1); Protein, Total 5.5 g/dL (5.8-8.1); Sodium 141 mmol/L (136-145)
[2022-07-02] MEDS ORDERED: Fentanyl 100 MCG/2 ML VIAL ONE (03:59)
[2022-07-02 06:07] LABS: Troponin I 0.112 ng/mL (< 0.028)
[2022-07-02] MEDS ORDERED: Fentanyl 100 MCG/2 ML VIAL SLOW IVP PRN (06:52)
[2022-07-02] MEDS ORDERED: Ondansetron ODT 4 MG TAB SL PRN (07:00)
[2022-07-02] MEDS ORDERED: Acetaminophen 325 MG TAB PO PRN (07:00)
[2022-07-02] MEDS ORDERED: Ondansetron PF 4 MG/2 ML Vial IVP PRN (07:00)
[2022-07-02 07:37] VITALS: BMI 32.2
[2022-07-02 08:58] LABS: Troponin I 0.345 ng/mL (< 0.028)
[2022-07-02] MEDS ORDERED: Iopamidol-370 76% 500 ML 1 ML ONE (09:25)
[2022-07-02] MEDS ORDERED: HumaLOG 300 UNITS/3 ML VIAL SC PRN ×2 (10:24)
[2022-07-02] MEDS ORDERED: Dextrose 50% Abboject 50 ML SYRINGE SLOW IVP PRN (10:24)
[2022-07-02] MEDS ORDERED: Dextrose 5% in Water 1,000 ML IV PRN (10:24)
[2022-07-02] MEDS ORDERED: Nitroglycerin 0.4 MG TAB (25 Tab Bottle) SL PRN (10:24)
[2022-07-02] MEDS ORDERED: Electrolyte Replacement Protocol 1 EACH FS SCH (10:30)
[2022-07-02] MEDS ORDERED: Electrolyte Replacement Protocol FS PRN (10:45)
[2022-07-02] MEDS ORDERED: HYDROcodone/Acetaminophen 5/325 mg Tablet PO SCH (10:45)
[2022-07-02] MEDS ORDERED: Ipratropium Oral Inhaler INH PRN (10:48)
[2022-07-02] MEDS: cefTRIAXone\\ROCEPHIN 1 GM in Sodium Chloride 0.9% 100 ML IVPB SCH (11:33)
[2022-07-02 12:04] LABS: Bacteria/HPF None Seen HPF (None Seen); Bilirubin Negative (Negative); Blood, Urine Negative (Negative); CAUTI Indications for Culture Alt mental st,lethar; Clarity Clear (Clear); Glucose, Urine (Dipstick) Normal (Negative); Ketone, Urine Negative (Negative); Leukocyte Negative Leu/uL (Negative); Nitrite Negative (Negative); Protein, Urine (Dipstick) Negative (Neg-Trace); RBC/HPF 0-3 HPF (0-3); Specific Gravity, Urine 1.045 (1.002-1.036); Squamous Epithelial 0-3 HPF (0-3); Urobilinogen 3 mg/dL (Less than 2); WBC/HPF None Seen HPF (0-3)
[2022-07-02 12:06] LABS: Urine Culture Reflex No No
[2022-07-02] MEDS ORDERED: Magnesium 2 GM/50 ML(in water) 2 GM in Premix Bag 1 BAG IVPB SCH (12:45)
[2022-07-02] MEDS ORDERED: Metoprolol Tartrate 50 MG TAB PO SCH (17:00)
[2022-07-02] MEDS: DULoxetine 60 MG CAP PO SCH (21:52)
[2022-07-02] MEDS: Nitroglycerin 2% Ointment 1 INCH/1 GM Packet TOP SCH (22:39)
[2022-07-03 01:57] LABS: #Eosinphils 0.2 thou/uL (0.0-0.7); #Lymphocytes 0.7 thou/uL (1.20-3.40); #Monocytes 0.5 thou/uL (0.11-0.59); #Neutrophils 3.7 thou/uL (1.40-6.50); %Basophils 0.3 % (0.0-1.0); %Eosinophils 3.1 % (0.0-10.0); %Lymphocytes 14.2 % (21.0-51.0); %Monocytes 10.1 % (0.0-10.0); %Neutrophils 72.3 % (42.0-75.0); Hemoglobin 9.1 g/dL (12.0-16.0); Mean Corpuscular HGB CONC 31.8 g/dL (32.0-36.0); Mean Corpuscular Hemoglobin 29.3 pg (27.0-31.0); Mean Corpuscular Volume 92.1 fl (78.0-98.0); Mean Platelet Volume 9.4 fL (7.4-10.4); Platelet Count 86 10x3/uL (130-400); RBC Distribution Width 17.5 % (11.5-14.5); White Blood Cell (WBC) Count 5.1 10x3/uL (4.8-10.8)
[2022-07-03 02:41] LABS: Anion Gap 12 mmol/L (10-20); BUN (Urea Nitrogen) 13 mg/dL (9.8-20.1); Calc. Creatinine Clearance 91 mL/min (70-130); Calcium 9.6 mg/dL (7.8-10.44); Carbon Dioxide 21 mmol/L (23-31); Cardiac Risk 3.6 (Less than 4.5); Chloride 111 mmol/L (98-107); Cholesterol 156 mg/dl (< 200 Desired); Estimated GFR 83; Glucose 121 mg/dL (83-110); HDL Cholesterol 43 mg/dL (>60 Neg Risk); LDL Cholesterol, Calculated 99 mg/dL; Magnesium 2.2 mg/dL (1.6-2.6); Potassium 4.1 mmol/L (3.5-5.1); Sodium 140 mmol/L (136-145); Triglycerides 69 mg/dL (Less than 150)
[2022-07-03] MEDS: Levothyroxine Sodium 112 MCG TAB PO SCH (05:14)
[2022-07-03] MEDS: Furosemide 40 MG TAB PO SCH (07:43)
[2022-07-03] MEDS ORDERED: Lisinopril 5 MG TAB PO SCH (09:00)
[2022-07-03] MEDS ORDERED: Metoprolol Tartrate 50 MG TAB PO SCH (09:00)
[2022-07-03] MEDS: Aspirin 325 mg Enteric Coated Tablet PO SCH (09:57)
[2022-07-03] MEDS: Nitroglycerin 2% Ointment 1 INCH/1 GM Packet TOP SCH ×2 (09:57→21:40)
[2022-07-03] MEDS: cefTRIAXone\\ROCEPHIN 1 GM in Sodium Chloride 0.9% 100 ML IVPB SCH (11:26)
[2022-07-03] MEDS ORDERED: Communication Order-Pharmacy FS SCH (19:30)
[2022-07-03] MEDS ORDERED: predniSONE 50 MG TAB PO SCH (21:00)
[2022-07-03] MEDS: Lisinopril 5 MG TAB PO SCH (21:39)
[2022-07-03] MEDS: DULoxetine 60 MG CAP PO SCH (21:40)
[2022-07-03] MEDS: Atorvastatin Calcium 40 MG TAB PO SCH (21:40)
[2022-07-04] MEDS ORDERED: Sodium Chloride 0.9% 500 ML IV SCH (00:01)
[2022-07-04 05:12] LABS: #Eosinphils 0.1 thou/uL (0.0-0.7); #Lymphocytes 0.5 thou/uL (1.20-3.40); #Monocytes 0.2 thou/uL (0.11-0.59); #Neutrophils 4.4 thou/uL (1.40-6.50); %Monocytes 3.6 % (0.0-10.0); %Neutrophils 86.4 % (42.0-75.0); Hemoglobin 8.6 g/dL (12.0-16.0); Mean Corpuscular HGB CONC 32.3 g/dL (32.0-36.0); Mean Corpuscular Hemoglobin 29.5 pg (27.0-31.0); Mean Corpuscular Volume 91.3 fl (78.0-98.0); Mean Platelet Volume 9.4 fL (7.4-10.4); Platelet Count 71 10x3/uL (130-400); RBC Distribution Width 17.4 % (11.5-14.5); Red Blood Cell (RBC) Count 2.93 mill/uL (4.20-5.40)
[2022-07-04] MEDS: Levothyroxine Sodium 112 MCG TAB PO SCH (05:19)
[2022-07-04 05:39] LABS: Anion Gap 11 mmol/L (10-20); BUN (Urea Nitrogen) 17 mg/dL (9.8-20.1); Calc. Creatinine Clearance 74 mL/min (70-130); Calcium 9.1 mg/dL (7.8-10.44); Carbon Dioxide 20 mmol/L (23-31); Chloride 111 mmol/L (98-107); Estimated GFR 65; Glucose 183 mg/dL (83-110); Potassium 4.3 mmol/L (3.5-5.1); Sodium 138 mmol/L (136-145)
[2022-07-04] MEDS: Furosemide 40 MG TAB PO SCH (09:05)
[2022-07-04] MEDS: Carvedilol 6.25 MG TAB PO SCH ×2 (09:06→18:19)
[2022-07-04] MEDS: Ferrous Sulfate 325 MG TAB PO SCH (09:06)
[2022-07-04] MEDS: Aspirin 325 mg Enteric Coated Tablet PO SCH (09:07)
[2022-07-04] MEDS: Nitroglycerin 2% Ointment 1 INCH/1 GM Packet TOP SCH ×2 (09:09→22:23)
[2022-07-04] MEDS: Clopidogrel Bisulfate 75 MG TAB PO SCH (09:09)
[2022-07-04] MEDS: Lisinopril 5 MG TAB PO SCH ×2 (09:09→22:23)
[2022-07-04] MEDS: cefTRIAXone\\ROCEPHIN 1 GM in Sodium Chloride 0.9% 100 ML IVPB SCH (11:55)
[2022-07-04] MEDS: Atorvastatin Calcium 40 MG TAB PO SCH (22:23)
[2022-07-04] MEDS: DULoxetine 60 MG CAP PO SCH (22:23)
[2022-07-05 05:18] LABS: Anion Gap 10 mmol/L (10-20); BUN (Urea Nitrogen) 21 mg/dL (9.8-20.1); Calc. Creatinine Clearance 75 mL/min (70-130); Calcium 8.6 mg/dL (7.8-10.44); Carbon Dioxide 21 mmol/L (23-31); Chloride 110 mmol/L (98-107); Estimated GFR 67; Glucose 131 mg/dL (83-110); Potassium 3.4 mmol/L (3.5-5.1); Sodium 138 mmol/L (136-145)
[2022-07-05 05:26] LABS: Anisocytosis SLIGHT = 6-15 cells (100X) (0-5/hpf); Eosinophils 2 % (0-10); Hemoglobin 7.7 g/dL (12.0-16.0); Hypochromia SLIGHT = 6-15 cells (100X) (0-5/hpf); Lymphocytes 21 % (21-51); MDiff Complete? YES; Mean Corpuscular HGB CONC 31.1 g/dL (32.0-36.0); Mean Corpuscular Volume 93.4 fl (78.0-98.0); Mean Platelet Volume 8.7 fL (7.4-10.4); Monocytes 4 % (0-10); Neutrophil 73 % (42-75); Platelet Count 73 10x3/uL (130-400); Platelet Morphology Comment Appears Decreased; Polychromasia SLIGHT = 2-3 cells (100X) (0-2/hpf); RBC Distribution Width 17.7 % (11.5-14.5); Red Blood Cell (RBC) Count 2.65 mill/uL (4.20-5.40); White Blood Cell (WBC) Count 3.3 10x3/uL (4.8-10.8)
[2022-07-05] MEDS: Levothyroxine Sodium 112 MCG TAB PO SCH (06:19)
[2022-07-05] MEDS: Furosemide 40 MG TAB PO SCH (07:38)
[2022-07-05] MEDS ORDERED: Potassium Chloride 20 MEQ TAB PO SCH (08:00)
[2022-07-05] MEDS: Ferrous Sulfate 325 MG TAB PO SCH (08:24)
[2022-07-05] MEDS: Carvedilol 6.25 MG TAB PO SCH (08:25)
[2022-07-05] MEDS: Aspirin 325 mg Enteric Coated Tablet PO SCH (10:46)
[2022-07-05] MEDS: Clopidogrel Bisulfate 75 MG TAB PO SCH (10:47)
[2022-07-05] MEDS: Nitroglycerin 2% Ointment 1 INCH/1 GM Packet TOP SCH (10:47)
[2022-07-05] MEDS: Lisinopril 5 MG TAB PO SCH (10:47)
[2022-07-05] MEDS ORDERED: Acetaminophen 500 MG TAB PO SCH (12:15)
[2022-07-05 12:58] VITALS: TEMP 97.5
[2022-07-05 12:59] VITALS: BP 136/55
== END 2022-07-05 14:15 | DRG 281 ==
LOC: ERS 01:05 → ERHOLD 04:26 → 2SW 06:24 → OBSVTOIN 07-04 10:47
PROVIDERS: ADMIT Student in an Organized Health Care Education/Training Program; ATTEND Family Medicine
DX: I21.4 Non-ST elevation (NSTEMI) myocardial infarction (principal); D61.818 Other pancytopenia; I50.20 Unspecified systolic (congestive) heart failure; E78.5 Hyperlipidemia, unspecified; E11.9 Type 2 diabetes mellitus without complications; E03.9 Hypothyroidism, unspecified; I25.10 Atherosclerotic heart disease of native coronary artery without angina pectoris; I44.7 Left bundle-branch block, unspecified; I35.0 Nonrheumatic aortic (valve) stenosis; I35.1 Nonrheumatic aortic (valve) insufficiency; K74.60 Unspecified cirrhosis of liver; E66.9 Obesity, unspecified; D69.6 Thrombocytopenia, unspecified; I86.8 Varicose veins of other specified sites; D64.9 Anemia, unspecified; I11.0 Hypertensive heart disease with heart failure; Z20.822 Contact with and (suspected) exposure to COVID-19; Z88.5 Allergy status to narcotic agent; Z88.0 Allergy status to penicillin; Z88.2 Allergy status to sulfonamides; Z88.8 Allergy status to other drugs, medicaments and biological substances; Z79.82 Long term (current) use of aspirin; Z79.84 Long term (current) use of oral hypoglycemic drugs; Z79.899 Other long term (current) drug therapy; I25.2 Old myocardial infarction; Z90.49 Acquired absence of other specified parts of digestive tract; Z98.890 Other specified postprocedural states; Z68.31 Body mass index [BMI] 31.0-31.9, adult
CPT/HCPCS: 36415; 36416; 70498; 71045; 71275; 74174; 80048; 80053; 80061; 83735; 83880; 84443; 84484; 85025; 87040; 93005; 93010; 93306; 93798; 94760; 96374; 96375; 96376; 97139; G0378; J0696; J3010; J3475; J3490; J7030; J7512; Q9967; U0003; U0005

== ENCOUNTER 2022-08-03 08:59 | Observation (INO) | payer MEDICARE, MEDICAID ==
[2022-08-03 10:31] LABS: Hemoglobin 12.5 g/dL (12.0-16.0); Mean Corpuscular HGB CONC 32.5 g/dL (32.0-36.0); Mean Corpuscular Volume 98.4 fl (78.0-98.0); Mean Platelet Volume 9.3 fL (7.4-10.4); Platelet Count 70 10x3/uL (130-400); RBC Distribution Width 19.4 % (11.5-14.5); Red Blood Cell (RBC) Count 3.92 mill/uL (4.20-5.40); White Blood Cell (WBC) Count 4.1 10x3/uL (4.8-10.8)
[2022-08-03 10:45] LABS: ALT (SGPT) 15 U/L (8-55); AST (SGOT) 30 U/L (5-34); Albumin 3.2 g/dL (3.4-4.8); Alkaline Phosphatase 183 U/L (40-110); Anion Gap 15 mmol/L (10-20); BUN (Urea Nitrogen) 24 mg/dL (9.8-20.1); Bilirubin, Total 1.6 mg/dL (0.2-1.2); Calc. Creatinine Clearance 0 mL/min (70-130); Calcium 10.2 mg/dL (7.8-10.44); Carbon Dioxide 29 mmol/L (23-31); Chloride 98 mmol/L (98-107); Estimated GFR 52; Globulin 2.7 g/dL (2.4-3.5); Glucose 146 mg/dL (83-110); Lipase 39 U/L (8-78); Potassium 2.9 mmol/L (3.5-5.1); Protein, Total 5.9 g/dL (5.8-8.1); Sodium 139 mmol/L (136-145)
[2022-08-03 10:47] LABS: Bilirubin Negative (Negative); Blood, Urine Negative (Negative); Clarity Clear (Clear); Glucose, Urine (Dipstick) Normal (Negative); Ketone, Urine Negative (Negative); Leukocyte Negative Leu/uL (Negative); Nitrite Negative (Negative); Protein, Urine (Dipstick) Negative (Neg-Trace); Specific Gravity, Urine 1.013 (1.002-1.036); Urobilinogen 6 mg/dL (Less than 2)
[2022-08-03 11:05] LABS: CKMB 3.7 ng/mL (0-6.6)
[2022-08-03 11:21] LABS: Eosinophils 5 % (0-10); Hypochromia SLIGHT = 6-15 cells (100X) (0-5/hpf); Lymphocytes 31 % (21-51); MDiff Complete? YES; Monocytes 7 % (0-10); Neutrophil 57 % (42-75); Platelet Morphology Comment Appears Decreased
[2022-08-03] MEDS ORDERED: Aspirin Chewable 81 MG TAB ONE (11:53)
[2022-08-03] MEDS ORDERED: Potassium Chloride 20 MEQ TAB ONE (11:53)
[2022-08-03 12:40] LABS: Magnesium 1.8 mg/dL (1.6-2.6)
[2022-08-03 13:23] LABS: Lactic Acid 2.5 mmol/L (0.5-2.2)
[2022-08-03 13:24] LABS: Phosphorus 3.7 mg/dL (2.3-4.7)
[2022-08-03 13:32] LABS: Troponin I 0.051 ng/mL (< 0.028)
[2022-08-03] MEDS ORDERED: Dextrose 5% in Water 1,000 ML IV PRN (13:41)
[2022-08-03] MEDS ORDERED: Dextrose 50% Abboject 50 ML SYRINGE SLOW IVP PRN (13:41)
[2022-08-03] MEDS ORDERED: Acetaminophen 325 MG TAB PO PRN (13:41)
[2022-08-03] MEDS ORDERED: Nitroglycerin 0.4 MG TAB (25 Tab Bottle) SL PRN (13:43)
[2022-08-03] MEDS ORDERED: HumaLOG 300 UNITS/3 ML VIAL SC PRN ×2 (13:43)
[2022-08-03] MEDS ORDERED: Electrolyte Replacement Protocol FS SCH (13:45)
[2022-08-03] MEDS ORDERED: NS 0.9% w/ 40 MEQ KCL 1,000 ML IV SCH (13:45)
[2022-08-03] MEDS ORDERED: Albuterol 200 PUFF (6.7GM INHALER) INH PRN (14:01)
[2022-08-03 15:35] VITALS: BMI 28.8
[2022-08-03 16:10] LABS: Troponin I 0.062 ng/mL (< 0.028)
[2022-08-03] MEDS: Carvedilol 6.25 MG TAB PO SCH (17:31)
[2022-08-03] MEDS: Atorvastatin Calcium 40 MG TAB PO SCH (21:56)
[2022-08-04 03:51] LABS: Hemoglobin 12.8 g/dL (12.0-16.0); Mean Corpuscular HGB CONC 33.3 g/dL (32.0-36.0); Mean Corpuscular Hemoglobin 32.7 pg (27.0-31.0); Mean Corpuscular Volume 98.4 fl (78.0-98.0); Mean Platelet Volume 9.2 fL (7.4-10.4); Platelet Count 70 10x3/uL (130-400); RBC Distribution Width 19.1 % (11.5-14.5); White Blood Cell (WBC) Count 4.5 10x3/uL (4.8-10.8)
[2022-08-04 04:06] LABS: Anion Gap 14 mmol/L (10-20); BUN (Urea Nitrogen) 19 mg/dL (9.8-20.1); Calc. Creatinine Clearance 60 mL/min (70-130); Calcium 10.3 mg/dL (7.8-10.44); Carbon Dioxide 28 mmol/L (23-31); Chloride 106 mmol/L (98-107); Estimated GFR 58; Glucose 120 mg/dL (83-110); Potassium 3.3 mmol/L (3.5-5.1); Sodium 145 mmol/L (136-145)
[2022-08-04 04:14] LABS: Band 1 % (5-11); Eosinophils 4 % (0-10); Lymphocytes 19 % (21-51); MDiff Complete? YES; Monocytes 13 % (0-10); Neutrophil 62 % (42-75); Reactive Lymphocytes 1 % (0-10)
[2022-08-04] MEDS: Levothyroxine Sodium 112 MCG TAB PO SCH (06:05)
[2022-08-04] MEDS ORDERED: Magnesium 2 GM/50 ML(in water) 2 GM in Premix Bag 1 BAG IVPB SCH (08:00)
[2022-08-04] MEDS ORDERED: Potassium Chloride 20 MEQ TAB PO SCH (08:00)
[2022-08-04] MEDS ORDERED: Polyethylene Glycol 3350 17 GM Packet PO SCH (09:00)
[2022-08-04] MEDS: Aspirin 325 MG TAB PO SCH (09:54)
[2022-08-04] MEDS: Carvedilol 6.25 MG TAB PO SCH ×2 (09:54→16:12)
[2022-08-04] MEDS: Clopidogrel Bisulfate 75 MG TAB PO SCH (09:55)
[2022-08-04] MEDS: Famotidine 20 MG TAB PO SCH (09:55)
[2022-08-04] MEDS: DULoxetine 60 MG CAP PO SCH (09:55)
[2022-08-04] MEDS: Atorvastatin Calcium 40 MG TAB PO SCH (21:42)
[2022-08-05] MEDS: Levothyroxine Sodium 112 MCG TAB PO SCH (05:56)
[2022-08-05] MEDS: Clopidogrel Bisulfate 75 MG TAB PO SCH (09:47)
[2022-08-05] MEDS: Aspirin 325 MG TAB PO SCH (09:47)
[2022-08-05] MEDS: DULoxetine 60 MG CAP PO SCH (09:47)
[2022-08-05] MEDS: Famotidine 20 MG TAB PO SCH (09:47)
[2022-08-05] MEDS: Carvedilol 6.25 MG TAB PO SCH (09:47)
[2022-08-05 10:44] VITALS: BP 145/65; TEMP 98.1
== END 2022-08-05 11:37 ==
LOC: ERS 08:59 → 2NO 14:48
PROVIDERS: ADMIT Internal Medicine; ATTEND Internal Medicine
DX: R55 Syncope and collapse (principal); I13.0 Hypertensive heart and chronic kidney disease with heart failure and stage 1 through stage 4 chronic kidney disease, or unspecified chronic kidney disease; E11.22 Type 2 diabetes mellitus with diabetic chronic kidney disease; N18.2 Chronic kidney disease, stage 2 (mild); I50.30 Unspecified diastolic (congestive) heart failure; E03.9 Hypothyroidism, unspecified; E87.6 Hypokalemia; K74.60 Unspecified cirrhosis of liver; K76.82 Hepatic encephalopathy; I25.2 Old myocardial infarction; J44.9 Chronic obstructive pulmonary disease, unspecified; E78.5 Hyperlipidemia, unspecified; R94.31 Abnormal electrocardiogram [ECG] [EKG]; K59.00 Constipation, unspecified; K21.9 Gastro-esophageal reflux disease without esophagitis; R41.82 Altered mental status, unspecified; D61.818 Other pancytopenia; I08.1 Rheumatic disorders of both mitral and tricuspid valves; J90 Pleural effusion, not elsewhere classified; Z79.02 Long term (current) use of antithrombotics/antiplatelets; Z79.82 Long term (current) use of aspirin; Z79.84 Long term (current) use of oral hypoglycemic drugs; Z79.890 Hormone replacement therapy; Z79.899 Other long term (current) drug therapy; Z88.0 Allergy status to penicillin; Z88.2 Allergy status to sulfonamides; Z88.5 Allergy status to narcotic agent; Z91.041 Radiographic dye allergy status
CPT/HCPCS: 51701; 71045; 80048; 80053; 81003; 82140 ×2; 82553; 82962 ×3; 83605; 83690; 83735; 84100; 84484 ×2; 85025 ×2; 87040; 87077; 87086; 87186; 93005; 93306; 93880; 96374; 97116; 99285; G0378 ×4; 36415; 36416; J1815; J3475; J3480

== ENCOUNTER 2022-08-15 20:26 | Emergency (ER) | payer MEDICARE, MEDICAID ==
[2022-08-15] MEDS ORDERED: EPINEPHrine 1 MG/10 ML Abboject SYRINGE ONE (20:30)
[2022-08-15] MEDS ORDERED: Sodium Bicarb 50 MEQ/50 ML VIAL ONE (20:30)
[2022-08-15] MEDS ORDERED: Calcium Chloride 1 GM/10 ML Abboject SYRINGE ONE (20:30)
[2022-08-15] MEDS ORDERED: Morphine 4 MG/ML VIAL ONE ×2 (20:47→20:52)
== END 2022-08-15 20:45 | disposition expired ==
LOC: ERS 20:26
DX: I46.9 Cardiac arrest, cause unspecified (principal); E66.9 Obesity, unspecified; J44.9 Chronic obstructive pulmonary disease, unspecified; K21.9 Gastro-esophageal reflux disease without esophagitis; E11.22 Type 2 diabetes mellitus with diabetic chronic kidney disease; I12.9 Hypertensive chronic kidney disease with stage 1 through stage 4 chronic kidney disease, or unspecified chronic kidney disease; N18.9 Chronic kidney disease, unspecified
CPT/HCPCS: 31500; 92950; 96374; J0171; J2270